=== PATIENT | female | born 1955 | race Caucasian/White ===

== ENCOUNTER → 2023-04-21 10:34 | Outpatient (REF) | payer MEDICARE, OTHER, SELFPAY ==
[2023-04-21 11:07] LABS: Blood Urea Nitrogen 47 mg/dl (7-17); Calcium 8.5 mg/dl (8.4-10.2); Carbon Dioxide 25 mmol/L (22-30); Chloride 106 mmol/L (98-107); Glucose 157 mg/dl (70-99); Potassium 3.8 mmol/L (3.5-5.1); Sodium 138 mmol/L (135-145); eGFR 28.58
== END ==
LOC: OLABN 10:34
PROVIDERS: ATTENDING PHYSICIAN Student in an Organized Health Care Education/Training Program
DX: E11.51 Type 2 diabetes mellitus with diabetic peripheral angiopathy without gangrene (principal)
CPT/HCPCS: 36415; 80048

== ENCOUNTER → 2023-04-25 08:53 | Outpatient (REF) | payer MEDICARE, OTHER, SELFPAY ==
[2023-04-25 10:39] LABS: Blood Urea Nitrogen 46 mg/dl (7-17); Calcium 8.6 mg/dl (8.4-10.2); Carbon Dioxide 22 mmol/L (22-30); Chloride 103 mmol/L (98-107); Glucose 113 mg/dl (70-99); Potassium 4.4 mmol/L (3.5-5.1); Sodium 137 mmol/L (135-145); eGFR 26.88
[2023-04-25 10:45] LABS: NT-proBNP 2360 pg/ml
== END ==
LOC: OLABN 08:53
PROVIDERS: ATTENDING PHYSICIAN Student in an Organized Health Care Education/Training Program
DX: E11.51 Type 2 diabetes mellitus with diabetic peripheral angiopathy without gangrene (principal)
CPT/HCPCS: 36415; 80048; 83880

== ENCOUNTER → 2023-04-28 10:38 | Outpatient (REF) | payer MEDICARE, OTHER, SELFPAY ==
[2023-04-28 11:13] LABS: Magnesium 2.1 mg/dl (1.6-2.3)
[2023-04-28 16:41] LABS: Urine Albumin Negative (Neg - Trace); Urine Bilirubin Negative (Negative); Urine Character Slightly Cloudy (Clear); Urine Color Yellow; Urine Glucose 3+ (Negative); Urine Ketone Negative (Negative); Urine Leukocyte 1+ (Negative); Urine Nitrite Negative (Negative); Urine Occult Blood Negative (Negative); Urine Urobilinogen Negative (Neg - 1+)
[2023-04-28 16:55] LABS: Urine Bacteria Many (Negative); Urine Red Blood Cell None Seen /HPF (0-2); Urine White Cell >100 /HPF (0-5)
== END ==
LOC: OLABN 10:38
PROVIDERS: ATTENDING PHYSICIAN Student in an Organized Health Care Education/Training Program
DX: E11.51 Type 2 diabetes mellitus with diabetic peripheral angiopathy without gangrene (principal); R35.0 Frequency of micturition
CPT/HCPCS: 36415; 81003; 81015; 83735; 87077; 87086; 87186

== ENCOUNTER 2023-05-01 01:01 | Emergency (ER) | payer MEDICARE, OTHER, SELFPAY ==
[2023-05-01 01:01] VITALS: BMI 34.7
[2023-05-01 01:06] VITALS: BP 107/60
[2023-05-01 01:23] LABS: % Basophils 0.5 % (0-2); % Eosinophils 2.7 % (0-6); % Immature Granulocytes 0.5 % (0-0.5); % Monocytes 8.1 % (1.7-9.3); % Neutrophils 65.2 % (42.2-75.2); Absolute Basophils 0.1 10^3/uL (0-0.2); Absolute Eosinophils 0.3 10^3/uL (0-0.7); Absolute Immature Granulocytes 0.1 10^3/uL (0-0.05); Absolute Lymphocytes 2.5 10^3/uL (1.2-3.4); Absolute Monocytes 0.9 10^3/uL (0.1-0.6); Absolute Neutrophils 7.1 10^3/uL (1.4-6.5); Hematocrit 29.6 % (37.0-47.0); Hemoglobin 9.8 g/dL (12.0-16.0); Mean Corp Hgb Conc. 33.1 g/dL (33.0-37.0); Mean Corpuscular Hgb 28.2 pg (27.0-31.0); Mean Corpuscular Volume 85.1 fL (81.0-99.0); Mean Platelet Volume 9.8 fL (7.4-10.4); Nucleated Red Blood Cells % 0 %; Platelet Count 261 10^3/uL (130-400); Red Blood Cell Count 3.48 10^6/uL (4.20-5.40); Red Cell Dist. Width 15.5 % (11.5-14.5); White Blood Cell Count 10.9 10^3/uL (4.8-10.8)
--- NOTE | 2023-05-01 01:30 | ED.GENMED ---
Addendum entered and electronically signed by Sascha Kennedy PA-C 05/04/23 07:26:
Ucx w/ low growth Klebsiella, pt prescribed levofloxacin, appropriate per C&S
Original Note:
History of Present Illness
<Larry Huntley Jr., PA-C - Last Filed: 05/01/23 18:01>
General
Chief Complaint: Musculo-Skeletal Complaint
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
Exam Limitations: none
Time Seen by Provider: 05/01/23 01:03
Nursing documentation reviewed up to this point in time: agreed with
Travel History
Have you had any contact with someone who has COVID-19?: No
Do you have any symptoms of coronavirus? Fever > 100 degrees, chills, cough, shortness of breath, sore throat, loss of taste or smell, muscle aches, or headache?: No
History of Present Illness
History of Present Illness:
The patient is a 68-year-old female with past medical history of neuropathy and vascular disease status post right-sided BKA, A-fib currently on Eliquis CHF hypertension hyperlipidemia, CKD, diabetes presenting to the emergency department today with
multiple concerns. Patient's main concern is 5 days of left lower abdominal pain bilateral flank pain and lower extremity achiness. She claims that she has been taking medications for neuropathy but claims that symptoms been worsening recently
chest pain shortness of breath fevers upper respiratory symptoms. She has a history of kidney stones as well as diverticulitis that felt somewhat similar.
Past History
<Larry Huntley Jr., PA-C - Last Filed: 05/01/23 18:01>
Past History
ED Past Medical History: Arrthythmia (Atrial fibrillation), CAD, CHF, HTN, Hypercholesterolemia, IDDM, Psychiatric (Anxiety, bipolar disorder, Depression), Other (Peripheral Vascular disease, Cellulitis, MRSA, PNA, Cellulitis, UTI, Chronic back ain,
Diabetic neuropathy, PNA, Glaucoma, Anemia iron def, Herniated disc) and Other (Herniated disc)
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
Social History
Tobacco: Non-smoker (Secondhand smoke exposure)
Alcohol: None
Drug: None
Personal:
Living: senior living ([facility])
Employment: Employed
Family History
Family History: Other (Father with MS, mother with diabetes, sister with diabetes)
Review of Systems
<Larry Huntley Jr., PA-C - Last Filed: 05/01/23 18:01>
Review of Systems
Allergies reviewed?: Yes
All Other Systems: ROS reviewed and negative except as documented in HPI and ROS
Phy Exam
<Larry Huntley Jr., PA-C - Last Filed: 05/01/23 18:01>
Physical Exam
Physical Exam:
GENERAL: Alert , in no apparent distress
EYE: pupils equal and reactive
NECK: Supple, no significant adenopathy.
ENT: o/p clr, mmm.
CARDIAC: Regular rate and rhythm .
LUNGS: Clear breath sounds bilaterally, no acute respiratory distress, no wheezes/rales/rhonchi
ABDOMEN: Left lower quadrant abdominal pain.
NEUROLOGICAL: Alert and oriented, no focal neuro deficits
SKIN: Warm and dry, skin intact.
MUSCULOSKELETAL: No edema, well perfused.
PSYCH: Normal and appropriate interaction.
Course
<Larry Huntley Jr., PA-C - Last Filed: 05/01/23 18:01>
Orders/Labs/Results
Orders:
Orders
05/01/23 01:16
CBC/With Diff [Complete Blood Count/With Diff] Urgent
CMP [Comprehensive Metabolic Panel] Urgent
Lipase Urgent
Comment: ADD ON
05/01/23 01:30
Add On- LAB Urgent
Tests Added?: lipase
05/01/23 01:45
CT Abd/pel (oral only)-[facility] Only Urgent
Comment:
Reason For Exam: llq pain and flank pain
Iohexol [Omnipaque] See Protocol PO NOW STA
05/01/23 01:56
Lactic Acid Urgent
Urinalysis Reflex To Culture Urgent
Date Specimen was Collected: 05/01/23
Time Specimen was Collected: 01:54
Urine Microscopic Reflex Cult Urgent
Urine Culture Urgent
KELSEY Source: U
Specimen Description:
Date Specimen was Collected: 05/01/23
Time Specimen was Collected: 01:54
05/01/23 02:02
Ondansetron Injectable [Zofran] 4 mg IV NOW STA
05/01/23 06:09
Sulfamethox./Trimethoprim Ds [Bactrim Ds 800 mg/160 mg] 1 tablet PO NOW STA
05/01/23 06:25
LevoFLOXacin [Levaquin] 750 mg .ROUTE .STK-MED ONE
05/01/23 06:37
LevoFLOXacin [Levaquin] 750 mg PO NOW STA
Abnormal Lab Results
05/01/23 05/01/23
01:16 01:56
WBC 10.9 H 10^3/uL
(4.8-10.8)
RBC 3.48 L 10^6/uL
(4.20-5.40)
Hgb 9.8 L g/dL
(12.0-16.0)
Hct 29.6 L %
(37.0-47.0)
RDW 15.5 H %
(11.5-14.5)
Abs Immat Gran (auto) 0.1 H 10^3/uL
(0-0.05)
Absolute Neuts (auto) 7.1 H 10^3/uL
(1.4-6.5)
Absolute Monos (auto) 0.9 H 10^3/uL
(0.1-0.6)
BUN 59 H mg/dl
(7-17)
Creatinine 2.0 H mg/dL
(0.6-1.0)
Glucose 246 H mg/dl
(70-99)
Total Protein 6.0 L g/dl
(6.3-8.2)
Albumin 3.3 L g/dl
(3.5-5.0)
Ur Occult Blood Reflex Trace A
(Negative)
Leukocyte Esterase Rfl 2+ A
(Negative)
Urine WBC (Reflex) >100 A /HPF
(0-5)
Urine Bacteria (Reflex) Few A
(Negative)
Urine Glucose 3+ A
(Negative)
05/01/23 01:16
05/01/23 01:16
Vital Signs
Initial and Last Documented VS:
Initial Vital Signs
Temp Pulse Resp BP Pulse Ox
97.9 F 65 16 107/60 99
05/01/23 01:06 05/01/23 01:06 05/01/23 01:06 05/01/23 01:06 05/01/23 01:06
Last Documented Vital Signs
Temp Pulse Resp BP Pulse Ox
97.9 F 70 38 107/51 99
05/01/23 01:06 05/01/23 04:15 05/01/23 04:15 05/01/23 04:00 05/01/23 02:15
<Elieser Cristina DO - Last Filed: 05/01/23 06:38>
Orders/Labs/Results
Orders:
Orders
05/01/23 01:16
CBC/With Diff [Complete Blood Count/With Diff] Urgent
CMP [Comprehensive Metabolic Panel] Urgent
Lipase Urgent
Comment: ADD ON
05/01/23 01:30
Add On- LAB Urgent
Tests Added?: lipase
05/01/23 01:45
CT Abd/pel (oral only)-[facility] Only Urgent
Comment:
Reason For Exam: llq pain and flank pain
Iohexol [Omnipaque] See Protocol PO NOW STA
05/01/23 01:56
Lactic Acid Urgent
Urinalysis Reflex To Culture Urgent
Date Specimen was Collected: 05/01/23
Time Specimen was Collected: 01:54
Urine Microscopic Reflex Cult Urgent
Urine Culture Urgent
KELSEY Source: U
Specimen Description:
Date Specimen was Collected: 05/01/23
Time Specimen was Collected: 01:54
05/01/23 02:02
Ondansetron Injectable [Zofran] 4 mg IV NOW STA
05/01/23 06:09
Sulfamethox./Trimethoprim Ds [Bactrim Ds 800 mg/160 mg] 1 tablet PO NOW STA
05/01/23 06:25
LevoFLOXacin [Levaquin] 750 mg .ROUTE .STK-MED ONE
05/01/23 06:37
LevoFLOXacin [Levaquin] 750 mg PO NOW STA
Abnormal Lab Results
05/01/23 05/01/23
01:16 01:56
WBC 10.9 H 10^3/uL
(4.8-10.8)
RBC 3.48 L 10^6/uL
(4.20-5.40)
Hgb 9.8 L g/dL
(12.0-16.0)
Hct 29.6 L %
(37.0-47.0)
RDW 15.5 H %
(11.5-14.5)
Abs Immat Gran (auto) 0.1 H 10^3/uL
(0-0.05)
Absolute Neuts (auto) 7.1 H 10^3/uL
(1.4-6.5)
Absolute Monos (auto) 0.9 H 10^3/uL
(0.1-0.6)
BUN 59 H mg/dl
(7-17)
Creatinine 2.0 H mg/dL
(0.6-1.0)
Glucose 246 H mg/dl
(70-99)
Total Protein 6.0 L g/dl
(6.3-8.2)
Albumin 3.3 L g/dl
(3.5-5.0)
Ur Occult Blood Reflex Trace A
(Negative)
Leukocyte Esterase Rfl 2+ A
(Negative)
Urine WBC (Reflex) >100 A /HPF
(0-5)
Urine Bacteria (Reflex) Few A
(Negative)
Urine Glucose 3+ A
(Negative)
05/01/23 01:16
05/01/23 01:16
Vital Signs
Initial and Last Documented VS:
Initial Vital Signs
Temp Pulse Resp BP Pulse Ox
97.9 F 65 16 107/60 99
05/01/23 01:06 05/01/23 01:06 05/01/23 01:06 05/01/23 01:06 05/01/23 01:06
Last Documented Vital Signs
Temp Pulse Resp BP Pulse Ox
97.9 F 70 38 107/51 99
05/01/23 01:06 05/01/23 04:15 05/01/23 04:15 05/01/23 04:00 05/01/23 02:15
<Larry Huntley Jr., PA-C - Last Filed: 05/01/23 18:01>
MDM/Problems Addressed
MDM/Problems Addressed:
68-year-old female presenting to the emergency department today with concerns mainly of left lower quad abdominal pain flank pain as well as leg discomfort worsening over the past 5 days. Does have chronic leg pain as a feels slightly worse than
usual. Also claims that she is had diverticulitis in the past has some left-sided abdominal pain as well as flank pain has a history of stones. Plan for CT scan for further assessment as well as urinalysis and labs. On my examination no specific
chest pain shortness of breath fevers, vital signs are normal upon arrival here. CT scan pending when care transition to attending physician. Patient stable throughout ER stay.
<Larry Huntley Jr., PA-C - Last Filed: 05/01/23 18:01>
*Critical Care Note
Total Time (30-74mins, 75-104mins- exclusive of procedures): Not Applicable
ED Attending Note
<Larry Huntley Jr., PA-C - Last Filed: 05/01/23 18:01>
-
Portions of this chart may have been created with voice recognition software.� Occasional wrong word or��sound alike� substitutions may have occurred due to the inherent limitations of voice recognition software.
<Elieser Cristina DO - Last Filed: 05/01/23 06:38>
ED Attending Note
Patient seen and examined by attending physician: Yes
I performed the substantive portion of visit, reviewed & personally made and approve the management plan that is documented in note by myself or JOSUE.: Yes
ED Attending Note:
68-year-old female presents with low back pain present for the last 4 to 5 days. Patient treated for UTI on Macrobid. CT scan shows mild left hydroureteronephrosis without a visualized obstructing calculi likely reflecting a recently passed stone
versus an ascending UTI. Urinalysis does show signs of UTI. She was on Macrobid. Will switch to Bactrim based on patient's allergy profile. Patient in agreement. Will be sent to the [facility]. Patient was seen in conjunction with the PA.
I have reviewed and agree with the history and treatment plan presented. On my independent physical exam, patient is awake, alert, and in no acute distress. Heart is regular rate and rhythm. Lungs are clear to auscultation bilaterally no wheezes
rales or rhonchi abdomen is soft and nontender plan. Plan is discharge home to [facility].
Discharge Plan
Departure
Patient Disposition: Long-Term/SNF
Date of Disposition: 05/01/23
Time of Disposition: 06:12
Discharge Problem:
Acute UTI, Acute flank pain
Instructions: Flank Pain (DC), Urinary Tract Infection, Adult ED
Prescriptions:
New
levofloxacin 750 mg tablet
750 mg PO DAILY 7 Days Qty: 7 0RF
No Action
Eliquis 5 MG tablet
5 mg PO BID
trazodone 50 MG tablet
75 mg PO HS
carvedilol 6.25 MG tablet
6.25 mg PO BID Qty: 60 0RF
insulin aspart U-100 [Novolog FlexPen U-100 Insulin] 300 UNITS/3 ML insulin pen
See Rx Instructions .ROUTE .COMPLEX
Rx Instructions:
71-150= 0
151-200= 2
201-250= 4
251-300= 6
301-350= 8
351-400= 10
>400= 12
fluoxetine 40 mg Capsule
40 mg PO DAILY
lamotrigine [Lamictal] 150 mg Tablet
150 mg PO DAILY
atorvastatin 80 mg tablet
80 mg PO HS
acetaminophen 325 mg Tablet
650 mg PO Q4H PRN (Reason: mild pain/fever >100.4)
lidocaine 4 % Adhesive Patch,Medicated
1 patch TOPICAL HS PRN (Reason: Pain)
magnesium hydroxide [Milk of Magnesia] 400 mg/5 mL Suspension
30 ml PO HS PRN (Reason: lack of bm)
diclofenac sodium 1 % Gel
1 g TOPICAL BID
Entresto 24-26 mg Tablet
1 tab PO BID
Levemir U-100 Insulin 1,000 UNITS/10 ML solution
20 units SC BID@829,2029
latanoprost [Xalatan] 0.005 % Drops
1 drp OPHTHALMIC (EYE) DAILY
Rx Instructions:
left eye
bumetanide 2 mg Tablet
2 mg PO BID
ondansetron HCl 4 mg Tablet
4 mg PO Q6HPRN PRN (Reason: nausea)
sennosides-docusate sodium [Senna with Docusate Sodium] 8.6-50 mg Tablet
1 tab-cap PO HS
loperamide [Imodium A-D] 2 mg Tablet
2 mg PO Q6H PRN (Reason: diarrhea)
bisacodyl 10 mg Suppository
10 mg MD DAILY PRN (Reason: constipation)
pantoprazole [Protonix] 40 mg Tablet,Delayed Release (Dr/Ec)
40 mg PO DAILY
ferrous sulfate [iron] 325 mg (65 mg iron) Tablet
325 mg PO DAILY
Fleet Enema 19-7 gram/118 mL Enema
118 ml MD ONCE
dorzolamide-timolol 22.3-6.8 mg/mL Drops
1 drp OPHTHALMIC (EYE) BID
Rx Instructions:
left eye
lorazepam [Ativan] 1 mg Tablet
1 mg PO BID
brimonidine [Alphagan P] 0.15 % Drops
1 drp OPHTHALMIC (EYE) BID
Rx Instructions:
left eye
Vicks Vaporub 4.7-1.2-2.6 % Ointment
1 applic TOPICAL [id number] PRN (Reason: congestion)
Refresh Optive Advanced 0.5-1-0.5 % Drops
1 drp OPHTHALMIC (EYE) DAILY
Farxiga 10 mg Tablet
10 mg PO DAILY
insulin aspart U-100 [Novolog U-100 Insulin aspart] 100 unit/mL Solution
12 unit SC TID
cyclobenzaprine 5 mg Tablet
5 mg PO HS
aspirin 81 mg Tablet,Chewable
81 mg PO DAILY Qty: 0 0RF
buspirone 5 mg Tablet
5 mg PO DAILY
diphenhydramine HCl 25 mg Tablet
25 mg PO DAILY PRN (Reason: pruritus)
clobetasol 0.05 % Ointment
1 applic TOPICAL DAILY
fluocinolone 0.01 % Solution
1 applic TOPICAL DAILY
cefdinir 300 mg capsule
300 mg PO BID Qty: 14 0RF
Referrals:
Paulo Loera DO [Family Provider] -
Interventions
Interventions:
*Risk Screen - Suicide Last Done: 05/01/23 01:06
*General Assessment Last Done: 05/01/23 01:06
*Neglect/Abuse Screening Last Done: 05/01/23 01:06
ED- Fall Risk Assessment Last Done: 05/01/23 01:50
*ED COVID-19 Vaccine History Last Done: 05/01/23 07:00
*Nursing Disposition Last Done: 05/01/23 07:00
ED-Musculoskeletal Assessment Last Done: 05/01/23 01:31
Discharge Date and Time
Discharge Date/Time: 05/01/23 07:00
[2023-05-01 01:38] LABS: ALT (SGPT) 10 U/L (0-35); AST (SGOT) 15 U/L (14-36); Albumin 3.3 g/dl (3.5-5.0); Alkaline Phosphatase 117 U/L (38-126); Blood Urea Nitrogen 59 mg/dl (7-17); Carbon Dioxide 25 mmol/L (22-30); Chloride 99 mmol/L (98-107); Estimated Creatinine Clearance 33 ml/min; Glucose 246 mg/dl (70-99); Potassium 4.2 mmol/L (3.5-5.1); Sodium 137 mmol/L (135-145); Total Bilirubin 0.5 mg/dl (0.2-1.3); eGFR 26.88
[2023-05-01 01:53] LABS: Lipase 107 U/L (23-300)
[2023-05-01 02:00] VITALS: BP 95/43
[2023-05-01 02:07] LABS: Urine Albumin Trace (Neg - Trace); Urine Bilirubin Negative (Negative); Urine Character Slightly Cloudy (Clear); Urine Color Straw; Urine Glucose 3+ (Negative); Urine Ketone Negative (Negative); Urine Leukocyte 2+ (Negative); Urine Nitrite Negative (Negative); Urine Occult Blood Trace (Negative); Urine Urobilinogen Negative (Neg - 1+)
[2023-05-01] MEDS: ZOFRAN 4 MG IV (02:11)
[2023-05-01] MEDS: OMNIPAQUE 50 ML PO (02:12)
[2023-05-01 02:13] LABS: Urine White Cell >100 /HPF (0-5)
[2023-05-01 02:14] LABS: Urine Bacteria Few (Negative); Urine Red Blood Cell 0-2 /HPF (0-2)
[2023-05-01 02:22] LABS: Lactic Acid 1.5 mmol/L (0.7-2.0)
[2023-05-01 03:00] VITALS: BP 102/49
[2023-05-01 04:00] VITALS: BP 107/51
[2023-05-01] MEDS: LEVAQUIN 750 MG PO (06:47)
== END 2023-05-01 07:00 ==
LOC: EMR 01:01
PROVIDERS: Physician Assistant; EMERGENCY PHYSICIAN Student in an Organized Health Care Education/Training Program; FAMILY PHYSICIAN Student in an Organized Health Care Education/Training Program
DX: N39.0 Urinary tract infection, site not specified (principal); R10.32 Left lower quadrant pain; R07.9 Chest pain, unspecified; R06.02 Shortness of breath; N13.30 Unspecified hydronephrosis; M54.50 Low back pain, unspecified; M79.606 Pain in leg, unspecified; E11.40 Type 2 diabetes mellitus with diabetic neuropathy, unspecified; I48.91 Unspecified atrial fibrillation; I13.0 Hypertensive heart and chronic kidney disease with heart failure and stage 1 through stage 4 chronic kidney disease, or unspecified chronic kidney disease; I50.9 Heart failure, unspecified; N18.9 Chronic kidney disease, unspecified; I25.10 Atherosclerotic heart disease of native coronary artery without angina pectoris; E78.00 Pure hypercholesterolemia, unspecified; F31.9 Bipolar disorder, unspecified; F41.9 Anxiety disorder, unspecified; E11.22 Type 2 diabetes mellitus with diabetic chronic kidney disease; E11.36 Type 2 diabetes mellitus with diabetic cataract; E11.51 Type 2 diabetes mellitus with diabetic peripheral angiopathy without gangrene; M51.25 Other intervertebral disc displacement, thoracolumbar region; K57.92 Diverticulitis of intestine, part unspecified, without perforation or abscess without bleeding; H40.9 Unspecified glaucoma; G89.29 Other chronic pain; Z95.5 Presence of coronary angioplasty implant and graft; Z87.440 Personal history of urinary (tract) infections; Z86.14 Personal history of Methicillin resistant Staphylococcus aureus infection; Z89.511 Acquired absence of right leg below knee; Z79.01 Long term (current) use of anticoagulants; Z79.4 Long term (current) use of insulin; Z79.82 Long term (current) use of aspirin; Z88.1 Allergy status to other antibiotic agents; Z88.0 Allergy status to penicillin
CPT/HCPCS: 99284; 96374; 74176; 80053; 81003; 81015; 83605; 83690; 85025; 87077; 87086; 87186

== ENCOUNTER → 2023-05-03 11:16 | Outpatient (REF) | payer MEDICARE, OTHER, SELFPAY ==
[2023-05-03 11:41] LABS: % Basophils 0.6 % (0-2); % Immature Granulocytes 0.5 % (0-0.5); % Lymphocytes 34.8 % (20.5-51.1); % Monocytes 8.9 % (1.7-9.3); % Neutrophils 53.2 % (42.2-75.2); Absolute Basophils 0.1 10^3/uL (0-0.2); Absolute Eosinophils 0.2 10^3/uL (0-0.7); Absolute Monocytes 0.8 10^3/uL (0.1-0.6); Absolute Neutrophils 4.6 10^3/uL (1.4-6.5); Hematocrit 29.3 % (37.0-47.0); Hemoglobin 9.4 g/dL (12.0-16.0); Mean Corp Hgb Conc. 32.1 g/dL (33.0-37.0); Mean Corpuscular Hgb 28.5 pg (27.0-31.0); Mean Corpuscular Volume 88.8 fL (81.0-99.0); Mean Platelet Volume 10.9 fL (7.4-10.4); Nucleated Red Blood Cells % 0 %; Platelet Count 218 10^3/uL (130-400); Red Cell Dist. Width 15.9 % (11.5-14.5); White Blood Cell Count 8.7 10^3/uL (4.8-10.8)
[2023-05-03 11:46] LABS: Blood Urea Nitrogen 64 mg/dl (7-17); Carbon Dioxide 25 mmol/L (22-30); Chloride 99 mmol/L (98-107); Glucose 101 mg/dl (70-99); Iron 56 ug/dl (37-170); Potassium 4.1 mmol/L (3.5-5.1); Sodium 136 mmol/L (135-145); eGFR 17.95
[2023-05-03 11:48] LABS: NT-proBNP 1570 pg/ml
[2023-05-03 12:13] LABS: Ferritin 58.1 ng/ml (11.1-264.0)
== END ==
LOC: OLABN 11:16
PROVIDERS: ATTENDING PHYSICIAN Student in an Organized Health Care Education/Training Program
DX: I50.40 Unspecified combined systolic (congestive) and diastolic (congestive) heart failure (principal); D50.9 Iron deficiency anemia, unspecified
CPT/HCPCS: 36415; 80048; 82728; 83540; 83880; 85025

== ENCOUNTER 2023-05-06 13:11 | Emergency (ER) | payer MEDICARE, OTHER, SELFPAY ==
[2023-05-06 13:14] VITALS: BP 120/54; BMI 34.8
[2023-05-06 13:40] LABS: % Basophils 0.5 % (0-2); % Eosinophils 1.9 % (0-6); % Immature Granulocytes 0.5 % (0-0.5); % Lymphocytes 26.8 % (20.5-51.1); % Monocytes 5.8 % (1.7-9.3); % Neutrophils 64.5 % (42.2-75.2); Absolute Basophils 0.1 10^3/uL (0-0.2); Absolute Eosinophils 0.2 10^3/uL (0-0.7); Absolute Immature Granulocytes 0.1 10^3/uL (0-0.05); Absolute Lymphocytes 2.6 10^3/uL (1.2-3.4); Absolute Monocytes 0.6 10^3/uL (0.1-0.6); Absolute Neutrophils 6.3 10^3/uL (1.4-6.5); Hematocrit 33.4 % (37.0-47.0); Hemoglobin 11.1 g/dL (12.0-16.0); Mean Corp Hgb Conc. 33.2 g/dL (33.0-37.0); Mean Corpuscular Hgb 28.1 pg (27.0-31.0); Mean Corpuscular Volume 84.6 fL (81.0-99.0); Mean Platelet Volume 10.3 fL (7.4-10.4); Nucleated Red Blood Cells % 0 %; Platelet Count 235 10^3/uL (130-400); Red Blood Cell Count 3.95 10^6/uL (4.20-5.40); Red Cell Dist. Width 15.9 % (11.5-14.5); White Blood Cell Count 9.8 10^3/uL (4.8-10.8)
--- NOTE | 2023-05-06 13:40 | ED.GENMED ---
History of Present Illness
<Miriam Coleman PA-C - Last Filed: 05/06/23 22:30>
General
Chief Complaint: Abdominal Pain
Source: patient
Exam Limitations: none
Time Seen by Provider: 05/06/23 13:25
Nursing documentation reviewed up to this point in time: agreed with
Travel History
Have you had any contact with someone who has COVID-19?: No
Do you have any symptoms of coronavirus? Fever > 100 degrees, chills, cough, shortness of breath, sore throat, loss of taste or smell, muscle aches, or headache?: No
History of Present Illness
History of Present Illness:
This is a 68-year-old female with a past medical history of CKD, insulin-dependent diabetes, CHF, hypertension presenting to emergency department today with diffuse abdominal pain and distention for the past 5 days. She states that when the pain
started, was very mild and she was seen here in the ED on Tuesday for urinary symptoms and was treated for UTI. She was treated with levofloxacin and is currently still taking it. She denies any fevers or chills at home. She states that she has
also had constipation for the past week. She states that she normally has constipation but is usually able to be cleared with Colace and other medications. She states that she has not had a bowel movement in 6 days. She also has associated nausea
and vomiting. She states that she is barely able to get anything down without vomiting. She denies any history of abdominal surgeries.
Past History
<Miriam Coleman PA-C - Last Filed: 05/06/23 22:30>
Past History
ED Past Medical History: Arrthythmia (Atrial fibrillation), CAD, CHF, HTN, Hypercholesterolemia, IDDM, Psychiatric (Anxiety, bipolar disorder, Depression), Other (Peripheral Vascular disease, Cellulitis, MRSA, PNA, Cellulitis, UTI, Chronic back ain,
Diabetic neuropathy, PNA, Glaucoma, Anemia iron def, Herniated disc) and Other (Herniated disc)
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
Social History
Tobacco: Non-smoker (Secondhand smoke exposure)
Alcohol: None
Drug: None
Personal:
Living: penitentiary ([facility])
Employment: Employed
Family History
Family History: Other (Father with [place], mother with diabetes, sister with diabetes)
Review of Systems
<Miriam Coleman PA-C - Last Filed: 05/06/23 22:30>
Review of Systems
All Other Systems: ROS reviewed and negative except as documented in HPI and ROS
Phy Exam
<Miriam Coleman PA-C - Last Filed: 05/06/23 22:30>
Physical Exam
Physical Exam:
Vitals: vitals are stable, patient is afebrile
General: Patient is ill-appearing
Skin: warm and dry, no rashes or lesions
Head: normocephalic, atraumatic
Cardiac: regular rate and rhythm, no murmurs
Pulm: normal respiratory effort, no wheezes, rales, or rhonchi
Abdomen: abdomen is distended and rigid, diffusely tender to palpation, non-tympanic to percussion.
Neuro: AAO x3.
Course
<Miriam Coleman PA-C - Last Filed: 05/06/23 22:30>
Orders/Labs/Results
Orders:
Orders
05/06/23 13:13
Electrocardiogram (*1) Urgent
Reason for Study: Abdominal Pain
EKG- Treatment ONCE
IV Insert/Care/Rem.- Treatment PRN
05/06/23 13:22
Complete Blood Count/With Diff Urgent
Comprehensive Metabolic Panel Urgent
Lipase Urgent
02/16/24 13:54
0.9% Sodium Chloride 1000 ml [Nss] 1,000 ml IV BOLUS
05/06/23 14:20
HYDROmorphone [Dilaudid] 0.5 mg IV NOW STA
Ondansetron Injectable [Zofran] 4 mg IV NOW STA
05/06/23 14:35
CT Abd/pel Without Iv Or Oral Urgent
Comment:
Reason For Exam: diffuse ab pain, abdominal distension
05/06/23 15:53
Polyethylene Glycol Powder [Miralax] 17 grams PO NOW STA
05/06/23 17:48
Oxycodone [Roxicodone] 5 mg PO NOW STA
Abnormal Lab Results
05/06/23
13:22
RBC 3.95 L 10^6/uL
(4.20-5.40)
Hgb 11.1 L g/dL
(12.0-16.0)
Hct 33.4 L %
(37.0-47.0)
RDW 15.9 H %
(11.5-14.5)
Abs Immat Gran (auto) 0.1 H 10^3/uL
(0-0.05)
BUN 62 H mg/dl
(7-17)
Creatinine 2.7 H mg/dL
(0.6-1.0)
Glucose 184 H mg/dl
(70-99)
Alkaline Phosphatase 137 H U/L
(38-126)
05/06/23 13:22
05/06/23 13:22
Vital Signs
Initial and Last Documented VS:
Initial Vital Signs
Temp Pulse Resp BP Pulse Ox
98.0 F 69 17 120/54 98
05/06/23 13:14 05/06/23 13:14 05/06/23 13:14 05/06/23 13:14 05/06/23 13:14
Last Documented Vital Signs
Temp Pulse Resp BP Pulse Ox
98.0 F 60 14 112/48 97
05/06/23 13:14 05/06/23 15:00 05/06/23 15:00 05/06/23 15:00 05/06/23 14:15
<Kehinde Navin Marquez, - Last Filed: 05/06/23 14:36>
Orders/Labs/Results
Orders:
Orders
05/06/23 13:13
Electrocardiogram (*1) Urgent
Reason for Study: Abdominal Pain
EKG- Treatment ONCE
IV Insert/Care/Rem.- Treatment PRN
05/06/23 13:22
Complete Blood Count/With Diff Urgent
Comprehensive Metabolic Panel Urgent
Lipase Urgent
05/06/23 13:54
0.9% Sodium Chloride 1000 ml [Nss] 1,000 ml IV BOLUS
05/06/23 14:20
HYDROmorphone [Dilaudid] 0.5 mg IV NOW STA
Ondansetron Injectable [Zofran] 4 mg IV NOW STA
05/06/23 14:35
CT Abd/pel Without Iv Or Oral Urgent
Comment:
Reason For Exam: diffuse ab pain, abdominal distension
05/06/23 15:53
Polyethylene Glycol Powder [Miralax] 17 grams PO NOW STA
05/06/23 17:48
Oxycodone [Roxicodone] 5 mg PO NOW STA
Abnormal Lab Results
05/06/23
13:22
RBC 3.95 L 10^6/uL
(4.20-5.40)
Hgb 11.1 L g/dL
(12.0-16.0)
Hct 33.4 L %
(37.0-47.0)
RDW 15.9 H %
(11.5-14.5)
Abs Immat Gran (auto) 0.1 H 10^3/uL
(0-0.05)
BUN 62 H mg/dl
(7-17)
Creatinine 2.7 H mg/dL
(0.6-1.0)
Glucose 184 H mg/dl
(70-99)
Alkaline Phosphatase 137 H U/L
(38-126)
05/06/23 13:22
05/06/23 13:22
Vital Signs
Initial and Last Documented VS:
Initial Vital Signs
Temp Pulse Resp BP Pulse Ox
98.0 F 69 17 120/54 98
05/06/23 13:14 05/06/23 13:14 05/06/23 13:14 05/06/23 13:14 05/06/23 13:14
Last Documented Vital Signs
Temp Pulse Resp BP Pulse Ox
98.0 F 60 14 112/48 97
05/06/23 13:14 05/06/23 15:00 05/06/23 15:00 05/06/23 15:00 05/06/23 14:15
<Miriam Coleman PA-C - Last Filed: 05/06/23 22:30>
MDM/Problems Addressed
Differential Diagnosis Includes:
ddx include small bowel obstruction, large bowel obstruction, constipation, gastritis, perforated diverticulitis
MDM/Problems Addressed:
abdominal pain
nausea
vomiting
Chronic conditions affecting care: DM, HTN and Kidney disease
<Miriam Coleman PA-C - Last Filed: 05/06/23 22:30>
*Pulse Oximetry
Patient hypoxic: no
*Critical Care Note
Total Time (30-74mins, 75-104mins- exclusive of procedures): Not Applicable
Data Reviewed
Review of Other/Old Records Reveals: Records (Reviewed ER physician and patient patient from 05/01/2023) and Discharge Summary (Reviewed discharge summary from 10/23/22)
<Miriam Coleman PA-C - Last Filed: 05/06/23 22:30>
Patient Management
Escalation/DeEscalation of care consider admission/obs:
This is a 68-year-old female with a past medical history of CKD, insulin-dependent diabetes, CHF, hypertension presenting to emergency department today with diffuse abdominal pain and distention for the past 5 days. On exam, she appears chronically
ill, has an elevated BMI, and has a rigid abdomen with moderate tenderness. Her CT scan of the abdomen revealed left increase in left ureteral dilation when compared to previous scan, no stone. No bowel obstruction. She is medically stable at this
point, will give miralax and pain xontrol will discharge back to [facility]
ED Attending Note
<Miriam Coleman PA-C - Last Filed: 05/06/23 22:30>
-
Portions of this chart may have been created with voice recognition software.� Occasional wrong word or��sound alike� substitutions may have occurred due to the inherent limitations of voice recognition software.
<Kehinde Marquez DO - Last Filed: 05/06/23 14:36>
ED Attending Note
Patient seen and examined by attending physician: Yes
I performed the substantive portion of visit, reviewed & personally made and approve the management plan that is documented in note by myself or JOSUE.: Yes
I performed a history and physical exam of patient and discussed management with resident, I reviewed resident's note and agree with documented findings and plan of care.: Yes
ED Attending Note:
I evaluated the patient at bedside. The patient appears chronically ill with elevated BMI. White count normal but she does have moderate tenderness on examination. She has been constipated and reports vomiting.
Discharge Plan
Departure
Patient Disposition: Home (Routine Discharge)
Date of Disposition: 05/06/23
Time of Disposition: 16:05
Patient with high blood pressure during this ER visit?: No
Condition: Good
Discharge Problem:
Abdominal pain
Instructions: Constipation, Adult (DC), Abdominal Pain
Prescriptions:
No Action
Eliquis 5 MG tablet
5 mg PO BID
trazodone 50 MG tablet
75 mg PO HS
insulin aspart U-100 [Novolog FlexPen U-100 Insulin] 300 UNITS/3 ML insulin pen
0 - 12 sliding scale dose SC TID@0800,1200,1700
Rx Instructions:
Sliding Scale: if 71-150= 0; 151-200= 2; 201-250= 4; 251-300= 6; 301-350= 8; 351-400= 10; >400= 12
fluoxetine 40 mg Capsule
40 mg PO DAILY@1430
Rx Instructions:
taken w/ 10mg = 50mg
lamotrigine [Lamictal] 150 mg Tablet
150 mg PO QPM
atorvastatin 80 mg tablet
80 mg PO QPM
acetaminophen 325 mg Tablet
650 mg PO Q4H PRN (Reason: mild pain/fever >100.4)
lidocaine 4 % Adhesive Patch,Medicated
1 patch TOPICAL HS PRN (Reason: Pain)
Rx Instructions:
apply to left lateral shoulder
magnesium hydroxide [Milk of Magnesia] 400 mg/5 mL Suspension
30 ml PO HS PRN (Reason: lack of bm)
diclofenac sodium 1 % Gel
2 g TOPICAL BID@999,1900
Rx Instructions:
apply to neck areas
Entresto 24-26 mg Tablet
1 tab PO BID
Levemir U-100 Insulin 1,000 UNITS/10 ML solution
20 units SC BID@829,2029
latanoprost [Xalatan] 0.005 % Drops
1 drp BOTH EYES HS
bumetanide 2 mg Tablet
2 mg PO BID@0830,143
loperamide [Imodium A-D] 2 mg Tablet
2 mg PO Q6H PRN (Reason: diarrhea)
bisacodyl 10 mg Suppository
10 mg [place] DAILY PRN (Reason: if mom ineffective)
pantoprazole [Protonix] 40 mg Tablet,Delayed Release (Dr/Ec)
40 mg PO DAILY@2029
ferrous sulfate [iron] 325 mg (65 mg iron) Tablet
325 mg PO MOWEFR
Fleet Enema 19-7 gram/118 mL Enema
118 ml [place] DAILY PRN (Reason: no results from suppository/refuse suppository)
dorzolamide-timolol 22.3-6.8 mg/mL Drops
1 drp LEFT EYE BID@
lorazepam [Ativan] 1 mg Tablet
1 mg PO BID
brimonidine [Alphagan P] 0.15 % Drops
1 drp LEFT EYE BID@
Vicks Vaporub 4.7-1.2-2.6 % Ointment
1 applic TOPICAL [id number] PRN (Reason: congestion)
Rx Instructions:
apply to chest congestion
Refresh Optive Advanced 0.5-1-0.5 % Drops
1 drp BOTH EYES DAILY PRN (Reason: glaucoma)
dapagliflozin propanediol [Farxiga] 10 mg Tablet
10 mg PO DAILY
insulin aspart U-100 [Novolog U-100 Insulin aspart] 100 unit/mL Solution
12 unit SC TID@0800,1200,1700
diphenhydramine HCl 25 mg Tablet
25 mg PO DAILY PRN (Reason: pruritus)
clobetasol 0.05 % Ointment
1 applic TOPICAL DAILY PRN (Reason: vaginal redness)
fluocinolone 0.01 % Solution
1 applic TOPICAL DAILY
Rx Instructions:
apply to excoriated areas on left parietal scalp and right posterior neck
levofloxacin 750 mg tablet
750 mg PO DAILY 7 Days Qty: 7 0RF
fluoxetine 10 mg Capsule
10 mg PO DAILY@1430
Rx Instructions:
taken w/ 40mg = 50mg
docusate sodium 100 mg Capsule
100 mg PO DAILY
ondansetron 4 mg tablet,disintegrating
4 mg PO Q6H PRN (Reason: nausea/vomiting)
Saccharomyces boulardii [Probiotic (S.boulardii)] 250 mg Capsule
250 mg PO BID@
oseltamivir 30 mg capsule
30 mg PO QPM
Ricola 2 mg Lozenge
2 mg PO Q4H PRN (Reason: cough)
carvedilol 6.25 MG tablet
6.25 mg PO BID@
aspirin 81 mg tablet,chewable
81 mg PO QPM
Referrals:
Paulo Loera DO [Family Provider] -
Activity Restrictions/Additional Instructions:
Please follow up with your primary care provider.
Please return to the emergency department should you experience any chest pain, shortness of breath, acute worsening of your pain, or other concerning signs or symptoms.
Interventions
Interventions:
*General Assessment Last Done: 05/06/23 13:14
*Neglect/Abuse Screening Last Done: 05/06/23 13:14
ED- Fall Risk Assessment Last Done: 05/06/23 13:35
*Nursing Disposition Last Done: 05/06/23 17:58
ER-Irkbkk-Rqxnkwqjkc Assessment Last Done: 05/06/23 13:35
Discharge Date and Time
Discharge Date/Time: 05/06/23 17:59
[2023-05-06 13:59] LABS: ALT (SGPT) 12 U/L (0-35); AST (SGOT) 19 U/L (14-36); Albumin 3.9 g/dl (3.5-5.0); Alkaline Phosphatase 137 U/L (38-126); Blood Urea Nitrogen 62 mg/dl (7-17); Calcium 9.4 mg/dl (8.4-10.2); Carbon Dioxide 26 mmol/L (22-30); Chloride 103 mmol/L (98-107); Estimated Creatinine Clearance 25 ml/min; Glucose 184 mg/dl (70-99); Lipase 75 U/L (23-300); Potassium 4.4 mmol/L (3.5-5.1); Sodium 138 mmol/L (135-145); Total Bilirubin 0.7 mg/dl (0.2-1.3); Total Protein 6.8 g/dl (6.3-8.2); eGFR 18.75
[2023-05-06 14:03] VITALS: BP 83/56
[2023-05-06] MEDS: NSS 1000 IV (14:17)
[2023-05-06 14:18] VITALS: BP 101/81
[2023-05-06] MEDS: DILAUDID 0.5 MG IV (14:26)
[2023-05-06] MEDS: ZOFRAN 4 MG IV (14:26)
[2023-05-06 15:00] VITALS: BP 112/48
[2023-05-06] MEDS: MIRALAX 17 GRAMS PO (16:01)
[2023-05-06] MEDS: ROXICODONE 5 MG PO (17:50)
== END 2023-05-06 17:59 | disposition home or self-care (01) ==
LOC: EMR 13:11
PROVIDERS: Emergency Medicine; EMERGENCY PHYSICIAN Emergency Medicine; FAMILY PHYSICIAN Student in an Organized Health Care Education/Training Program
DX: R10.9 Unspecified abdominal pain (principal); R14.0 Abdominal distension (gaseous); R11.2 Nausea with vomiting, unspecified; K59.00 Constipation, unspecified; E11.22 Type 2 diabetes mellitus with diabetic chronic kidney disease; E11.40 Type 2 diabetes mellitus with diabetic neuropathy, unspecified; E11.36 Type 2 diabetes mellitus with diabetic cataract; I13.0 Hypertensive heart and chronic kidney disease with heart failure and stage 1 through stage 4 chronic kidney disease, or unspecified chronic kidney disease; I50.9 Heart failure, unspecified; I48.91 Unspecified atrial fibrillation; F41.9 Anxiety disorder, unspecified; F31.9 Bipolar disorder, unspecified; M54.9 Dorsalgia, unspecified; E78.00 Pure hypercholesterolemia, unspecified; I25.10 Atherosclerotic heart disease of native coronary artery without angina pectoris; H40.9 Unspecified glaucoma; D64.9 Anemia, unspecified; G89.29 Other chronic pain; Z95.5 Presence of coronary angioplasty implant and graft; Z79.4 Long term (current) use of insulin; Z87.440 Personal history of urinary (tract) infections; Z86.14 Personal history of Methicillin resistant Staphylococcus aureus infection; Z87.01 Personal history of pneumonia (recurrent); Z89.511 Acquired absence of right leg below knee
CPT/HCPCS: 99285; 96374; 96375; 96361; 74176; 80053; 83690; 85025; 93005

== ENCOUNTER 2023-05-08 21:22 | Emergency (ER) | payer MEDICARE, OTHER, SELFPAY ==
[2023-05-08 21:26] VITALS: BP 114/103
[2023-05-08 21:32] VITALS: BP 114/103
[2023-05-08 21:38] VITALS: BMI 35.3
--- NOTE | 2023-05-08 21:47 | ED.GENMED ---
History of Present Illness
General
Chief Complaint: Abdominal Pain
Source: patient
Travel History
Have you had any contact with someone who has COVID-19?: No
Do you have any symptoms of coronavirus? Fever > 100 degrees, chills, cough, shortness of breath, sore throat, loss of taste or smell, muscle aches, or headache?: No
Symptoms:: constipation
History of Present Illness
History of Present Illness:
This patient is a 68-year-old female presents emergency department from [facility] with complaints of abdominal pain and constipation. She states that the last time she had a bowel movement was 8 days ago although she says that staff told her
there was a small amount of stool in her diaper and she does not remember passing this. She denies numbness or tingling in the perianal perineal area. There is no report of blood in her stool or black stool. She describes persistent abdominal
discomfort mostly at the left upper quadrant but sometimes on the right upper quadrant area without exacerbating relieving factors. She has been taking constipation relieving medications without relief of symptoms. She says sometimes she feels
nauseous but she is still tolerating food and drink. She had a few episodes of vomiting earlier in the week. She denies fever, chills, chest pain, shortness of breath, urinary retention, dysuria, urgency, frequency, or other complaints. Shortly
prior to presentation tonight, patient reportedly asked her to disimpact her. He used the handle of the spoon to gently try to do so but says that there was 'nothing there' and he remove the splint.
Past History
Past History
ED Past Medical History: Arrthythmia (Atrial fibrillation), CAD, CHF, HTN, Hypercholesterolemia, IDDM, Psychiatric (Anxiety, bipolar disorder, Depression), Other (Peripheral Vascular disease, Cellulitis, MRSA, PNA, Cellulitis, UTI, Chronic back ain,
Diabetic neuropathy, PNA, Glaucoma, Anemia iron def, Herniated disc) and Other (Herniated disc)
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
Social History
Tobacco: Non-smoker (Secondhand smoke exposure)
Alcohol: None
Drug: None
Personal:
Living: snf ([facility])
Employment: Employed
Family History
Family History: Other (Father with [place], mother with diabetes, sister with diabetes)
Phy Exam
Physical Exam
Physical Exam:
GENERAL: Alert , in no apparent distress, making jokes with staff
EYE: pupils equal and reactive
NECK: Supple, no significant adenopathy.
ENT: o/p clr, mmm.
CARDIAC: Regular rate and rhythm .
LUNGS: Clear breath sounds bilaterally, no acute respiratory distress, no wheezes/rales/rhonchi
ABDOMEN: Soft, nonspecific mid abdominal tenderness, no r/g, normal active bowel sounds
NEUROLOGICAL: Alert and oriented, no focal neuro deficits
SKIN: Warm and dry, skin intact.
MUSCULOSKELETAL: No edema, well perfused. Left BKA noted
PSYCH: Normal and appropriate interaction.
RECTAL: RN's present, ext hemorrhoids noted, nontender exam, heme neg smear, no stool noted
Course
Orders/Labs/Results
Orders:
Orders
05/08/23 21:45
UA Reflex to Culture [Urinalysis Reflex To Culture] Stat
Date Specimen was Collected: 05/08/23
Time Specimen was Collected: 23:59
Obstruct Series W/PA Chest [CR Obstruct Series W/pa Chest] Urgent
Comment:
Reason For Exam: abd pain, constipation
05/08/23 23:16
BMP [Basic Metabolic Panel] Urgent
CBC/No Diff [Complete Blood Count/No Diff] Stat
05/09/23 00:12
Urine Microscopic Reflex Cult Stat
Abnormal Lab Results
05/08/23 05/09/23
23:16 00:12
RBC 3.43 L 10^6/uL
(4.20-5.40)
Hgb 9.5 L g/dL
(12.0-16.0)
Hct 29.0 L %
(37.0-47.0)
MCHC 32.8 L g/dL
(33.0-37.0)
RDW 15.6 H %
(11.5-14.5)
BUN 56 H mg/dl
(7-17)
Creatinine 2.4 H mg/dL
(0.6-1.0)
Glucose 189 H mg/dl
(70-99)
Ur Occult Blood Reflex 3+ A
(Negative)
Urine RBC 7-10 A /HPF
(0-2)
Urine Bacteria (Reflex) Few A
(Negative)
Urine Glucose 3+ A
(Negative)
05/08/23 23:16
05/08/23 23:16
Vital Signs
Initial and Last Documented VS:
Initial Vital Signs
Temp Pulse Resp BP Pulse Ox
98.6 F 69 9 114/103 95
05/08/23 21:26 05/08/23 21:26 05/08/23 21:26 05/08/23 21:26 05/08/23 21:26
Last Documented Vital Signs
Temp Pulse Resp BP Pulse Ox
98.6 F 71 13 137/57 99
05/08/23 21:26 05/08/23 22:00 05/08/23 22:00 05/08/23 22:00 05/09/23 00:15
*Critical Care Note
Total Time (30-74mins, 75-104mins- exclusive of procedures): Not Applicable
Update Note
Update Note:
Patient presents to the Emergency Department with __abdominal pain and suspected constipation
Number and Complexity of Problems Addressed at the Encounter
� Chronic conditions affecting care:
� Acute Exacerbation and/or Progression of Chronic Illness:
� Differential Diagnosis includes: But not limited to bowel obstruction, constipation, IBS perforation, etc.
Amount and/or Complexity of Data to be Reviewed and Analyzed
� I performed an independent evaluation of and my interpretation is:
EKG:
CT:
Xrays:read by me, nad, no obstruction, no fa
Laboratory Studies:
Other:u/a...not c/w uti, microscopic blood noted.
� Review of other/old records reveals: Patient was in the emergency department May 01 and diagnosed with a UTI placed on antibiotics, culture grew out low counts of Klebsiella sensitive to the antibiotic she was put on. She
returned May 06, had a CT scan at that time that showed mild hydro on the left, was clinically stable and was transferred back.
� Clinical information was obtained by an independent historian:
� Prescriptions/Medications Considered but not given:
� Further testing considered but not performed:
Risk of Complications and/or Morbidity or Mortality of Patient Management
� Social determinants of health affecting care:
� Discussion with other providers (PCP, Hospitalists, Consultants, etc):
� Escalation of care including admission/observation vs risk of discharge considered:104 am several reassessments, pt remains comfortable. At one point, she requested pain medication, weighing risk and benefits espec as relates
to constipation related s/e with opioids, we decided to avoid at this time, pt agreeable to this and in no distress. Aware of findings, especially no constipation noted, and imort of f/u. At this point, given 3 ED visits related to same sxs, would
recommend GI f/u.
ED Attending Note
-
Portions of this chart may have been created with voice recognition software.� Occasional wrong word or��sound alike� substitutions may have occurred due to the inherent limitations of voice recognition software.
Discharge Plan
Departure
Patient Disposition: Home (Routine Discharge)
Date of Disposition: 05/09/23
Time of Disposition: 01:06
Patient with high blood pressure during this ER visit?: Yes
Condition: Good
Discharge Problem:
Abdominal pain
Instructions: Abdominal Pain
Prescriptions:
No Action
Eliquis 5 MG tablet
5 mg PO BID
trazodone 50 MG tablet
75 mg PO HS
insulin aspart U-100 [Novolog FlexPen U-100 Insulin] 300 UNITS/3 ML insulin pen
0 - 12 sliding scale dose SC TID@0800,1200,1700
Rx Instructions:
Sliding Scale: if 71-150= 0; 151-200= 2; 201-250= 4; 251-300= 6; 301-350= 8; 351-400= 10; >400= 12
fluoxetine 40 mg Capsule
40 mg PO DAILY@1430
Rx Instructions:
taken w/ 10mg = 50mg
lamotrigine [Lamictal] 150 mg Tablet
150 mg PO QPM
atorvastatin 80 mg tablet
80 mg PO QPM
acetaminophen 325 mg Tablet
650 mg PO Q4H PRN (Reason: mild pain/fever >100.4)
lidocaine 4 % Adhesive Patch,Medicated
1 patch TOPICAL HS PRN (Reason: Pain)
Rx Instructions:
apply to left lateral shoulder
magnesium hydroxide [Milk of Magnesia] 400 mg/5 mL Suspension
30 ml PO HS PRN (Reason: constipation)
diclofenac sodium 1 % Gel
2 g TOPICAL BID@1000,1900
Rx Instructions:
apply to neck areas
Entresto 24-26 mg Tablet
1 tab PO BID
Levemir U-100 Insulin 1,000 UNITS/10 ML solution
20 units SC BID@0830,2029
latanoprost [Xalatan] 0.005 % Drops
1 drp BOTH EYES HS
bumetanide 2 mg Tablet
2 mg PO BID@0830,1430
loperamide [Imodium A-D] 2 mg Tablet
2 mg PO Q6H PRN (Reason: diarrhea)
bisacodyl 10 mg Suppository
10 mg VT DAILY PRN (Reason: no BM 3 days, if MOM ineffective)
pantoprazole [Protonix] 40 mg Tablet,Delayed Release (Dr/Ec)
40 mg PO DAILY@2029
ferrous sulfate [iron] 325 mg (65 mg iron) Tablet
325 mg PO MOWEFR
Fleet Enema 19-7 gram/118 mL Enema
118 ml VT DAILY PRN (Reason: no results from suppository/refuse suppository)
dorzolamide-timolol 22.3-6.8 mg/mL Drops
1 drp LEFT EYE BID@0835,1835
lorazepam [Ativan] 1 mg Tablet
1 mg PO BID
brimonidine [Alphagan P] 0.15 % Drops
1 drp LEFT EYE BID@0830,1830
Refresh Optive Advanced 0.5-1-0.5 % Drops
1 drp BOTH EYES DAILY PRN (Reason: glaucoma)
dapagliflozin propanediol [Farxiga] 10 mg Tablet
10 mg PO DAILY
insulin aspart U-100 [Novolog U-100 Insulin aspart] 100 unit/mL Solution
12 unit SC TID@0800,1200,1700
diphenhydramine HCl 25 mg Tablet
25 mg PO DAILY PRN (Reason: pruritus)
clobetasol 0.05 % Ointment
1 applic TOPICAL DAILY PRN (Reason: vaginal redness)
fluocinolone 0.01 % Solution
1 applic TOPICAL DAILY
Rx Instructions:
apply to excoriated areas on left parietal scalp and right posterior neck
levofloxacin 750 mg tablet
750 mg PO DAILY 7 Days Qty: 7 0RF
Rx Instructions:
through 05/08/2023
fluoxetine 10 mg Capsule
10 mg PO DAILY@1430
Rx Instructions:
taken w/ 40mg = 50mg
docusate sodium 100 mg Capsule
100 mg PO DAILY
ondansetron 4 mg tablet,disintegrating
4 mg PO Q6H PRN (Reason: nausea/vomiting)
Saccharomyces boulardii [Probiotic (S.boulardii)] 250 mg Capsule
250 mg PO BID@829,1829
oseltamivir 30 mg capsule
30 mg PO QPM
Rx Instructions:
daily x 10 days first date given 05/03/2023 prophylactically
Ricola 2 mg Lozenge
2 mg PO Q4H PRN (Reason: cough)
carvedilol 6.25 MG tablet
6.25 mg PO BID@829,1829
aspirin 81 mg tablet,chewable
81 mg PO QPM
Referrals:
Quinn Panda MD [Active] - Next open appointment
UNKNOWN - PT DOES,NOT KNOW [Family Provider] -
Activity Restrictions/Additional Instructions:
YOU HAVE SOME ABNORMALITIES NOTED ON YOUR URINE SAMPLE, AND ALSO CAT SCAN FROM EARLIER THIS MONTH THAT REQUIRE CLOSE FOLLOW UP. SEE ATTACHED. PLEASE SEE YOUR PRIMARY CARE DOCTOR PROMPTLY, AND ALSO MAKE ARRANGEMENTS FOR GI FOLLOW UP. IF YOU
DEVELOP FEVER, VOMITING, BLEEDING, INCREASING/NEW ABDOMINAL PAIN, CHEST PAIN, TROUBLE BREATHING, OR OTHER WORRISOME SIGNS, GO TO THE ER IMMEDIATELY!
Interventions
Interventions:
*Risk Screen - Suicide Last Done: 05/08/23 21:30
*General Assessment Last Done: 05/08/23 21:30
*Neglect/Abuse Screening Last Done: 05/08/23 21:30
ED- Fall Risk Assessment Last Done: 05/08/23 21:30
*ED COVID-19 Vaccine History Last Done: 05/08/23 21:29
*Nursing Disposition Last Done: 05/09/23 04:11
HM-Qeddip-Hstexxwdhy Assessment Last Done: 05/09/23 04:08
Discharge Date and Time
Discharge Date/Time: 05/09/23 04:11
[2023-05-08 22:00] VITALS: BP 137/57
[2023-05-08 23:28] LABS: Hemoglobin 9.5 g/dL (12.0-16.0); Mean Corp Hgb Conc. 32.8 g/dL (33.0-37.0); Mean Corpuscular Hgb 27.7 pg (27.0-31.0); Mean Corpuscular Volume 84.5 fL (81.0-99.0); Mean Platelet Volume 9.8 fL (7.4-10.4); Platelet Count 171 10^3/uL (130-400); Red Blood Cell Count 3.43 10^6/uL (4.20-5.40); Red Cell Dist. Width 15.6 % (11.5-14.5); White Blood Cell Count 8.2 10^3/uL (4.8-10.8)
[2023-05-08 23:49] LABS: Blood Urea Nitrogen 56 mg/dl (7-17); Calcium 8.6 mg/dl (8.4-10.2); Carbon Dioxide 26 mmol/L (22-30); Chloride 101 mmol/L (98-107); Estimated Creatinine Clearance 28 ml/min; Glucose 189 mg/dl (70-99); Potassium 3.5 mmol/L (3.5-5.1); Sodium 138 mmol/L (135-145)
[2023-05-09 00:19] LABS: Urine Albumin Trace (Neg - Trace); Urine Bilirubin Negative (Negative); Urine Character Clear (Clear); Urine Color Yellow; Urine Glucose 3+ (Negative); Urine Ketone Negative (Negative); Urine Leukocyte Negative (Negative); Urine Nitrite Negative (Negative); Urine Occult Blood 3+ (Negative); Urine Urobilinogen Negative (Neg - 1+)
[2023-05-09 00:34] LABS: Urine Squamous Cell 0-2 /LPF (Few)
[2023-05-09 00:36] LABS: Urine Bacteria Few (Negative)
--- NOTE | 2023-05-09 04:08 | EDRN ---
Pt incontinent urine. Perineal care provided, clean diaper placed. Pt able to log roll herself. Pt's cell phone and cell phone cord placed in zip lock bag which she is holding. Report to transport crew.
== END 2023-05-09 04:11 | disposition home or self-care (01) ==
LOC: EMR 21:22
PROVIDERS: EMERGENCY PHYSICIAN Emergency Medicine
DX: R10.9 Unspecified abdominal pain (principal); K59.00 Constipation, unspecified; I48.91 Unspecified atrial fibrillation; I25.10 Atherosclerotic heart disease of native coronary artery without angina pectoris; I11.0 Hypertensive heart disease with heart failure; I50.9 Heart failure, unspecified; E78.00 Pure hypercholesterolemia, unspecified; F41.9 Anxiety disorder, unspecified; F31.9 Bipolar disorder, unspecified; E11.40 Type 2 diabetes mellitus with diabetic neuropathy, unspecified; E11.51 Type 2 diabetes mellitus with diabetic peripheral angiopathy without gangrene; E11.36 Type 2 diabetes mellitus with diabetic cataract; H40.9 Unspecified glaucoma; Z77.22 Contact with and (suspected) exposure to environmental tobacco smoke (acute) (chronic); Z82.49 Family history of ischemic heart disease and other diseases of the circulatory system; Z83.3 Family history of diabetes mellitus; Z87.440 Personal history of urinary (tract) infections; Z89.511 Acquired absence of right leg below knee; Z95.5 Presence of coronary angioplasty implant and graft
CPT/HCPCS: 99283; 74022; 80048; 81003; 81015; 85027

== ENCOUNTER 2023-06-30 23:17 | Emergency (ER) | payer MEDICARE, OTHER, SELFPAY ==
[2023-06-30 23:19] VITALS: BP 161/68; BMI 37.2
[2023-06-30 23:21] VITALS: BP 161/68
[2023-06-30 23:43] LABS: % Basophils 0.8 % (0-2); % Eosinophils 3.8 % (0-6); % Immature Granulocytes 0.5 % (0-0.5); % Lymphocytes 30.4 % (20.5-51.1); % Neutrophils 55.5 % (42.2-75.2); Absolute Basophils 0.1 10^3/uL (0-0.2); Absolute Eosinophils 0.3 10^3/uL (0-0.7); Absolute Lymphocytes 2.7 10^3/uL (1.2-3.4); Absolute Monocytes 0.8 10^3/uL (0.1-0.6); Absolute Neutrophils 4.9 10^3/uL (1.4-6.5); Hematocrit 30.7 % (37.0-47.0); Hemoglobin 10.3 g/dL (12.0-16.0); Mean Corp Hgb Conc. 33.6 g/dL (33.0-37.0); Mean Corpuscular Hgb 28.2 pg (27.0-31.0); Mean Corpuscular Volume 84.1 fL (81.0-99.0); Mean Platelet Volume 10.5 fL (7.4-10.4); Nucleated Red Blood Cells % 0 %; Platelet Count 207 10^3/uL (130-400); Red Blood Cell Count 3.65 10^6/uL (4.20-5.40); Red Cell Dist. Width 15.4 % (11.5-14.5); White Blood Cell Count 8.8 10^3/uL (4.8-10.8)
[2023-06-30 23:59] LABS: ALT (SGPT) 13 U/L (0-35); AST (SGOT) 17 U/L (14-36); Albumin 4.2 g/dl (3.5-5.0); Alkaline Phosphatase 121 U/L (38-126); Blood Urea Nitrogen 56 mg/dl (7-17); Calcium 9.2 mg/dl (8.4-10.2); Carbon Dioxide 22 mmol/L (22-30); Chloride 103 mmol/L (98-107); Estimated Creatinine Clearance 38 ml/min; Glucose 241 mg/dl (70-99); Lipase 97 U/L (23-300); Potassium 4.2 mmol/L (3.5-5.1); Sodium 135 mmol/L (135-145); Total Bilirubin 0.4 mg/dl (0.2-1.3); Total Protein 7.1 g/dl (6.3-8.2); Urine Albumin Trace (Neg - Trace); Urine Bilirubin Negative (Negative); Urine Character Clear (Clear); Urine Color Yellow; Urine Glucose 3+ (Negative); Urine Ketone Negative (Negative); Urine Leukocyte 1+ (Negative); Urine Nitrite Negative (Negative); Urine Occult Blood Negative (Negative); Urine Specific Gravity 1.005 (<1.030); Urine Urobilinogen Negative (Neg - 1+)
[2023-07-01] VITALS (11 sets, daily range): BP systolic 101–156; BP diastolic 42–70
[2023-07-01 00:40] LABS: Urine Amorphous Seen; Urine Squamous Cell >30 /LPF (Few)
[2023-07-01 00:41] LABS: Urine Bacteria Few (Negative); Urine White Cell >100 /HPF (0-5)
--- NOTE | 2023-07-01 03:20 | EDRN ---
this RN received the pt from previous lieutenant shift supervisor RN, the pt is resting in stretcher in the lowest position, side rails up x2, call spencer within reach, HOB elevated, no s/s of distress, VS WNL, NSR in the 60's, no c/o chest pain, no c/o SOB, RA Sp02
98%, the pt c/o abdominal pain that is tender to touch with distension,the pt states to this RN that she has not had a BM x2 days, no c/o N/V/D, the pt stated to this RN, 'I want to go home, no one is doing anything for me here, no one has been in
to see me, i am uncomfortable', this RN assured the pt that the provider would come in to see her and speak with her, this RN offered the pt a warm blanker, will continue to monitor the pt closely
--- NOTE | 2023-07-01 03:24 | EDRN ---
this RN noted that the pt has a right BKA
--- NOTE | 2023-07-01 03:51 | EDRN ---
the pt was taken to xray, on the way to xray the pt stated to this RN, 'I really just should go home, my pain in my stomach is getting so much worse, i just need to go home', this RN explained to the pt that the pt is beginning to have testing done
now to figure out why the pt is having pain, the pt is agreeable to xray, provider notified, will continue to monitor the pt closely
--- NOTE | 2023-07-01 04:54 | EDRN ---
awaiting for provider to see the pt
--- NOTE | 2023-07-01 05:04 | EDRN ---
Dr. Cristina currently at the pts bedside speaking with the pt
[2023-07-01] MEDS: ZOFRAN 4 MG IV (05:08)
[2023-07-01] MEDS: MORPHINE SULFATE 4 MG IV (05:08)
--- NOTE | 2023-07-01 05:16 | ED.GENMED ---
History of Present Illness
General
Chief Complaint: Abdominal Pain
Source: patient
Exam Limitations: none
Time Seen by Provider: 07/01/23 03:48
Nursing documentation reviewed up to this point in time: agreed with
Travel History
Have you had any contact with someone who has COVID-19?: No
Do you have any symptoms of coronavirus? Fever > 100 degrees, chills, cough, shortness of breath, sore throat, loss of taste or smell, muscle aches, or headache?: No
History of Present Illness
History of Present Illness:
Pleasant 68-year-old female who presents from [facility] with abdominal distention and pain especially on the left side. She states that this pain began this morning. She states that she feels constipated and has not had a bowel movement for
the last 2 days. She reports no nausea, vomiting, or diarrhea. Denies any sick contacts.
Past History
Past History
ED Past Medical History: Arrthythmia (Atrial fibrillation), CAD, CHF, HTN, Hypercholesterolemia, IDDM, Psychiatric (Anxiety, bipolar disorder, Depression), Other (Peripheral Vascular disease, Cellulitis, MRSA, PNA, Cellulitis, UTI, Chronic back ain,
Diabetic neuropathy, PNA, Glaucoma, Anemia iron def, Herniated disc) and Other (Herniated disc)
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
Social History
Tobacco: Non-smoker (Secondhand smoke exposure)
Alcohol: None
Drug: None
Personal:
Living: fci ([facility])
Employment: Employed
Family History
Family History: Other (Father with NM, mother with diabetes, sister with diabetes)
Review of Systems
Review of Systems
Allergies reviewed?: Yes
Other source history: transfer record
All Other Systems: ROS reviewed and negative except as documented in HPI and ROS
Constitutional: Reports no symptoms
EENT: Reports no symptoms
Respiratory: Reports no symptoms
Cardiac: Reports no symptoms
ABD/GI: Reports abdominal pain
: Denies difficulty voiding
Musculoskeletal: Reports no symptoms
Skin: Reports no symptoms
Neurological: Reports no symptoms
Endocrine: Reports no symptoms
Hematologic/Lymphatic: Reports no symptoms
Psychiatric: Reports anxiety
Phy Exam
General Physical Exam
General Presentation: well appearing and no apparent distress
General Skin: warm and dry
General Habitus: normal
General Mental: alert
General Hydration: appears well hydrated
ENT Exam
ENT Exam: EOMI, pharynx normal, neck supple and normocephalic
Eye Exam
Eye Exam: PERRL, cornea clear and conjunctiva normal
Cardiovascular Exam
Cardiovascular Exam: regular rate/rhythm, no edema, no murmur and normal peripheral pulses
Pulmonary Exam
Pulmonary Exam: lungs clear, no respiratory distress, no rales, no crackles, no rhonchi, no stridor, no wheezing and no cough
Gastrointestinal Exam
Gastrointestinal Exam: normal bowel sounds and distended
Palpation: left lower quadrant: Moderate tenderness and generalized: Mild tenderness
Neurological Exam
Neurological Exam: alert, oriented x3, no motor deficits and speech normal
Musculoskeletal Exam
Musculoskeletal Exam: full ROM and no edema
Skin Exam
Skin Exam: normal color, warm/dry, no rash and no petechia
Psychiatric Exam
Psychiatric Exam: normal mood/affect
Course
Orders/Labs/Results
Orders:
Orders
06/30/23 23:25
Complete Blood Count/With Diff Urgent
Comprehensive Metabolic Panel Urgent
Lipase Urgent
Urinalysis Reflex To Culture Urgent
Date Specimen was Collected: 06/30/23
Time Specimen was Collected: 23:24
Urine Microscopic Reflex Cult Urgent
Urine Culture Urgent
KELSEY Source: U
Specimen Description:
Date Specimen was Collected: 06/30/23
Time Specimen was Collected: 23:24
07/01/23 03:22
Abdomen Xray - 1 View [CR Abdomen - 1 View] Urgent
Comment:
Reason For Exam: no BM x2 days
07/01/23 04:55
CT Abd/pel Without Iv Or Oral Urgent
Comment: changed per DR Cristina due labs
Reason For Exam: diffuse abd pain
07/01/23 05:04
Morphine Sulfate 4 mg IV NOW STA
Ondansetron Injectable [Zofran] 4 mg IV NOW STA
07/01/23 06:58
Fosfomycin [Monurol] 3 gm PO ONCE ONE
Abnormal Lab Results
06/30/23 07/01/23
23:25 08:45
RBC 3.65 L 10^6/uL
(4.20-5.40)
Hgb 10.3 L g/dL
(12.0-16.0)
Hct 30.7 L %
(37.0-47.0)
RDW 15.4 H %
(11.5-14.5)
MPV 10.5 H fL
(7.4-10.4)
Absolute Monos (auto) 0.8 H 10^3/uL
(0.1-0.6)
BUN 56 H mg/dl
(7-17)
Creatinine 1.8 H mg/dL
(0.6-1.0)
Glucose 241 H mg/dl
(70-99)
Leukocyte Esterase Rfl 1+ A
(Negative)
Urine RBC 3-6 A /HPF
(0-2)
Urine WBC (Reflex) >100 A /HPF
(0-5)
Urine Bacteria (Reflex) Few A
(Negative)
Urine Glucose 3+ A
(Negative)
POC Glucose 162 H mg/dl
(70-99)
06/30/23 23:25
06/30/23 23:25
Vital Signs
Initial and Last Documented VS:
Initial Vital Signs
Pulse Resp BP Pulse Ox
71 11 161/68 98
06/30/23 23:19 06/30/23 23:19 06/30/23 23:19 06/30/23 23:19
Last Documented Vital Signs
Temp Pulse Resp BP Pulse Ox
98.1 F 82 16 135/61 96
07/01/23 09:27 07/01/23 09:27 07/01/23 09:27 07/01/23 09:27 07/01/23 09:27
*Critical Care Note
Total Time (30-74mins, 75-104mins- exclusive of procedures): Not Applicable
Update Note
Update Note:
CT abdomen/pelvis without contrast
Comparison 05/06/2023
IMPRESSION:
-Findings appear similar to 05/06/2023. There is redemonstrated moderate left hydroureter and mild left hydronephrosis without nephroureterolithiasis. Suggestion of mild trabeculation of the urinary bladder wall is also similar to prior, without
associated perivesical stranding.
-Overall stool burden is mild. No evidence of stercoral inflammation or significant impaction.
Additional findings:
-The visualized lung bases are clear. Moderate to severe coronary artery calcification.
-Cholelithiasis in the gallbladder neck. The gallbladder is mildly distended although without pericholecystic inflammation or tensile appearance of the fundus. Incidental note of a right para-hepatic cyst, stable.
-Normal pancreas, spleen and adrenal glands.
-No hydronephrosis in the right kidney. Exophytic cyst at the upper pole of the right kidney.
-No small bowel obstruction or significant wall thickening. Normal appendix. No colitis or diverticulitis. No intraperitoneal free air or free fluid.
-Normal appearance of the reproductive organs.
-No abdominal aortic aneurysm or retroperitoneal hemorrhage. Mild atherosclerotic calcification.
-No acute osseous abnormality.
ED Attending Note
-
Portions of this chart may have been created with voice recognition software.� Occasional wrong word or��sound alike� substitutions may have occurred due to the inherent limitations of voice recognition software.
Discharge Plan
Departure
Patient Disposition: Residential/SNF
Date of Disposition: 07/01/23
Time of Disposition: 06:57
Discharge Problem:
Abdominal pain
Instructions: Abdominal Pain
Prescriptions:
No Action
Eliquis 5 MG tablet
5 mg PO Q12H
trazodone 50 MG tablet
75 mg PO HS
insulin aspart U-100 [Novolog FlexPen U-100 Insulin] 300 UNITS/3 ML insulin pen
0 - 12 sliding scale dose SC TID@0800,1200,1700
Rx Instructions:
Sliding Scale: if 71-150= 0; 151-200= 2; 201-250= 4; 251-300= 6; 301-350= 8; 351-400= 10; >400= 12
fluoxetine 40 mg Capsule
40 mg PO DAILY@1430
Patient Comments:
06/30/2023: taken w/ 10mg = 50mg
lamotrigine [Lamictal] 150 mg Tablet
150 mg PO QPM
atorvastatin 80 mg tablet
80 mg PO QPM
acetaminophen 325 mg Tablet
650 mg PO Q4H PRN (Reason: mild pain/fever >100.4)
lidocaine 4 % Adhesive Patch,Medicated
1 patch TOPICAL HS PRN (Reason: Pain)
Rx Instructions:
apply to left lateral shoulder
diclofenac sodium 1 % Gel
2 g TOPICAL BID@1000,1900
Patient Comments:
06/30/2023: apply to neck areas
Entresto 24-26 mg Tablet
1 tab PO BID
latanoprost [Xalatan] 0.005 % Drops
1 drp BOTH EYES HS
bumetanide 2 mg Tablet
2 mg PO BID@0830,1430
loperamide [Imodium A-D] 2 mg Tablet
2 mg PO Q6H PRN (Reason: diarrhea)
bisacodyl 10 mg Suppository
10 mg IL DAILY PRN (Reason: no BM 3 days, if MOM ineffective)
pantoprazole [Protonix] 40 mg Tablet,Delayed Release (Dr/Ec)
40 mg PO DAILY@2029
ferrous sulfate [iron] 325 mg (65 mg iron) Tablet
325 mg PO MOWEFR
Fleet Enema 19-7 gram/118 mL Enema
118 ml IL DAILY PRN (Reason: no results from suppository/refuse suppository)
dorzolamide-timolol 22.3-6.8 mg/mL Drops
1 drp LEFT EYE BID@0835,1835
lorazepam [Ativan] 1 mg Tablet
1 mg PO BID
brimonidine [Alphagan P] 0.15 % Drops
1 drp LEFT EYE BID@0830,1830
insulin aspart U-100 [Novolog U-100 Insulin aspart] 100 unit/mL Solution
12 unit SC TID@0800,1200,1700
fluocinolone 0.01 % Solution
1 applic TOPICAL DAILY
Patient Comments:
06/30/2023: apply to excoriated areas on left parietal scalp and right posterior neck
fluoxetine 10 mg Capsule
10 mg PO DAILY@1430
Patient Comments:
06/30/2023: taken w/ 40mg = 50mg
ondansetron 4 mg tablet,disintegrating
4 mg PO Q6H PRN (Reason: nausea/vomiting)
carvedilol 6.25 MG tablet
6.25 mg PO BID@0830,1830
aspirin 81 mg tablet,chewable
81 mg PO QPM
polyethylene glycol 3350 [Miralax] 17 gram Powder In Packet
17 g PO Q48H
dextromethorphan-guaifenesin [Diabetic Tussin DM] 10-100 mg/5 mL Liquid
10 ml PO Q6H PRN (Reason: cough)
aripiprazole [Abilify] 5 mg Tablet
5 mg PO DAILY@2029
insulin glargine [Lantus Solostar U-100 Insulin] 100 unit/mL (3 mL) Insulin Pen
20 unit SC BID@0830,183
Jardiance 25 mg Tablet
25 mg PO DAILY
Referrals:
Paulo Loera DO [Family Provider] -
Interventions
Interventions:
*Risk Screen - Suicide Last Done: 06/30/23 23:23
*General Assessment Last Done: 06/30/23 23:23
*Neglect/Abuse Screening Last Done: 06/30/23 23:23
ED- Fall Risk Assessment Last Done: 07/01/23 03:24
*ED COVID-19 Vaccine History Last Done: 06/30/23 23:23
*Nursing Disposition Last Done: 07/01/23 09:27
MC-Drxret-Makzjvlaqr Assessment Last Done: 07/01/23 03:24
Discharge Date and Time
Discharge Date/Time: 07/01/23 09:30
Print Language: TAMAZIGHT
--- NOTE | 2023-07-01 05:55 | EDRN ---
this RN noticed that the pts Sp02 dipped to 86%, this RN placed the pt on 2L NC and Sp02 came up to 96%, no s/s of distress, no c/o chest pain, no c/o SOB, will continue to monitor the pt closely
[2023-07-01] MEDS: MONUROL 3 GM PO (07:14)
--- NOTE | 2023-07-01 07:38 | EDRN ---
this RN called [facility] at [phone] to give verbal report and to notify staff there that the pt was going to be sent back
--- NOTE | 2023-07-01 08:06 | EDRN ---
the pt is resting in stretcher in the lowest position, side rails up x2, call spencer within reach, HOB elevated, no s/s of distress, VS WNL, no c/o pain, no c/o SOB, this RN removed 2L NC and Sp02 maintained at 94%, will continue to monitor the pt
closely
--- NOTE | 2023-07-01 08:33 | EDRN ---
Rm GALAVIZ currently at the pts bedside speaking with the pt, this RN called crisis for an update and the pts neighbor 302'd the pt, awaiting for psychiatric assessment
--- NOTE | 2023-07-01 08:40 | EDRN ---
this RN entered the pts room to check on the pt and the pt is sleeping in stretcher in the lowest position, side rails up x2, call spencer within reach, HOB elevated, no s/s of distress, this RN asked the pt if she needed her brief changed and to be
cleaned up and the pt stated to this RN, 'No thank you, i don't think i have peed or anything, i feel pretty dry', this RN noticed that the pt is diabetic and a blood sugar will be checked, will continue to monitor the pt closely
[2023-07-01 08:46] LABS: Glucose - Point of Care 162 mg/dl (70-99)
--- NOTE | 2023-07-01 09:23 | EDRN ---
this RN entered the pts room to check on the pt and this RN asked the pt if she needed to be changed and the pt stated that she did, this RN and Lona PCT cleaned the pt up and changed the pts brief, gown, and linens, this RN gave verbal report to
Acute Care Transport who are at ER to take the pt back to [facility], the pts belongings have been gathered and placed in a bag and given to the pt
== END 2023-07-01 09:30 ==
LOC: EMR 23:17
PROVIDERS: EMERGENCY PHYSICIAN Student in an Organized Health Care Education/Training Program; FAMILY PHYSICIAN Student in an Organized Health Care Education/Training Program
DX: R10.9 Unspecified abdominal pain (principal); R14.0 Abdominal distension (gaseous); K80.20 Calculus of gallbladder without cholecystitis without obstruction; I25.10 Atherosclerotic heart disease of native coronary artery without angina pectoris; F41.9 Anxiety disorder, unspecified; K76.89 Other specified diseases of liver; Z77.22 Contact with and (suspected) exposure to environmental tobacco smoke (acute) (chronic)
CPT/HCPCS: 99285; 96374; 96375; 74018; 74176; 80053; 81003; 81015; 82962; 83690; 85025; 87077; 87086; 87186

== ENCOUNTER → 2023-07-14 12:27 | Outpatient (REF) | payer MEDICARE, OTHER, SELFPAY ==
[2023-07-14 13:03] LABS: % Basophils 0.5 % (0-2); % Eosinophils 4.1 % (0-6); % Immature Granulocytes 0.3 % (0-0.5); % Lymphocytes 32.3 % (20.5-51.1); % Monocytes 14.3 % (1.7-9.3); % Neutrophils 48.5 % (42.2-75.2); Absolute Eosinophils 0.3 10^3/uL (0-0.7); Absolute Lymphocytes 2.4 10^3/uL (1.2-3.4); Absolute Monocytes 1.1 10^3/uL (0.1-0.6); Absolute Neutrophils 3.6 10^3/uL (1.4-6.5); Hematocrit 32.4 % (37.0-47.0); Hemoglobin 10.3 g/dL (12.0-16.0); Mean Corp Hgb Conc. 31.8 g/dL (33.0-37.0); Mean Corpuscular Hgb 27.8 pg (27.0-31.0); Mean Corpuscular Volume 87.3 fL (81.0-99.0); Mean Platelet Volume 11.2 fL (7.4-10.4); Nucleated Red Blood Cells % 0 %; Platelet Count 194 10^3/uL (130-400); Red Blood Cell Count 3.71 10^6/uL (4.20-5.40); Red Cell Dist. Width 15.6 % (11.5-14.5); White Blood Cell Count 7.4 10^3/uL (4.8-10.8)
[2023-07-14 13:56] LABS: Glycohemoglobin (HgbA1c) 7.6 % (4.0-5.6)
[2023-07-14 14:11] LABS: ALT (SGPT) 11 U/L (0-35); AST (SGOT) 16 U/L (14-36); Albumin 4.2 g/dl (3.5-5.0); Alkaline Phosphatase 130 U/L (38-126); Blood Urea Nitrogen 60 mg/dl (7-17); Calcium 9.2 mg/dl (8.4-10.2); Carbon Dioxide 23 mmol/L (22-30); Chloride 103 mmol/L (98-107); Glucose 246 mg/dl (70-99); HDL Cholesterol 41 mg/dl; LDL Cholesterol, Calculated 72 mg/dl; Magnesium 2.4 mg/dl (1.6-2.3); Potassium 3.7 mmol/L (3.5-5.1); Sodium 137 mmol/L (135-145); Total Bilirubin 0.5 mg/dl (0.2-1.3); Total Cholesterol 147 mg/dl (50-199); Total Protein 6.8 g/dl (6.3-8.2); Triglyceride 171 mg/dl (10-149); Very Low Density Lipoprotein 34 mg/dl (0-30); eGFR 28.58
== END ==
LOC: OLABN 12:27
PROVIDERS: ATTENDING PHYSICIAN Student in an Organized Health Care Education/Training Program
DX: N18.32 Chronic kidney disease, stage 3b (principal)
CPT/HCPCS: 36415; 80053; 80061; 83036; 83735; 85025

== ENCOUNTER 2023-09-01 07:37 | Outpatient (RCR) | payer MEDICARE, OTHER, SELFPAY ==
[2023-09-01 08:00] VITALS: BP 141/67
[2023-09-01] MEDS: SODIUM BICARBONATE 1150 MEQ IV (08:50)
== END 2023-09-18 23:59 | disposition home or self-care (01) ==
LOC: OID 07:37
PROVIDERS: ATTENDING PHYSICIAN Surgery Vascular Surgery; FAMILY PHYSICIAN Student in an Organized Health Care Education/Training Program
DX: I73.9 Peripheral vascular disease, unspecified (principal); Z98.890 Other specified postprocedural states
CPT/HCPCS: 96360; 96361

== ENCOUNTER → 2023-09-01 08:56 | Outpatient (REF) | payer MEDICARE, OTHER, SELFPAY | LOC: RAD 08:56 | PROVIDERS: ATTENDING PHYSICIAN Surgery Vascular Surgery; FAMILY PHYSICIAN Student in an Organized Health Care Education/Training Program | DX: I73.9 Peripheral vascular disease, unspecified (principal) | CPT/HCPCS: 75635; Q9967 ==

== ENCOUNTER 2023-10-13 10:36 | Day surgery (SDC) | payer MEDICARE, OTHER, SELFPAY ==
[2023-10-13] VITALS (20 sets, daily range): BP systolic 87–145; BP diastolic 32–83; BMI 37.8
[2023-10-13 11:14] LABS: Hematocrit 35.6 % (37.0-47.0); Hemoglobin 11.5 g/dL (12.0-16.0); Mean Corp Hgb Conc. 32.3 g/dL (33.0-37.0); Mean Corpuscular Hgb 28.2 pg (27.0-31.0); Mean Corpuscular Volume 87.3 fL (81.0-99.0); Mean Platelet Volume 9.8 fL (7.4-10.4); Platelet Count 210 10^3/uL (130-400); Red Blood Cell Count 4.08 10^6/uL (4.20-5.40); Red Cell Dist. Width 15.9 % (11.5-14.5); White Blood Cell Count 11.4 10^3/uL (4.8-10.8)
[2023-10-13 11:21] LABS: Blood Urea Nitrogen 72 mg/dl (7-17); Carbon Dioxide 29 mmol/L (22-30); Chloride 105 mmol/L (98-107); Glucose 125 mg/dl (70-99); Potassium 5.2 mmol/L (3.5-5.1); Sodium 139 mmol/L (135-145); eGFR 23.97
[2023-10-13 11:34] LABS: APTT 29.5 Sec (23.4-35.0); INR 1.16; PT 14.9 Sec (11.4-14.6)
[2023-10-13 11:39] LABS: Glucose - Point of Care 111 mg/dl (70-99)
[2023-10-13] MEDS: NSS 319 ML IV (12:12)
[2023-10-13] MEDS: VANCOCIN 300 MG IV (12:38)
[2023-10-13] MEDS: VANCOCIN 300 ML IV (12:38)
--- NOTE | 2023-10-13 12:57 | PTCARENOTE ---
Patient's labs from today include K+ 5.2, BUN 72, & Creat 2.2. SKYLER Bran & Dr. Velázquez aware. Patient received NSS 3ml/kg IV over 30 minutes for a total of 319ml as ordered. No other treatment ordered at this time. Vancomycin dose adjusted
by Pharmacist to 1500mg IV. SKYLER Bran aware. Adjusted dose of IV Vancomycin given. See MAY.
--- NOTE | 2023-10-13 14:13 | W.SUR.PREOP ---
Pre-Operative Surgical Note
-
I have examined this patient prior to the performance of the scheduled procedure.
The patient's condition is unchanged from the time of the current History and
Physical and the patient is able to undergo the scheduled procedure.
--- NOTE | 2023-10-13 15:25 | W.SUR.POST ---
Surgical Immediate Post Op
Note
Pre Op Diagnosis: PAD
Post Op Diagnosis: PAD
Procedure Performed: LLE angiogram, left SFA balloon angioplasty to in-stent restenosis
Primary Surgeon: Eber
Anesthesia: local and sedation
Estimated Blood Loss: <2cc
Fluids: see anesthesia flow sheet
Drains/Shunts: none
Specimens/Cultures: none
Doppler/Duplex/Angio (Y/N): Y
Complications: none
Operative Findings: successful balloon angioplasty
--- NOTE | 2023-10-13 15:37 | OR.RPT ---
Operative Report
Operative Report
PROCEDURE DATE: 10/13/2023
Preoperative diagnosis:
1. Ischemic rest pain left lower extremity.
2. History of left lower extremity SFA stents.
Postoperative diagnosis: Same
Procedure:
1. Duplex assisted right common femoral artery cannulation.
2. Aortogram and pelvic angiogram.
3. Left lower extremity arteriogram with third order vessel catheterization of left popliteal artery via right common femoral artery puncture.
4. Balloon angioplasty of distal superficial femoral artery in-stent restenosis with 5 mm x 80 mm Bard Lutonix drug-coated balloon.
5. Balloon angioplasty of the proximal superficial femoral artery stent edge stenosis with 5 mm angioplasty balloon.
6. Right femoral angiogram.
7. Supervision and interpretation.
Surgeon: Eber
Structural Engineering Project Manager: None
Complications: None
Anesthesia: Local, sedation
Fluoroscopy:
9.1 min
151 mGy
35.27 Gy.cm2
Indications for procedure:
Patient with history of extensive peripheral arterial disease bilaterally. Prior left SFA extensive stents. Ultrasound and CT scan demonstrated in-stent restenosis. Patient reported symptoms of significant calf and foot pain and description of it
was suggestive of ischemic rest pain. Risk/benefits/alternatives of revascularization were also discussed. Patient understood all wish to proceed.
Description of procedure:
Patient was identified, brought to the operating room. Placed on the table in the supine position. After the adequate administration of anesthesia, the patient was prepped and draped in the standard surgical fashion. A standard preoperative
timeout was undertaken and everybody was in agreement with the plan.
The right common femoral artery was accessed with a micropuncture kit under direct duplex ultrasound guidance. A 5 [place] sheath was then advanced over a 0.035 inch wire, and a stuart's hook catheter was advanced into the abdominal aorta. Note
the process of access in the groin was actually challenging due to the scarred groin. I had to dilate the tract over the 0.014 inch wire with the dilator/introducer from the micropuncture sheath initially. Next I was able to place the
micropuncture sheath. Then I exchanged for a stiff Amplatz wire. Then I used the dilator from the 5 [place] sheath to dilate this tract. Then I exchanged for a 5 [place] sheath.
Aortogram and pelvic angiogram was obtained. Findings as follows:
Distal infrarenal aorta and bilateral common and external iliac arteries were patent with no significant stenosis.
Using a floppy angled hydrophilic wire, the left common femoral artery was cannulated and the catheter was advanced. Left lower extremity arteriogram was obtained. Findings as follows:
Common femoral artery: Patent with no significant stenosis.
Profunda femoris artery: Patent proximally and then branches filled, on delayed imaging mid profunda could be seen again as the main profunda had occluded (this was all seen on CT scan). However the distal profunda (main profunda) occluded again.
Superficial femoral artery: Moderate stenosis at the edge of the more proximal stent in the proximal superficial femoral artery. Stents through the mid segment of the SFA patent. Distal SFA stents with significant in-stent restenosis over the
course of approximately 6 to 8 cm.
Popliteal artery: Patent with luminal irregularities, diffusely slightly small and areas of mild to moderate stenosis below the knee but did not appear flow-limiting.
Anterior tibial artery: Patent, dominant runoff vessel to the foot. Mild to moderate stenosis in the proximal third but not severe and does not appear flow-limiting. Distally the anterior tibial artery ran to the ankle. At the ankle, however, it
essentially occluded. Collateralization was seen into the foot but that named dorsalis pedis artery was not seen. Only collaterals appeared to fill the foot.
Tibial peroneal trunk: Patent with severe string-like stenosis.
Peroneal artery: Patent for about 2 cm and then occluded.
Posterior tibial artery: Chronically occluded.
At this point I selectively cannulated the superficial femoral artery and then exchanged for an up and over 5 [place] sheath over a Storq wire. The patient was given 8000 units of intravenous heparin. The Storq wire was getting held up on the area
of severe stenosis in the distal SFA. I therefore then used a flap angled hydrophilic wire and a CXI catheter was able to traverse the area of stenosis. Advanced the catheter over the wire. I then exchanged for a [employer] wire. I then performed
balloon angioplasty with a drug-coated Bard Lutonix 5 mm x 80 mm balloon with prolonged 2-minute inflation. I then withdrew this balloon to the proximal superficial femoral artery to balloon the moderate edge stenosis in the proximal stent with the
same 5 mm balloon. Completion angiogram now demonstrated excellent result with no residual stenosis in the prior stenotic areas. Runoff flow was preserved. At this point I was satisfied. I felt that the distal CR occlusion and no named vessels
in the foot was a rate limiting problem but unfortunately no further endovascular solution to render. Therefore at this point the sheath was withdrawn to the left external iliac artery. Angiogram demonstrated good puncture in the left common
femoral artery. There is significant disease/occlusion of the SFA. At this point the wires and catheters were withdrawn. The sheath was withdrawn and manual pressure was applied after protamine was given to reverse the heparin. Hemostasis was
fully achieved. The patient tolerated procedure well. Upon completion she had a weakly palpable distal CR pulse and a good Doppler signal at the CR confirming.
The patient tolerated procedure well.
[2023-10-13 15:45] LABS: Glucose - Point of Care 100 mg/dl (70-99)
[2023-10-13] MEDS: NSS 1000 IV (15:59)
[2023-10-13] MEDS: DILAUDID 0.25 MG IV (16:11)
[2023-10-13 18:10] LABS: Glucose - Point of Care 150 mg/dl (70-99)
[2023-10-13] MEDS: NOVOLOG FLEXPEN-HIGH RESISTANCE 2 UNITS SC (18:12)
[2023-10-13] MEDS: HEPARIN 5000 UNITS SC ×2 (18:13→22:57)
[2023-10-13] MEDS: ASPIR LOW (ENTERIC COATED) 81 MG PO (18:15)
[2023-10-13] MEDS: LIPITOR 80 MG PO (18:15)
[2023-10-13] MEDS: COREG 6.25 MG PO (18:15)
[2023-10-13] MEDS: BUMEX 1 MG PO (18:44)
[2023-10-13] MEDS: LAMICTAL 150 MG PO (18:44)
[2023-10-13] MEDS: ZOFRAN ODT (ORALLY DISINTEGRATING) PO (18:45)
[2023-10-13] MEDS: LANTUS 0.2 UNITS SC (18:45)
--- NOTE | 2023-10-13 20:00 | PTCARENOTE ---
Received pt at handoff. AOX3. Tele- afib. Radha rudolph is c/d/i. Assessment completed as documented. Pt currently offers no c/o at this time. Pt is currently on bedrest and understands her activity restrictions. Pt is currently in bed; call johanna w/in
reach.
[2023-10-13] MEDS: ENTRESTO 24 MG/26 MG 1 TAB PO (20:07)
[2023-10-13] MEDS: ALPHAGAN P 0.15% EYE DROPS 1 DROP LEFT EYE (20:08)
[2023-10-13] MEDS: COSOPT EYE DROPS 1 DROP LEFT EYE (20:08)
[2023-10-13] MEDS: TYLENOL 650 MG PO (21:08)
[2023-10-13] MEDS: MIRAPEX 0.125 MG PO (22:10)
[2023-10-13] MEDS: NEURONTIN 300 MG PO (22:10)
[2023-10-13] MEDS: DESYREL 75 MG PO (22:11)
[2023-10-13] MEDS: ZYRTEC 10 MG PO (22:11)
[2023-10-13] MEDS: ABILIFY 5 MG PO (22:11)
[2023-10-13] MEDS: XALATAN OPHTHALMIC SOLUTION 1 DROP BOTH EYES (22:20)
[2023-10-14 00:48] LABS: Glucose - Point of Care 343 mg/dl (70-99)
[2023-10-14] MEDS: ROXICODONE 5 MG PO (01:05)
[2023-10-14 03:37] VITALS: BP 145/56
[2023-10-14] MEDS: TYLENOL 650 MG PO (03:55)
[2023-10-14 04:27] LABS: Blood Urea Nitrogen 62 mg/dl (7-17); Calcium 8.8 mg/dl (8.4-10.2); Carbon Dioxide 20 mmol/L (22-30); Chloride 108 mmol/L (98-107); Estimated Creatinine Clearance 40 ml/min; Glucose 282 mg/dl (70-99); Potassium 4.8 mmol/L (3.5-5.1); Sodium 138 mmol/L (135-145); eGFR 32.66
[2023-10-14 07:32] VITALS: BP 153/73
[2023-10-14] MEDS: ZOFRAN ODT (ORALLY DISINTEGRATING) 4 MG PO (07:47)
[2023-10-14 08:15] LABS: Glucose - Point of Care 200 mg/dl (70-99)
--- NOTE | 2023-10-14 08:39 | W.PN.VS ---
Addendum entered and electronically signed by Ravi Hudson III, MD 10/14/23 14:37:
This patient was seen and examined with SKYLER Bran. I agree with the history and physical exam as well as the assessment and plan. I have the following additions:
Signed:
Ravi Hudson III, MD
[facility] Vascular Surgery
[phone] ([phone])
Original Note:
Today's Communication / Plan
-
Discussed with Dr. Hudson
Assessment/Plan
-
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
Plan:
-Okay for DC from vascular standpoint once transport arranged
Subjective Data
-
Date of Service: October 14, 2023
Patient seen at bedside this a.m. patient complains of bilateral leg discomfort similar to her complaints presurgery. Extremities are warm to the touch and present Doppler signals
Objective Data
-
Vital Signs
Temp Pulse Resp BP Pulse Ox
97.7 F 67 18 145/56 98
10/14/23 07:31 10/14/23 04:00 10/14/23 07:31 10/14/23 03:37 10/14/23 07:31
Intake and Output
10/13/23 10/14/23 10/15/23
06:59 06:59 06:59
Intake Total 1500 / 1500
Output Total 1650 / 1650 200 / 200
Balance -150 / -150 -200 / -200
Intake:
Oral fluids 480 / 480
IV fluids (Total) 1020 / 1020
NSS 720 / 720
Output:
Urine, Voided 1650 / 1650 200 / 200
Lab Results
10/13/23 10:52
10/14/23 03:51
Calcium 8.8 mg/dl (8.4-10.2) 10/14/23 03:51
Physical Exam
-
AAOx3
No tachypnea
No tachycardia
Abdomen soft, obese
Right groin site clean dry and intact, soft, no hematoma or drainage
Left lower extremity warm
Present Doppler DP signal
[2023-10-14] MEDS: BUMEX 1 MG PO (08:57)
[2023-10-14] MEDS: PROTONIX 40 MG PO (08:58)
[2023-10-14] MEDS: ENTRESTO 24 MG/26 MG 1 TAB PO (08:58)
[2023-10-14] MEDS: LANTUS 0.2 UNITS SC (08:58)
[2023-10-14] MEDS: COREG 6.25 MG PO (08:58)
[2023-10-14] MEDS: NOVOLOG FLEXPEN-HIGH RESISTANCE 4 UNITS SC (08:59)
[2023-10-14] MEDS: HEPARIN 5000 UNITS SC (08:59)
[2023-10-14] MEDS: COSOPT EYE DROPS 1 DROP LEFT EYE (09:07)
--- NOTE | 2023-10-14 09:07 | W.DS.TRANS ---
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
-
Discharge Instructions:
Sleep Apnea Risk High
Discharge Diagnosis/Procedures LLE angiogram, PT balloon angioplasty
Diet As tolerated
Activity No strenuous activity
Driving Restrictions As prior to admission
Bathing Restrictions OK to Shower
Others Tests Ultrasound: 11/17 @ 3pm
Instructions:
Stand-Alone Forms: DC Instr - Vascular OR
Changes to Home Medications: No
Discharge Medications:
DC Medications w/original date entered in [employer]
trazodone 50 mg tablet 75 mg PO HS insomnia 02/01/20
insulin aspart U-100 100 unit/mL (3 mL) subcutaneous pen (Novolog FlexPen U-100 Insulin aspart) 0 - 12 sliding scale dose SC TID@0800,1200,1700 Diabetes Mellitus 10/24/20
acetaminophen 325 mg tablet 650 mg PO Q4H PRN mild pain/fever >100.4 11/02/21
atorvastatin 80 mg tablet 80 mg PO QPM Hyperlipidemia 11/02/21
diclofenac sodium 1 % topical gel 2 g topical BID@1000,1900 Pain 11/02/21
fluoxetine 40 mg capsule 40 mg PO DAILY@1430 Depression 11/02/21
lamotrigine 150 mg tablet (Lamictal) 150 mg PO QPM Anxiety 11/02/21
lidocaine 4 % topical patch 1 patch topical DAILYPRN PRN PAIN 11/02/21
bisacodyl 10 mg rectal suppository 10 mg [place] DAILY PRN no BM 3 days, if MOM and/or lactulose ineffective 08/13/22
ferrous sulfate 325 mg (65 mg iron) tablet (iron) 325 mg PO MOWEFR Iron Deficiency 08/13/22
latanoprost 0.005 % eye drops (Xalatan) 1 drp BOTH EYES HS Glaucoma 08/13/22
loperamide 2 mg tablet (Imodium A-D) 2 mg PO Q6H PRN diarrhea 08/13/22
lorazepam 1 mg tablet (Ativan) 1 mg PO BID Mental Health/Anxiety 08/13/22
pantoprazole 40 mg tablet,delayed release (Protonix) 40 mg PO DAILY Gastrointestinal Issue 08/13/22
sodium phosphates 19 gram-7 gram/118 mL enema (Fleet Enema) 118 ml VA DAILY PRN no results from suppository/refuse suppository 08/13/22
insulin aspart U-100 100 unit/mL subcutaneous solution (Novolog U-100 Insulin aspart) 12 unit SC TID@0800,1200,1700 Diabetes Mellitus 10/18/22
carvedilol 6.25 mg tablet 6.25 mg PO BID@0830,1830 Heart Failure 05/06/23
fluoxetine 10 mg capsule 10 mg PO DAILY@1430 Depression 05/06/23
ondansetron 4 mg disintegrating tablet 4 mg PO Q6H PRN nausea/vomiting 05/06/23
aripiprazole 5 mg tablet (Abilify) 5 mg PO HS Bipolar Mood Disorder 06/30/23
empagliflozin 25 mg tablet (Jardiance) 25 mg PO DAILY DM 06/30/23
insulin glargine 100 unit/mL (3 mL) subcutaneous pen (Lantus Solostar U-100 Insulin) 20 unit SC BID@0830,1830 DM 06/30/23
polyethylene glycol 3350 17 gram oral powder packet (Miralax) 17 g PO Q48H Constipation 06/30/23
cetirizine 10 mg capsule 10 mg PO HS ITCHING 09/01/23
gabapentin 300 mg capsule 300 mg PO HS neuropathy 09/01/23
oxycodone 5 mg capsule 5 mg PO Q8H PRN Acute pain 09/01/23
apixaban 5 mg tablet 5 mg PO BID Atrial Fibrillation 10/10/23
bumetanide 1 mg tablet 1 mg PO BID Heart Failure 10/10/23
pramipexole 0.125 mg tablet 0.125 mg PO HS RESTLESS LEG SYNDROME 10/10/23
aspirin 81 mg tablet,delayed release 81 mg PO QPM 10/13/23
brimonidine 0.15 % eye drops 1 drp LEFT EYE Q12H 10/13/23
dorzolamide-timolol 1 drp LEFT EYE BID 10/13/23
fluocinolone 1 applic topical DAILY 10/13/23
sacubitril 24 mg-valsartan 26 mg tablet (Entresto) 1 tab PO BID 10/13/23
Home Medication Changes
Pending Results: No
[2023-10-14] MEDS: ALPHAGAN P 0.15% EYE DROPS 1 DROP LEFT EYE (09:08)
--- NOTE | 2023-10-14 11:16 | PTCARENOTE ---
Pt's purewick removed, leaking. Pt sitting at edge of bed. R groin dsg remains D+I. Pt c/o nausea and pain in L leg this morning. Med with Zofran 4 mg PO with relief. Pt then declined need for pain med after sitting at side of bed, she felt better
and leg pain went away on it's own.
[2023-10-14 11:36] VITALS: BP 149/69
[2023-10-14 11:44] LABS: Glucose - Point of Care 322 mg/dl (70-99)
[2023-10-14] MEDS: NOVOLOG FLEXPEN-HIGH RESISTANCE 10 UNITS SC (12:45)
== END 2023-10-14 14:45 | disposition home or self-care (01) ==
LOC: CATH 10:36
PROVIDERS: Nurse Practitioner Acute Care; ATTENDING PHYSICIAN Surgery Vascular Surgery; FAMILY PHYSICIAN Student in an Organized Health Care Education/Training Program
DX: I70.222 Atherosclerosis of native arteries of extremities with rest pain, left leg (principal); Z77.22 Contact with and (suspected) exposure to environmental tobacco smoke (acute) (chronic); Z89.511 Acquired absence of right leg below knee; I25.10 Atherosclerotic heart disease of native coronary artery without angina pectoris; E11.319 Type 2 diabetes mellitus with unspecified diabetic retinopathy without macular edema; E11.42 Type 2 diabetes mellitus with diabetic polyneuropathy; Z79.4 Long term (current) use of insulin; Z79.84 Long term (current) use of oral hypoglycemic drugs; Z79.82 Long term (current) use of aspirin; Z79.899 Other long term (current) drug therapy; Z79.01 Long term (current) use of anticoagulants; Z79.891 Long term (current) use of opiate analgesic; Z86.14 Personal history of Methicillin resistant Staphylococcus aureus infection; F32.A Depression, unspecified; F41.9 Anxiety disorder, unspecified; Y99.8 Other external cause status; Z95.820 Peripheral vascular angioplasty status with implants and grafts
CPT/HCPCS: 37224; 75625; 75716; 76937; 80048; 82962; 85027; 85610; 85730; 86850; 86900; 86901; C1769; C1887; C1894; C2623

== ENCOUNTER → 2023-10-20 09:58 | Outpatient (REF) | payer MEDICARE, OTHER, SELFPAY ==
[2023-10-20 11:49] LABS: Iron 50 ug/dl (37-170)
[2023-10-20 11:56] LABS: IgA 147 mg/dl (70-400)
[2023-10-20 11:59] LABS: Percent Saturation 18 % (20-50); Total Iron Binding Capacity 265 ug/dl (265-497)
[2023-10-20 12:19] LABS: TSH Reflex To Free T4 5.11 uIU/ml (0.47-4.68)
[2023-10-20 12:24] LABS: Ferritin 17.7 ng/ml (11.1-264.0)
[2023-10-20 12:44] LABS: Free T4 1.27 ng/dl (0.78-2.19)
[2023-10-20 12:55] LABS: Folate 6.9 ng/ml (2.76-20); Vitamin B12 563 pg/ml (239-931)
== END ==
LOC: OLABN 09:58
PROVIDERS: ATTENDING PHYSICIAN Student in an Organized Health Care Education/Training Program
DX: Z13.811 Encounter for screening for lower gastrointestinal disorder (principal); Z13.29 Encounter for screening for other suspected endocrine disorder; D50.9 Iron deficiency anemia, unspecified
CPT/HCPCS: 82607; 82728; 82746; 82784; 83516; 83540; 83550; 84439; 84443

== ENCOUNTER 2023-10-24 18:07 | Inpatient (IN) | payer MEDICARE, OTHER, SELFPAY ==
[2023-10-24 15:00] VITALS: BP 123/49
--- NOTE | 2023-10-24 15:11 | ED.GENMED ---
History of Present Illness
General
Chief Complaint: Back Pain
Source: patient
Exam Limitations: none
Time Seen by Provider: 10/24/23 15:03
History of Present Illness
History of Present Illness:
See MDM
Past History
Past History
ED Past Medical History: Arrthythmia (Atrial fibrillation), CAD, CHF, HTN, Hypercholesterolemia, IDDM, Psychiatric (Anxiety, bipolar disorder, Depression), Other (Peripheral Vascular disease, Cellulitis, MRSA, PNA, Cellulitis, UTI, Chronic back ain,
Diabetic neuropathy, PNA, Glaucoma, Anemia iron def, Herniated disc) and Other (Herniated disc)
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
Social History
Tobacco: Non-smoker (Secondhand smoke exposure)
Alcohol: None
Drug: None
Personal:
Living: [facility])
Employment: Employed
Family History
Family History: Other (Father with [place], mother with diabetes, sister with diabetes)
Phy Exam
Physical Exam
Physical Exam:
See MDM
Course
Orders/Labs/Results
Orders:
Orders
10/24/23 15:09
HYDROmorphone [Dilaudid] 1 mg IV NOW STA
10/24/23 15:10
CT Abd/pel Without Iv Or Oral Urgent
Comment:
Reason For Exam: b/l back pain
10/24/23 15:14
Basic Metabolic Panel Urgent
Complete Blood Count/With Diff Urgent
10/24/23 15:32
Urinalysis Reflex To Culture Urgent
Date Specimen was Collected: 10/24/23
Time Specimen was Collected: 15:29
Urine Microscopic Reflex Cult Urgent
Urine Culture Urgent
KELSEY Source: U
Specimen Description:
Date Specimen was Collected: 10/24/23
Time Specimen was Collected: 15:29
10/24/23 15:56
0.9% Sodium Chloride 1000 ml [Nss] 1,000 ml IV BOLUS
10/24/23 17:12
Cefepime HCl [Maxipime] 1,000 mg IV NOW STA
Abnormal Lab Results
10/24/23 10/24/23
15:14 15:32
WBC 13.2 H 10^3/uL
(4.8-10.8)
RBC 3.73 L 10^6/uL
(4.20-5.40)
Hgb 10.4 L g/dL
(12.0-16.0)
Hct 32.0 L %
(37.0-47.0)
MCHC 32.5 L g/dL
(33.0-37.0)
RDW 16.5 H %
(11.5-14.5)
MPV 10.7 H fL
(7.4-10.4)
Abs Immat Gran (auto) 0.1 H 10^3/uL
(0-0.05)
Absolute Neuts (auto) 8.4 H 10^3/uL
(1.4-6.5)
Absolute Lymphs (auto) 4.1 H 10^3/uL
(1.2-3.4)
Carbon Dioxide 14 L* mmol/L
(22-30)
BUN 78 H mg/dl
(7-17)
Creatinine 3.2 H mg/dL
(0.6-1.0)
Glucose 156 H mg/dl
(70-99)
Calcium 8.3 L mg/dl
(8.4-10.2)
Ur Occult Blood Reflex 1+ A
(Negative)
Urine Nitrite (Reflex) Positive A
(Negative)
Leukocyte Esterase Rfl 2+ A
(Negative)
Urine Glucose 2+ A
(Negative)
10/24/23 15:14
10/24/23 15:14
Vital Signs
Initial and Last Documented VS:
Initial Vital Signs
Temp Pulse Resp Pulse Ox
97.7 F 74 14 90
10/24/23 14:52 10/24/23 14:52 10/24/23 14:52 10/24/23 14:52
Last Documented Vital Signs
Temp Pulse Resp BP Pulse Ox
97.7 F 74 14 123/49 90
10/24/23 14:52 10/24/23 14:52 10/24/23 14:52 10/24/23 15:00 10/24/23 14:52
MDM/Problems Addressed
Differential Diagnosis Includes:
HPI and MDM Narrative:
68-year-old female presenting with back pain. This appears to be a chronic issue. Patient states she is usually on OxyContin. She claims this is her 'kidney pain'. She denies any trauma. She incidentally is complaining of 'lump on her buttock'.
On exam, she appears comfortable but intermittently moans. On back exam, there is no rash or CVA tenderness. There is minor skin breakdown in her sacral area. The breakdown is the lump in which she is referring to. Clinically, there is no
abscess. Given her chronic issues, will obtain CT to rule out any acute abnormality. Will give dose of Dilaudid and obtain urinalysis
Physical exam
General: Well appearing and non-toxic. Intermittently moaning
HEENT: protecting airway
Neck: appears supple
CV: No evidence of cyanosis
Resp: No accessory muscle use
Abd: Non-distended. No tenderness elicited to palpation
Back: No CVA tenderness. Mild skin breakdown to the sacral area.
Extremities: Amputations noted to left foot. Amputation noted to right leg. Both stumps with cap refill less than 2 seconds
Neuro: alert
Psych: Normal affect
Skin: Intact
Problems Addressed including Acute and Chronic Conditions affecting care:
1. Chronic back pain
Acuity: Chronic
Prognosis: stable
Details: Will obtain CT and obtain basic blood work looking for evidence of worsening kidney injury
2. Pyelonephritis
Acuity: acute
Prognosis: stable
Details: Will start cefepime
Updates
CT confirms chronic hydronephrosis. No obvious stone. Urine consistent with UTI. Will start cefepime. CT also is suggestive of possible pneumonia but she has not been coughing. Given the acute on chronic pain in addition to current UTI with
possible pyelonephritis, will start cefepime and admit
Differential Diagnosis (but not limited to): Chronic back pain, kidney stone, UTI, pyelonephritis,
Testing considered: Renal ultrasound
Drug therapy (if applicable): OTC meds, please see d/c instruction regarding Rx drugs
Amount and/or Complexity of Data Reviewed
Clinical info obtained from: Patient
External data reviewed: Prior records acute chronic back pain and history of chronic hydronephrosis
Labs I independently reviewed (but not limited to): Leukocytosis, worsening creatinine and GFR
Radiology: The CT scan was personally and independently reviewed. In addition, official CT report reviewed.
Pulse Ox: not hypoxic
EKG independently reviewed: N/A
Radio Equipment Repairer: N/A
Critical Care: N/A
Risk of Complication:
Social Determinants of health: Good social support
Discussed with other providers: Hospitalist
Escalation of Care includes Admit/Obs: given the worsening pain with concern for possible pyelonephritis, will start cefepime and admit
Occasional wrong word or 'sound a like' substitutions may have occurred due to the inherent limitations of voice recognition software. Read the chart carefully and recognize, using context, where substitutions have occurred.
*Critical Care Note
Total Time (30-74mins, 75-104mins- exclusive of procedures): Not Applicable
ED Attending Note
-
Portions of this chart may have been created with voice recognition software.� Occasional wrong word or��sound alike� substitutions may have occurred due to the inherent limitations of voice recognition software.
Discharge Plan
Departure
Patient Disposition: Admit
Date of Disposition: 10/24/23
Time of Disposition: 17:15
Admit to: Med/Surg
Presentation/result/management discussed w/ accepting MD/DO: Hospitalist
Discharge Problem:
Acute on chronic back pain, SUKUMAR (acute kidney injury), Acute pyelonephritis
Prescriptions:
No Action
trazodone 50 MG tablet
75 mg PO HS
insulin aspart U-100 [Novolog FlexPen U-100 Insulin] 300 UNITS/3 ML insulin pen
0 - 12 sliding scale dose SC MEALS
Rx Instructions:
Sliding Scale: if 151-200= 2u; 201-250= 4u; 251-300= 6u; 301-350= 8u; 351-400= 10u; >400= 12u
fluoxetine 40 mg Capsule
40 mg PO DAILY@1430
Rx Instructions:
To be given with Fluoxetine 10mg to equal prescribed dose of 50mg daily.
lamotrigine [Lamictal] 150 mg Tablet
150 mg PO QPM
atorvastatin 80 mg tablet
80 mg PO HS
acetaminophen 325 mg Tablet
650 mg PO Q4H MDD 3000 mg PRN (Reason: mild pain/fever >100.4)
lidocaine 4 % Adhesive Patch,Medicated
1 patch TOPICAL DAILYPRN PRN (Reason: left lateral shoulder)
diclofenac sodium 1 % Gel
2 g TOPICAL BID
latanoprost [Xalatan] 0.005 % Drops
1 drp BOTH EYES HS
loperamide [Imodium A-D] 2 mg Tablet
2 mg PO Q6HPRN PRN (Reason: diarrhea)
bisacodyl 10 mg Suppository
10 mg NE DAILYPRN PRN (Reason: no BM 3 days, if MOM ineffective)
Patient Comments:
Greater than 8 days ago per [facility]
ferrous sulfate [iron] 325 mg (65 mg iron) Tablet
325 mg PO MOWEFR
Fleet Enema 19-7 gram/118 mL Enema
118 ml NE DAILY PRN (Reason: no results from/refuse suppository)
Patient Comments:
Greater than 8 days per [facility]
lorazepam [Ativan] 1 mg Tablet
1 mg PO BID
insulin aspart U-100 [Novolog U-100 Insulin aspart] 100 unit/mL Solution
12 unit SC MEALS
fluoxetine 10 mg Capsule
10 mg PO DAILY@1430
Rx Instructions:
To be given w/ Fluoxetine 40mg to equal prescribed dose of 50mg daily.
ondansetron 4 mg tablet,disintegrating
4 mg PO Q6HPRN PRN (Reason: nausea/vomiting)
carvedilol 6.25 MG tablet
6.25 mg PO BID
aripiprazole [Abilify] 5 mg Tablet
5 mg PO HS
insulin glargine [Lantus Solostar U-100 Insulin] 100 unit/mL (3 mL) Insulin Pen
20 unit SC BID
Jardiance 25 mg Tablet
25 mg PO DAILY
oxycodone 5 mg Capsule
5 mg PO Q8HPRN PRN (Reason: Acute pain)
gabapentin 300 mg Capsule
300 mg PO QPM
cetirizine 10 mg Capsule
10 mg PO QPM
bumetanide 1 mg Tablet
1 mg PO BID
apixaban 5 mg Tablet
5 mg PO BID
pramipexole 0.125 mg Tablet
0.125 mg PO QPM
aspirin 81 mg Tablet,Delayed Release (Dr/Ec)
81 mg PO QPM
Entresto 24-26 mg Tablet
1 tab PO BID
brimonidine 0.15 % Drops
1 drp LEFT EYE Q12H
omeprazole 40 mg Capsule,Delayed Release(Dr/Ec)
40 mg PO DAILY
dorzolamide-timolol 22.3-6.8 mg/mL Drops
1 drp LEFT EYE BID
fluocinolone 0.01 % Solution
1 applic TOPICAL DAILY
Patient Comments:
10/24/23: left parietal scalp and right posterior neck
Linzess 145 mcg Capsule
145 mcg PO DAILY
Patient Comments:
10/24/23: Note from 10/19/23, trial dosage, if diarrhea go to 72mcg, if constipation occurs go to 290mcg
Referrals:
Paulo Loera DO [Family Provider] -
Interventions
Interventions:
*Risk Screen - Suicide Last Done: 10/24/23 14:52
*General Assessment Last Done: 10/24/23 14:52
*Neglect/Abuse Screening Last Done: 10/24/23 14:52
Discharge Date and Time
Print Language: KAZAKH
[2023-10-24 15:23] LABS: Hemoglobin 10.4 g/dL (12.0-16.0); Mean Corp Hgb Conc. 32.5 g/dL (33.0-37.0); Mean Corpuscular Hgb 27.9 pg (27.0-31.0); Mean Corpuscular Volume 85.8 fL (81.0-99.0); Mean Platelet Volume 10.7 fL (7.4-10.4); Platelet Count 202 10^3/uL (130-400); Red Blood Cell Count 3.73 10^6/uL (4.20-5.40); Red Cell Dist. Width 16.5 % (11.5-14.5); White Blood Cell Count 13.2 10^3/uL (4.8-10.8)
[2023-10-24] MEDS: DILAUDID 1 MG IV (15:25)
[2023-10-24 15:47] LABS: % Basophils 0.2 % (0-2); % Eosinophils 0.1 % (0-6); % Immature Granulocytes 0.5 % (0-0.5); % Lymphocytes 31.2 % (20.5-51.1); % Monocytes 4.5 % (1.7-9.3); % Neutrophils 63.5 % (42.2-75.2); Absolute Immature Granulocytes 0.1 10^3/uL (0-0.05); Absolute Lymphocytes 4.1 10^3/uL (1.2-3.4); Absolute Monocytes 0.6 10^3/uL (0.1-0.6); Absolute Neutrophils 8.4 10^3/uL (1.4-6.5); Nucleated Red Blood Cells % 0 %
[2023-10-24 15:48] LABS: Blood Urea Nitrogen 78 mg/dl (7-17); Calcium 8.3 mg/dl (8.4-10.2); Carbon Dioxide 14 mmol/L (22-30); Chloride 107 mmol/L (98-107); Estimated Creatinine Clearance 23 ml/min; Glucose 156 mg/dl (70-99); Sodium 135 mmol/L (135-145); eGFR 15.29
[2023-10-24 16:00] VITALS: BP 118/58
[2023-10-24 16:02] LABS: Urine Albumin Trace (Neg - Trace); Urine Bilirubin Negative (Negative); Urine Character Slightly Cloudy (Clear); Urine Color Yellow; Urine Glucose 2+ (Negative); Urine Ketone Negative (Negative); Urine Leukocyte 2+ (Negative); Urine Nitrite Positive (Negative); Urine Occult Blood 1+ (Negative); Urine Specific Gravity 1.015 (<1.030); Urine Urobilinogen Negative (Neg - 1+)
[2023-10-24] MEDS: NSS 1000 IV (16:54)
--- NOTE | 2023-10-24 17:19 | HPS.HSE ---
Addendum entered and electronically signed by Rhea Andrade MD 10/24/23 18:00:
Addendum
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
Raises concern for contrast induced nephropathy
End
Original Note:
Family Physician
-
Family Physician: Paulo Loera DO
Chief Complaint
-
Left kidney pain, back pain
History of Present Illness
68 years old female was brought in from correction for back pain and left kidney pain. History is taken from the ER doctor. Patient was transferred for kidney pain. She is poor historian. She was found to have creatinine 3.2 from baseline 1.7
in September 2023. She had metabolic acidosis. Positive leukocytosis of 13.7. Hemoglobin 10.4. No fever. No hypotension.
Patient keeps pointing to the left flank pain. She is hard hearing.
Medical History
Past Medical History
Past Medical History: Reports Other (Depression, hyperlipidemia, diabetes, anxiety, chronic pain syndrome, chronic kidney disease, hypertension, bipolar, peripheral arterial disease, coronary artery disease, paroxysmal atrial fibrillation)
Past Surgical History: Reports Other (No recent major surgery)
Social History
Tobacco: Non-smoker
Alcohol: None
Drug: None
Personal:
Living: Care Home
Employment: Retired
Family History
Family History: CAD, Diabetes and Hypertension
Allergies / Home Medications
Allergies reflects when Allergies were last updated in [employer]
Home Medications with original date entered in [employer]
Allergy/Medication List:
Allergies
Allergy/AdvReac Type Severity Reaction Status Date / Time
doxycycline Allergy Nausea / Verified 10/24/23 14:51
Vomiting
erythromycin base Allergy BREATHING Verified 10/24/23 14:51
[Erythromycin Base]
Penicillins Allergy Rash and Verified 10/24/23 14:51
itch;
Tolerates
Meropenem
&
ceftriaxone
Home Medications
trazodone 50 mg tablet 75 mg PO HS insomnia 02/01/20
insulin aspart U-100 100 unit/mL (3 mL) subcutaneous pen (Novolog FlexPen U-100 Insulin aspart) 0 - 12 sliding scale dose SC MEALS Diabetes Mellitus 10/24/20
acetaminophen 325 mg tablet 650 mg PO Q4H PRN mild pain/fever >100.4 11/02/21
atorvastatin 80 mg tablet 80 mg PO HS Hyperlipidemia 11/02/21
diclofenac sodium 1 % topical gel 2 g topical BID neck areas 11/02/21
fluoxetine 40 mg capsule 40 mg PO DAILY@1430 Depression 11/02/21
lamotrigine 150 mg tablet (Lamictal) 150 mg PO QPM Anxiety 11/02/21
lidocaine 4 % topical patch 1 patch topical DAILYPRN PRN left lateral shoulder 11/02/21
bisacodyl 10 mg rectal suppository 10 mg [place] DAILYPRN PRN no BM 3 days, if MOM ineffective 08/13/22
ferrous sulfate 325 mg (65 mg iron) tablet (iron) 325 mg PO MOWEFR Iron Deficiency 08/13/22
latanoprost 0.005 % eye drops (Xalatan) 1 drp BOTH EYES HS Glaucoma 08/13/22
loperamide 2 mg tablet (Imodium A-D) 2 mg PO Q6HPRN PRN diarrhea 08/13/22
lorazepam 1 mg tablet (Ativan) 1 mg PO BID Mental Health/Anxiety 08/13/22
sodium phosphates 19 gram-7 gram/118 mL enema (Fleet Enema) 118 ml [place] DAILY PRN no results from/refuse suppository 08/13/22
insulin aspart U-100 100 unit/mL subcutaneous solution (Novolog U-100 Insulin aspart) 12 unit SC MEALS Diabetes Mellitus 10/18/22
carvedilol 6.25 mg tablet 6.25 mg PO BID Heart Failure 05/06/23
fluoxetine 10 mg capsule 10 mg PO DAILY@1430 Depression 05/06/23
ondansetron 4 mg disintegrating tablet 4 mg PO Q6HPRN PRN nausea/vomiting 05/06/23
aripiprazole 5 mg tablet (Abilify) 5 mg PO HS Bipolar Mood Disorder 06/30/23
empagliflozin 25 mg tablet (Jardiance) 25 mg PO DAILY DM 06/30/23
insulin glargine 100 unit/mL (3 mL) subcutaneous pen (Lantus Solostar U-100 Insulin) 20 unit SC BID DM 06/30/23
cetirizine 10 mg capsule 10 mg PO QPM ITCHING 09/01/23
gabapentin 300 mg capsule 300 mg PO QPM neuropathy 09/01/23
oxycodone 5 mg capsule 5 mg PO Q8HPRN PRN Acute pain 09/01/23
apixaban 5 mg tablet 5 mg PO BID Atrial Fibrillation 10/10/23
bumetanide 1 mg tablet 1 mg PO BID Heart Failure 10/10/23
pramipexole 0.125 mg tablet 0.125 mg PO QPM RESTLESS LEG SYNDROME 10/10/23
aspirin 81 mg tablet,delayed release 81 mg PO QPM 10/13/23
brimonidine 0.15 % eye drops 1 drp LEFT EYE Q12H 10/13/23
sacubitril 24 mg-valsartan 26 mg tablet (Entresto) 1 tab PO BID 10/13/23
dorzolamide 22.3 mg-timolol 6.8 mg/mL eye drops 1 drp LEFT EYE BID 10/24/23
fluocinolone 0.01 % topical solution 1 applic topical DAILY excoriated areas 10/24/23
linaclotide 145 mcg capsule (Linzess) 145 mcg PO DAILY 10/24/23
omeprazole 40 mg capsule,delayed release 40 mg PO DAILY 10/24/23
Review of Systems
-
History Source: Patient
A 12 point ROS was completed and negative except as noted: Yes
Constitutional: Denies Fever or Chills
EENT: Denies Sore Throat
Respiratory: Denies Cough
Cardiac: Denies Chest Pain
Abdomen/GI: Denies Nausea or Vomiting
: Reports Flank Pain (left )
Musculoskeletal: Reports Other (low back pain )
Skin: Denies Itching
Neurological: Denies Headache
Endocrine: Denies Temp Intolerance
Psych: Denies Panic Disorder
Physical Exam
Vital Signs
Vital Signs
Temp Pulse Resp BP Pulse Ox
97.7 F 74 14 123/49 90
10/24/23 14:52 10/24/23 14:52 10/24/23 14:52 10/24/23 15:00 10/24/23 14:52
Physical Exam
General: Comfortable and Appears Chronically Ill
HEENT: Atraumatic and Other (poor dentition )
Respiratory: Decreased Breath Sounds
Cardiac: S1/S2
GI: Soft and Non Tender
Rectal: No Maroon Stools
Genito-urinary: Clear Urine
Musculoskeletal: No Cyanosis and Other (R BKA, Left forefoot amputation )
Skin: Warm; No Jaundice
Neuro: Awake and Other (followed commands. )
Psych: Calm; No Agitated
Laboratory Results
-
10/24/23 15:14
10/24/23 15:14
Laboratory Results
Total Bilirubin Cancelled 10/24/23 15:14
AST Cancelled 10/24/23 15:14
ALT Cancelled 10/24/23 15:14
Alkaline Phosphatase Cancelled 10/24/23 15:14
Impression/Plan
-
68 female with left flank pain was found to have SUKUMAR
#Acute kidney injury on chronic kidney disease stage IIIb with metabolic acidosis --
Admit the patient to the hospital
Differential diagnosis include prerenal versus medication induced
Will hold Entresto, Bumex, Farxiga
Will give IV fluid with sodium bicarbonate
Hudson catheter for input output and possibility of retention/obstructive nephropathy, CAT scan reviewed
Avoid nephrotoxic.
No history of hematuria.
Pain control for left flank pain.
Appreciate urology and nephrology input
# Acute on chronic pain syndrome
Patient complains of left flank pain and lower back pain
Will continue with the Neurontin but adjust dose according to renal function
Continue with as needed oxycodone, Tylenol
# Leukocytosis.
Could be reactive to possible urinary tract infection.
Will do blood culture, urine culture
Empiric IV antibiotic
Monitor temperature curve and WBC
No hypotension. No fever
CAT scan showed left lower atelectasis. No history of cough or hypoxia. Doubt pneumonia. But will follow closely
# History of paroxysmal atrial fibrillation--rate controlled and appears in sinus rhythm--continue Eliquis, carvedilol
#History of peripheral arterial disease/atherosclerotic cardiovascular disease--continue aspirin--patient with right BKA, left forefoot amputation
Vascular surgery Dr. Velázquez
#Type 2 diabetes mellitus with retinopathy and polyneuropathy--continue insulin with diabetic diet--Accu-Cheks with sliding scale insulin coverage
#Morbid obesity--affects all aspects of care
#Iron deficiency anemia--hemoglobin at baseline, 10--follow with hydration--continue iron supplements
#History of bipolar/anxiety with previous history of suicide attempt December 2021--hospitalized at [facility]--continue trazodone, fluoxetine Abilify, Ativan.
Mood is cooperative
#History of connective tissue disease--noted--unclear what the connective tissue disorder is.
#History of radiculopathy with C6-C7, Cervicalgia
# Stage II sacral pressure ulcer, present on admission
# Hard hearing with history of glaucoma--continue eyedrops
# CODE STATUS--DNR
DVT prophylaxis, on Eliquis
Total time spent to see the patient, examine the patient on the floor, review data and lab results, discuss treatment plan with patient, ER doctor, nursing staff around 75 minutes.
[2023-10-24 17:28] LABS: Urine Red Blood Cell 0-2 /HPF (0-2)
[2023-10-24 17:30] LABS: Urine Bacteria Many (Negative)
[2023-10-24] MEDS: MAXIPIME 1000 MG IV (18:19)
[2023-10-24 19:38] VITALS: BP 131/67; BMI 39.9
--- NOTE | 2023-10-24 20:00 | PTCARENOTE ---
Pt transferred from ED. Pt AAOX2, able to make needs known, VSS. Pt oriented to unit, call spencer within reach, bed in lowest position. Will continue with current plan.
[2023-10-24 20:40] LABS: Glucose - Point of Care 143 mg/dl (70-99)
[2023-10-24] MEDS: ASPIR LOW (ENTERIC COATED) 81 MG PO (21:08)
[2023-10-24] MEDS: NEURONTIN 100 MG PO (21:09)
[2023-10-24] MEDS: COREG 6.25 MG PO (21:09)
[2023-10-24] MEDS: ELIQUIS 5 MG PO (21:09)
[2023-10-24] MEDS: LAMICTAL 50 MG PO (21:10)
[2023-10-24] MEDS: MIRAPEX 0.125 MG PO (21:10)
[2023-10-24] MEDS: XALATAN OPHTHALMIC SOLUTION 1 DROP BOTH EYES (21:11)
[2023-10-24] MEDS: COSOPT EYE DROPS 1 DROP LEFT EYE (21:11)
[2023-10-24] MEDS: ALPHAGAN P 0.15% EYE DROPS 1 DROP LEFT EYE (21:12)
[2023-10-24] MEDS: LANTUS 0.15 UNITS SC (21:12)
[2023-10-24] MEDS: LAMICTAL 100 MG PO (21:13)
[2023-10-24] MEDS: SODIUM BICARBONATE 1050 MEQ IV (21:14)
[2023-10-24] MEDS: ABILIFY 5 MG PO (21:15)
[2023-10-24] MEDS: ATIVAN 1 MG PO (21:15)
[2023-10-24] MEDS: DESYREL 75 MG PO (21:15)
[2023-10-24 23:36] VITALS: BP 109/61
[2023-10-25] VITALS (7 sets, daily range): BP systolic 92–134; BP diastolic 51–66; PULSE 82; O2SAT 84; BMI 40.0
[2023-10-25 00:10] LABS: Urine Protein 76 mg/dl (0-12); Urine Sodium 23 mmol/L (30-90)
[2023-10-25] MEDS: ROXICODONE 5 MG PO (00:23)
[2023-10-25] MEDS: MAXIPIME 1000 MG IV ×2 (05:19→16:44)
[2023-10-25] MEDS: STERILE WATER FOR INJECTION 10 ML IV ×2 (05:20→16:45)
[2023-10-25 08:04] LABS: Glucose - Point of Care 99 mg/dl (70-99)
[2023-10-25] MEDS: NOVOLOG FLEXPEN-HIGH RESISTANCE SC ×2 (08:08→16:08)
[2023-10-25] MEDS: COREG 6.25 MG PO ×2 (08:15→21:10)
[2023-10-25] MEDS: LANTUS 0.15 UNITS SC ×2 (08:16→21:10)
[2023-10-25] MEDS: ELIQUIS 5 MG PO ×2 (08:16→21:10)
[2023-10-25] MEDS: ATIVAN 1 MG PO ×2 (08:16→21:11)
[2023-10-25] MEDS: ALPHAGAN P 0.15% EYE DROPS 1 DROP LEFT EYE ×2 (08:18→21:11)
[2023-10-25] MEDS: COSOPT EYE DROPS 1 DROP LEFT EYE ×2 (08:18→21:11)
[2023-10-25] MEDS: LINZESS 145 MCG PO (08:44)
--- NOTE | 2023-10-25 09:28 | W.PN.HOSP.TC ---
Today's Communication/Plan
-
Await blood work result
No need for more IVF unless nephrology decides to order it.
Assessment / Plan
Assessment / Plan
Physical Exam
General: Comfortable and Appears Chronically Ill
HEENT: Atraumatic and Other (poor dentition )
Respiratory: Decreased Breath Sounds
Cardiac: S1/S2
GI: Soft and Non Tender
Rectal: No Maroon Stools
Genito-urinary: Clear Urine
Musculoskeletal: No Cyanosis and Other (R BKA, Left forefoot amputation )
Skin: Warm; No Jaundice
Neuro: Awake and Other (followed commands. )
Psych: Calm, anxious at times, ; No Agitated
68 female with left flank pain was found to have SUKUMAR
#Acute kidney injury on chronic kidney disease stage IIIb with metabolic acidosis --
Await BMP today
no need for more IVF
Differential diagnosis include prerenal versus medication, contrast induced
Holding Entresto, Bumex, Farxiga
s/p IV fluid with sodium bicarbonate
Hudson catheter for input output and possibility of retention/obstructive nephropathy, CAT scan reviewed
Avoid nephrotoxic.
No history of hematuria.
Pain control for left flank pain.
Appreciate urology and nephrology input
# Acute on chronic pain syndrome
Patient complains of left flank pain and lower back pain
Will continue with the Neurontin but adjust dose according to renal function
Continue with as needed oxycodone, Tylenol
# Leukocytosis. UTI, urine positive for now, await further result
Blood culture is pending.
Empiric IV antibiotic
Monitor temperature curve and WBC
No hypotension. No fever
CAT scan showed left lower atelectasis. No history of cough or hypoxia. Doubt pneumonia. But will follow closely
# History of paroxysmal atrial fibrillation--rate controlled and appears in sinus rhythm--continue Eliquis, carvedilol
#History of peripheral arterial disease/atherosclerotic cardiovascular disease--continue aspirin--patient with right BKA, left forefoot amputation
Vascular surgery Dr. Velázquez
#Type 2 diabetes mellitus with retinopathy and polyneuropathy--continue insulin with diabetic diet--Accu-Cheks with sliding scale insulin coverage
#Morbid obesity--affects all aspects of care
#Iron deficiency anemia--hemoglobin at baseline, 10--follow with hydration--continue iron supplements
#History of bipolar/anxiety with previous history of suicide attempt December 2021--hospitalized [facility]--continue trazodone, fluoxetine Abilify, [facility].
Mood is cooperative
#History of connective tissue disease--noted--unclear what the connective tissue disorder is.
#History of radiculopathy with C6-C7, Cervicalgia
# Stage II sacral pressure ulcer, present on admission
# Hard hearing with history of glaucoma--continue eyedrops
# CODE STATUS--DNR, confirmed with .
DVT prophylaxis, on Eliquis
Total time spent to see the patient, examine the patient on the floor, review data and lab results, discuss treatment plan with patient, nursing staff around 55 minutes.
Anticipated Discharge: > 48 hours
Subjective/Interval History
-
Date of Service: October 25, 2023
No chest pain
No sob
Tearful at times this morning
Objective Data
-
Labs:
Laboratory Results
10/25/23
06:00
WBC Pending
Hgb Pending
Hct Pending
Plt Count Pending
Sodium Pending
Potassium Pending
Chloride Pending
Carbon Dioxide Pending
BUN Pending
Creatinine Pending
Glucose Pending
Calcium Pending
Vital Signs:
Vital Signs
Temp Pulse Resp BP Pulse Ox
98.1 F 54 18 109/81 91
10/25/23 07:52 10/25/23 07:52 10/25/23 07:52 10/25/23 08:15 10/25/23 07:52
I&O
10/24/23 10/25/23 10/26/23
06:59 06:59 06:59
Intake Total 720 / 720
Output Total 300 / 300
Balance 420 / 420
--- NOTE | 2023-10-25 09:32 | W.PN.URO.CBU ---
Today's Communication / Plan
-
Keep Hudson
Follow BMP
Await blood and urine cultures
Assessment / Plan
-
SUKUMAR on CKD: likely multifactorial with possible high-pressure bladder/vesicoureteral reflux
Diagnosis
-
Date of Service: October 25, 2023
-
Patient Diagnosis:
Bilateral hydroureteronephrosis c/w vesicoureteral reflux
SUKUMAR on baseline CKD
Possible complicated UTI
Subjective
-
Lethargic
c/o back pain
Objective
-
Vital Signs
Temp Pulse Resp BP Pulse Ox
98.1 F 54 18 109/81 91
10/25/23 07:52 10/25/23 07:52 10/25/23 07:52 10/25/23 08:15 10/25/23 07:52
Intake and Output
10/24/23 10/25/23 10/26/23
06:59 06:59 06:59
Intake Total 720 / 720
Output Total 300 / 300
Balance 420 / 420
Intake:
IV fluids (Total) 720 / 720
Output:
Urine, Hudson 300 / 300
CT scan: bilateral hydroureteronephrosis: left > right, no upper or lower tract stones or masses
Review of Systems
-
Constitutional: Fatigue
Respiratory: No Symptoms
Abdomen/GI: Abdominal Pain
: No Symptoms
Physical Exam
-
General - no acute distress
Abdomen - soft, non-tender, no CVAT
Genitalia - Hudson draining clear urine
Counseling
-
Keep Hudson
Will follow
[2023-10-25] MEDS: SODIUM BICARBONATE 1050 MEQ IV (10:21)
[2023-10-25 11:17] LABS: Hematocrit 30.8 % (37.0-47.0); Hemoglobin 9.8 g/dL (12.0-16.0); Mean Corp Hgb Conc. 31.8 g/dL (33.0-37.0); Mean Corpuscular Hgb 28.2 pg (27.0-31.0); Mean Corpuscular Volume 88.8 fL (81.0-99.0); Mean Platelet Volume 10.7 fL (7.4-10.4); Platelet Count 179 10^3/uL (130-400); Red Blood Cell Count 3.47 10^6/uL (4.20-5.40); Red Cell Dist. Width 16.6 % (11.5-14.5); White Blood Cell Count 10.1 10^3/uL (4.8-10.8)
--- NOTE | 2023-10-25 11:44 | WOUNDNOTE ---
R ISCHIUM WITH FLASH
--- NOTE | 2023-10-25 11:49 | WOUNDNOTE ---
CHARLETTE RN note: Patient admitted with Acute kidney injury.
See H&P for complete history. Lives at [facility].
PMH: CHF, a fib, obesity, CAD, NIDDM, RLE bypass, L TMA, R BKA, HTN, 03/2018 LLE angioplasty and stent.
Wound Location and type/assessment: Patient known to service, admitted with Sacral/R buttock incontinent associated skin damage. Patient reports area is painful to touch. Patient confirmed that she is incontinent of loose stools daily. Hudson in
use. Old Ischium and R BKA abrasion have since healed. L heel is blanchable red, pillow under leg.
Appetite: Good.
Pressure redistribution devices in place: Advanta bed. Patient refused having bed switched to air mattress, states she is unable to turn and reposition on it. Accepted an air chair cushion to place under sacrum. Pillow under L leg.
Plan: Silicone border foam in use on Sacrum, added barrier cream to small open area. Patient turned onto R semi side lying position with help from PCT. Nursing care plan to be updated and will follow as needed.
Note to case management requested for discharge: None
[2023-10-25 11:52] LABS: Glucose - Point of Care 175 mg/dl (70-99)
[2023-10-25 12:00] LABS: Glycohemoglobin (HgbA1c) 8.2 % (4.0-5.6)
[2023-10-25] MEDS: NOVOLOG FLEXPEN-HIGH RESISTANCE 1 UNITS SC (12:30)
[2023-10-25] MEDS: PROZAC 40 MG PO (14:14)
[2023-10-25] MEDS: PROZAC 10 MG PO (14:14)
[2023-10-25 14:29] LABS: Blood Urea Nitrogen 82 mg/dl (7-17); Calcium 8.2 mg/dl (8.4-10.2); Carbon Dioxide 19 mmol/L (22-30); Chloride 106 mmol/L (98-107); Estimated Creatinine Clearance 20 ml/min; Glucose 80 mg/dl (70-99); Potassium 4.4 mmol/L (3.5-5.1); Sodium 138 mmol/L (135-145); eGFR 13.73
--- NOTE | 2023-10-25 15:27 | W.CON.NEPH ---
Consultation
-
Date/Time Consultation Requested: 10/24/2023 18:57
Date/Time Consultation Performed: 10/25/2023 3:28PM
Requesting Provider: Rhea Andrade
Performing Provider: Tammi Beck
Reason for Consultation: SUKUMAR
Medical History
-
Chief Complaint: SUKUMAR
History of Present Illness:
Ms. Kelley is a 68YOF with PMH of depression, DLD, diabetes (most recent A1C >8%), CKD, HTN, bipolar disese, CAD, pAfib who presents to the hospital for back pain and L kidney pain. The patient is a very poor historian but states that the main
thing that is bothering her is a sacral wound. She states that it causes significant back pain. Denies fevers, nausea, vomiting, diarrhea, chest pain. Has not noticed any changes in urination. Denies discomfort with urination.
Of note, I did review her kidney function trends. It appears that she normally has a Cr around 1.7-2.2, most recently elevated to 3.5.
Past Medical History
depression
DLD
diabetes (most recent A1C >8%)
CKD (bl Cr 1.7-2.2)
HTN
bipolar disaese
CAD
pAfib
Past Surgical History: None
Social History
Tobacco: Non-Smoker
Alcohol: None
Drug: None
Personal:
Living: Long Term
Family History
Family History: Not Pertinent
Allergies / Home Medications
Allergy/AdvReac Type Severity Reaction Status Date / Time
doxycycline Allergy Nausea / Verified 10/24/23 14:51
Vomiting
erythromycin base Allergy BREATHING Verified 10/24/23 14:51
[Erythromycin Base]
Penicillins Allergy Rash and Verified 10/24/23 14:51
itch;
Tolerates
Meropenem
&
ceftriaxone
�Medication �Instructions �Recorded �Confirmed �Type
trazodone 50 mg tablet 75 mg PO HS insomnia 02/01/20 10/24/23 History
insulin aspart U-100 100 unit/mL 0 - 12 sliding scale dose SC MEALS 10/24/20 10/24/23 History
(3 mL) subcutaneous pen (Novolog Diabetes Mellitus
FlexPen U-100 Insulin aspart)
acetaminophen 325 mg tablet 650 mg PO Q4H PRN mild pain/fever 11/02/21 10/24/23 History
>100.4
atorvastatin 80 mg tablet 80 mg PO HS Hyperlipidemia 11/02/21 10/24/23 History
diclofenac sodium 1 % topical gel 2 g topical BID neck areas 11/02/21 10/24/23 History
fluoxetine 40 mg capsule 40 mg PO DAILY@1430 Depression 11/02/21 10/24/23 History
lamotrigine 150 mg tablet 150 mg PO QPM Anxiety 11/02/21 10/24/23 History
(Lamictal)
lidocaine 4 % topical patch 1 patch topical DAILYPRN PRN left 11/02/21 10/24/23 History
lateral shoulder
bisacodyl 10 mg rectal suppository 10 mg MN DAILYPRN PRN no BM 3 08/13/22 10/24/23 History
days, if MOM ineffective
ferrous sulfate 325 mg (65 mg 325 mg PO MOWEFR Iron Deficiency 08/13/22 10/24/23 History
iron) tablet (iron)
latanoprost 0.005 % eye drops 1 drp BOTH EYES HS Glaucoma 08/13/22 10/24/23 History
(Xalatan)
loperamide 2 mg tablet (Imodium 2 mg PO Q6HPRN PRN diarrhea 08/13/22 10/24/23 History
A-D)
lorazepam 1 mg tablet (Ativan) 1 mg PO BID Mental Health/Anxiety 08/13/22 10/24/23 History
sodium phosphates 19 gram-7 118 ml MN DAILY PRN no results 08/13/22 10/24/23 History
gram/118 mL enema (Fleet Enema) from/refuse suppository
insulin aspart U-100 100 unit/mL 12 unit SC MEALS Diabetes Mellitus 10/18/22 10/24/23 History
subcutaneous solution (Novolog
U-100 Insulin aspart)
carvedilol 6.25 mg tablet 6.25 mg PO BID Heart Failure 05/06/23 10/24/23 History
fluoxetine 10 mg capsule 10 mg PO DAILY@1430 Depression 05/06/23 10/24/23 History
ondansetron 4 mg disintegrating 4 mg PO Q6HPRN PRN nausea/vomiting 05/06/23 10/24/23 History
tablet
aripiprazole 5 mg tablet (Abilify) 5 mg PO HS Bipolar Mood Disorder 06/30/23 10/24/23 History
empagliflozin 25 mg tablet 25 mg PO DAILY DM 06/30/23 10/24/23 History
(Jardiance)
insulin glargine 100 unit/mL (3 20 unit SC BID DM 06/30/23 10/24/23 History
mL) subcutaneous pen (Lantus
Solostar U-100 Insulin)
cetirizine 10 mg capsule 10 mg PO QPM ITCHING 09/01/23 10/24/23 History
gabapentin 300 mg capsule 300 mg PO QPM neuropathy 09/01/23 10/24/23 History
oxycodone 5 mg capsule 5 mg PO Q8HPRN PRN Acute pain 09/01/23 10/24/23 History
apixaban 5 mg tablet 5 mg PO BID Atrial Fibrillation 10/10/23 10/24/23 History
bumetanide 1 mg tablet 1 mg PO BID Heart Failure 10/10/23 10/24/23 History
pramipexole 0.125 mg tablet 0.125 mg PO QPM RESTLESS LEG 10/10/23 10/24/23 History
SYNDROME
aspirin 81 mg tablet,delayed 81 mg PO QPM 10/13/23 10/24/23 History
release
brimonidine 0.15 % eye drops 1 drp LEFT EYE Q12H 10/13/23 10/24/23 History
sacubitril 24 mg-valsartan 26 mg 1 tab PO BID 10/13/23 10/24/23 History
tablet (Entresto)
dorzolamide 22.3 mg-timolol 6.8 1 drp LEFT EYE BID 10/24/23 10/24/23 History
mg/mL eye drops
fluocinolone 0.01 % topical 1 applic topical DAILY excoriated 10/24/23 10/24/23 History
solution areas
linaclotide 145 mcg capsule 145 mcg PO DAILY 10/24/23 10/24/23 History
(Linzess)
omeprazole 40 mg capsule,delayed 40 mg PO DAILY 10/24/23 10/24/23 History
release
Review of Systems
-
Unable to obtain full review of systems at this time due to: Dementia
History Source: Patient
: Flank Pain
Musculoskeletal: Other (back pain)
Physical Exam
Vital Signs
Vital Signs
Temp Pulse Resp BP Pulse Ox
98.9 F 60 20 92/59 94
10/25/23 11:31 10/25/23 11:31 10/25/23 11:31 10/25/23 11:31 10/25/23 11:31
Lab Results
WBC 10.1 10^3/uL (4.8-10.8) 10/25/23 10:32
RBC 3.47 10^6/uL (4.20-5.40) L 10/25/23 10:32
Hgb 9.8 g/dL (12.0-16.0) L 10/25/23 10:32
Hct 30.8 % (37.0-47.0) L 10/25/23 10:32
Plt Count 179 10^3/uL (130-400) 10/25/23 10:32
Sodium 138 mmol/L (135-145) 10/25/23 10:32
Potassium 4.4 mmol/L (3.5-5.1) 10/25/23 10:32
Chloride 106 mmol/L (98-107) 10/25/23 10:32
Carbon Dioxide 19 mmol/L (22-30) L 10/25/23 10:32
BUN 82 mg/dl (7-17) H 10/25/23 10:32
Creatinine 3.5 mg/dL (0.6-1.0) H 10/25/23 10:32
eGFR 13.73 10/25/23 10:32
Glucose 80 mg/dl (70-99) 10/25/23 10:32
Calcium 8.2 mg/dl (8.4-10.2) L 10/25/23 10:32
Albumin Cancelled 10/24/23 15:14
Physical Exam
General: Awake, Alert, AOx3, No Distress and Nontoxic
HEENT: EOMI, Oropharynx Clear/Moist, Facial Symmetry, Neck Supple, Trachea Midline and Other (poor dentition)
Respiratory: Clear, Normal Excursion and Nonlabored Respirations
Cardiac: S1/S2, Regular Rate/Rhythm and No Edema
Breast: Deferred by me
Abdomen: Soft, Nontender, Nondistended, Normal Bowel Sounds and No Hepatosplenomegaly
Rectal: Deferred by Provider
Genito-urinary: Clear Urine
Musculoskeletal: No Clubbing, No Cyanosis and No Edema
Skin: No Rash, Warm, Dry, No Clubbing, No Cyanosis, Normal Turgor and No Bruising
Neuro: Nonfocal/Grossly Intact
Hematologic/Lymphatic: No Cervical Lymphadenopathy
Psych: Mood/afflect pleasant and Appropriate
Data Reviewed
-
CT Scan: Report Reviewed by me (Mild to moderate left renal collecting system or left ureteral dilatation again seen similar to prior study without findings to suggest left-sided urinary tract calculus, possibly on the basis of bladder outlet
obstruction or vesicoureteral reflux.)
Labs: Labs Reviewed by me
Old Records: Reviewed
Assessment/Plan
-
Assessment:
SUKUMAR on CKD
acute on chronic pain
Type 2 DM
c/f UTI
morbid obesity
bipolar disorder/hx of suicide attempt
pressure ulcer
glaucoma
Plan:
- Cr elevated from baseline 1.7-2.2 to 3.5 most recently
- moderate hydro noted on CT but this should not cause the level of kidney dysfunction we are seeing but with underlying infection maybe?
- UA with blood and bacteria, urine culture with GN bacilli. covering with cefepime. this needs to be redosed to 1g ever 24 hours based on her kidney function. monitor for development of neurotoxicity. please renally dose all medications
- obtain complement levels to r/o infectious GN
- low urine sodium noted, some concern for pre-renal. will give gentle fluids now.
- please continue to trend kidney function
- renally dose all meds
- avoid further nephrotoxins
- monitor urine output and weights
[2023-10-25 15:52] LABS: Glucose - Point of Care 135 mg/dl (70-99)
--- NOTE | 2023-10-25 16:24 | CM ---
transition manager reviewed patient's chart and met with patient and patient resides at [facility], patient has been living at shelter for about 2 years, patient with Right BKA, per Jolie nurse supervisor sample at [facility], patient
is assist of one person to pivot to w/c, able to self propel, independent with feeding, plan is to return to [facility] when stable.
Plan; Patient to return to [facility] when stable.
[2023-10-25] MEDS: LR 1000 IV (16:42)
[2023-10-25] MEDS: LAMICTAL 100 MG PO (16:43)
[2023-10-25] MEDS: LAMICTAL 50 MG PO (16:44)
[2023-10-25] MEDS: MIRAPEX 0.125 MG PO (16:44)
[2023-10-25] MEDS: ASPIR LOW (ENTERIC COATED) 81 MG PO (16:44)
[2023-10-25 21:07] LABS: Glucose - Point of Care 188 mg/dl (70-99)
[2023-10-25] MEDS: DESYREL 75 MG PO (21:09)
[2023-10-25] MEDS: ABILIFY 5 MG PO (21:10)
[2023-10-25] MEDS: XALATAN OPHTHALMIC SOLUTION 1 DROP BOTH EYES (21:11)
[2023-10-25] MEDS: NEURONTIN 100 MG PO (21:13)
[2023-10-26] VITALS (7 sets, daily range): BP systolic 120–148; BP diastolic 39–68; PULSE 62; O2SAT 93; BMI 39.7
[2023-10-26] MEDS: LR 1000 IV ×3 (03:10→23:57)
[2023-10-26] MEDS: STERILE WATER FOR INJECTION 10 ML IV ×2 (05:40→17:30)
[2023-10-26] MEDS: MAXIPIME 1000 MG IV ×2 (05:41→17:31)
[2023-10-26 08:34] LABS: Glucose - Point of Care 102 mg/dl (70-99)
[2023-10-26] MEDS: NOVOLOG FLEXPEN-HIGH RESISTANCE SC (08:39)
[2023-10-26] MEDS: ELIQUIS 5 MG PO ×2 (08:55→21:05)
[2023-10-26] MEDS: ATIVAN 1 MG PO ×2 (08:55→21:05)
[2023-10-26] MEDS: LINZESS 145 MCG PO (08:55)
[2023-10-26] MEDS: COREG 6.25 MG PO ×2 (08:55→21:04)
[2023-10-26] MEDS: ALPHAGAN P 0.15% EYE DROPS 1 DROP LEFT EYE ×2 (08:56→21:11)
[2023-10-26] MEDS: LANTUS 0.15 UNITS SC ×2 (08:56→21:06)
[2023-10-26] MEDS: COSOPT EYE DROPS 1 DROP LEFT EYE ×2 (08:57→21:11)
--- NOTE | 2023-10-26 09:16 | W.PN.URO.CBU ---
Today's Communication / Plan
-
Follow BMP
Await urine culture results
Assessment / Plan
-
SUKUMAR on CKD: likely multifactorial with possible high-pressure bladder/vesicoureteral reflux
GNR UTI
Blood cultures negative to date
Diagnosis
-
Date of Service: October 26, 2023
-
Patient Diagnosis:
Bilateral hydroureteronephrosis c/w vesicoureteral reflux
SUKUMAR on baseline CKD
Possible complicated UTI: urine growing GNR
Subjective
-
Feels better today
Little catheter bother
Objective
-
Vital Signs
Temp Pulse Resp BP Pulse Ox
97.4 F 82 18 136/62 98
10/26/23 03:15 10/26/23 08:55 10/26/23 03:15 10/26/23 08:55 10/26/23 03:15
Intake and Output
10/25/23 10/26/23 10/27/23
06:59 06:59 06:59
Intake Total 720 / 720 1560 / 1560
Output Total 300 / 300 1950 / 1950
Balance 420 / 420 -390 / -390
Intake:
Oral fluids 1560 / 1560
IV fluids (Total) 720 / 720
Output:
Urine, Hudson 300 / 300 1800 / 1800
Urine, Voided 150 / 150
Review of Systems
-
Constitutional: Fatigue
Respiratory: No Symptoms
Cardiac: No Symptoms
Abdomen/GI: No Symptoms
Physical Exam
-
General - well nourished, no acute distress
Abdomen - soft, non-tender, no CVAT
Genitalia - Hudson draining clear urine
[2023-10-26 10:19] LABS: Hematocrit 29.5 % (37.0-47.0); Hemoglobin 9.6 g/dL (12.0-16.0); Mean Corp Hgb Conc. 32.5 g/dL (33.0-37.0); Mean Corpuscular Hgb 27.8 pg (27.0-31.0); Mean Corpuscular Volume 85.5 fL (81.0-99.0); Mean Platelet Volume 10.3 fL (7.4-10.4); Platelet Count 205 10^3/uL (130-400); Red Blood Cell Count 3.45 10^6/uL (4.20-5.40); Red Cell Dist. Width 16.5 % (11.5-14.5); White Blood Cell Count 10.2 10^3/uL (4.8-10.8)
--- NOTE | 2023-10-26 11:14 | CM ---
manager copy spoke with admissions at [facility] and she confirmed that patient was able to get out of bed with assist of 1, and is requesting that field nurse case manager submit Auth to insurance for skilled placement.
[facility]

Tax ID [id number]
Dr. Loera

[facility]
Report [phone]
[2023-10-26 11:16] LABS: Blood Urea Nitrogen 71 mg/dl (7-17); Calcium 8.7 mg/dl (8.4-10.2); Carbon Dioxide 19 mmol/L (22-30); Chloride 109 mmol/L (98-107); Estimated Creatinine Clearance 24 ml/min; Glucose 136 mg/dl (70-99); Potassium 4.2 mmol/L (3.5-5.1); Sodium 140 mmol/L (135-145); eGFR 16.52
[2023-10-26 12:00] LABS: Glucose - Point of Care 158 mg/dl (70-99)
[2023-10-26] MEDS: NOVOLOG FLEXPEN-HIGH RESISTANCE 1 UNITS SC (12:07)
--- NOTE | 2023-10-26 14:49 | W.PN.NEPH.PH ---
Today's Communication / Plan
-
Continuing lactated Ringer's for another bag
Maintain Valles catheter
Assessment/Plan
-
Assessment:
SUKUMAR on CKD
acute on chronic pain
Type 2 DM
c/f UTI
morbid obesity
bipolar disorder/hx of suicide attempt
pressure ulcer
glaucoma
Plan:
- Cr elevated from baseline 1.7-2.2 to 3.5 most recently
-Creatinine down to 3 nonoliguric via Valles, hemodynamically stable
- moderate hydro noted on CT , nonoliguric via valles
- UA with blood and bacteria, urine culture with GN bacilli. covering with cefepime. this needs to be redosed to 1g ever 24 hours based on her kidney function. monitor for development of neurotoxicity. please renally dose all medications
- obtained complement levels to r/o infectious GN
- low urine sodium noted, some concern for pre-renal. will continue lactated Ringer's
- please continue to trend kidney function
- renally dose all meds
- avoid further nephrotoxins
- monitor urine output and weights
-
-
Date of Service: October 26, 2023
CC / HPI / ROS
-
Chief Complaint:
Acute kidney injury
History of Present Illness:
Creatinine improved to 3
Hemodynamically stay
Metabolic acidosis persist
Review of Systems:
Nonoliguric
Right AKA
No fevers or chills
Shortness of breath
Valles
Labs
-
Labs:
WBC 10.2 10^3/uL (4.8-10.8) 10/26/23 09:44
RBC 3.45 10^6/uL (4.20-5.40) L 10/26/23 09:44
Hgb 9.6 g/dL (12.0-16.0) L 10/26/23 09:44
Hct 29.5 % (37.0-47.0) L 10/26/23 09:44
Plt Count 205 10^3/uL (130-400) 10/26/23 09:44
Sodium 140 mmol/L (135-145) 10/26/23 09:44
Potassium 4.2 mmol/L (3.5-5.1) 10/26/23 09:44
Chloride 109 mmol/L (98-107) H 10/26/23 09:44
Carbon Dioxide 19 mmol/L (22-30) L 10/26/23 09:44
BUN 71 mg/dl (7-17) H 10/26/23 09:44
Creatinine 3.0 mg/dL (0.6-1.0) H 10/26/23 09:44
eGFR 16.52 10/26/23 09:44
Glucose 136 mg/dl (70-99) H 10/26/23 09:44
Calcium 8.7 mg/dl (8.4-10.2) 10/26/23 09:44
Albumin Cancelled 10/24/23 15:14
Physical Exam
-
Vital Signs:
Vital Signs
Temp Pulse Resp BP Pulse Ox
97.9 F 82 22 136/62 98
10/26/23 07:22 10/26/23 08:55 10/26/23 07:22 10/26/23 08:55 10/26/23 07:22
Cardiovascular:: Regular rate and rhythm
Respiratory:: Bilateral: Coarse
Lung Excursion:: Normal
Abdomen:: Nontender and Soft
Bowel Sounds:: Normal
Extremity Edema:: None: Bilateral: and None: Right: (AKA)
Valles Catheter: Yes
[2023-10-26] MEDS: PROZAC 40 MG PO (16:01)
[2023-10-26] MEDS: PROZAC 10 MG PO (16:02)
[2023-10-26 16:38] LABS: Glucose - Point of Care 230 mg/dl (70-99)
[2023-10-26] MEDS: NOVOLOG FLEXPEN-HIGH RESISTANCE 4 UNITS SC (17:29)
[2023-10-26] MEDS: LAMICTAL 100 MG PO (17:30)
[2023-10-26] MEDS: ASPIR LOW (ENTERIC COATED) 81 MG PO (17:30)
[2023-10-26] MEDS: MIRAPEX 0.125 MG PO (17:30)
[2023-10-26] MEDS: LAMICTAL 50 MG PO (17:30)
--- NOTE | 2023-10-26 18:07 | W.PN.HOSP.TC ---
Today's Communication/Plan
-
.
Assessment / Plan
Assessment / Plan
Physical Exam
General: Comfortable and Appears Chronically Ill
HEENT: Atraumatic and Other (poor dentition )
Respiratory: Decreased Breath Sounds
Cardiac: S1/S2
GI: Soft and Non Tender
Rectal: No Maroon Stools
Genito-urinary: Clear Urine
Musculoskeletal: No Cyanosis and Other (R BKA, Left forefoot amputation )
Skin: Warm; No Jaundice
Neuro: Awake and Other (followed commands. )
Psych: Calm, not anxious at times, ; No Agitated
68 female with left flank pain was found to have SUKUMAR
#Acute kidney injury on chronic kidney disease stage IIIb with metabolic acidosis --
Creatinine down to 3.0
Differential diagnosis include prerenal versus medication, contrast induced
Holding Entresto, Bumex, Farxiga
s/p IV fluid with sodium bicarbonate gtt, now on ringer lactate gtt
Hudson catheter for input output and possibility of retention/obstructive nephropathy, CAT scan reviewed
Avoid nephrotoxic.
No history of hematuria.
Pain control for left flank pain.
Appreciate urology and nephrology input
# Acute on chronic pain syndrome
Patient complains of left flank pain and lower back pain
Will continue with the Neurontin but adjust dose according to renal function
Continue with as needed oxycodone, Tylenol
# Leukocytosis. UTI, urine positive for now, await further result
Blood culture is pending.
Empiric IV antibiotic
Monitor temperature curve and WBC
No hypotension. No fever
CAT scan showed left lower atelectasis. No history of cough or hypoxia. Doubt pneumonia. But will follow closely
# History of paroxysmal atrial fibrillation--rate controlled and appears in sinus rhythm--continue Eliquis, carvedilol
#History of peripheral arterial disease/atherosclerotic cardiovascular disease--continue aspirin--patient with right BKA, left forefoot amputation
Vascular surgery Dr. Velázquez
#Type 2 diabetes mellitus with retinopathy and polyneuropathy--continue insulin with diabetic diet--Accu-Cheks with sliding scale insulin coverage
#Morbid obesity--affects all aspects of care
#Iron deficiency anemia--hemoglobin at baseline, 10--follow with hydration--continue iron supplements
#History of bipolar/anxiety with previous history of suicide attempt December 2021--hospitalized at [place]--continue trazodone, fluoxetine Abilify, Ativan.
Mood is cooperative
#History of connective tissue disease--noted--unclear what the connective tissue disorder is.
#History of radiculopathy with C6-C7, Cervicalgia
# Stage II sacral pressure ulcer, present on admission
# Hard hearing with history of glaucoma--continue eyedrops
# CODE STATUS--DNR, confirmed with .
DVT prophylaxis, on Eliquis
Total time spent to see the patient, examine the patient on the floor, review data and lab results, discuss treatment plan with patient, nursing staff around 57 minutes.
Anticipated Discharge: 24 - 48 hours
Subjective/Interval History
-
Date of Service: October 26, 2023
No complaints
Feels better today
Objective Data
-
Labs:
Laboratory Results
10/26/23
09:44
WBC 10.2
Hgb 9.6 L
Hct 29.5 L
Plt Count 205
Sodium 140
Potassium 4.2
Chloride 109 H
Carbon Dioxide 19 L
BUN 71 H
Creatinine 3.0 H
Glucose 136 H
Calcium 8.7
Vital Signs:
Vital Signs
Temp Pulse Resp BP Pulse Ox
97.8 F 65 20 124/50 92
10/26/23 15:15 10/26/23 15:15 10/26/23 15:15 10/26/23 15:15 10/26/23 15:15
I&O
10/25/23 10/26/23 10/27/23
06:59 06:59 06:59
Intake Total 720 / 720 1560 / 1560 240 / 240
Output Total 300 / 300 1950 / 1950
Balance 420 / 420 -390 / -390 240 / 240
[2023-10-26] MEDS: ABILIFY 5 MG PO (21:04)
[2023-10-26] MEDS: DESYREL 75 MG PO (21:04)
[2023-10-26] MEDS: NEURONTIN 100 MG PO (21:05)
[2023-10-26 21:11] LABS: Glucose - Point of Care 279 mg/dl (70-99)
[2023-10-26] MEDS: XALATAN OPHTHALMIC SOLUTION 1 DROP BOTH EYES (21:12)
[2023-10-26] MEDS: ROXICODONE 5 MG PO (21:19)
[2023-10-27 03:12] VITALS: BP 144/86
[2023-10-27] MEDS: MAXIPIME 1000 MG IV ×2 (05:55→17:41)
[2023-10-27] MEDS: STERILE WATER FOR INJECTION 10 ML IV ×2 (05:56→17:41)
[2023-10-27 06:00] VITALS: BMI 40.0
[2023-10-27 07:30] LABS: Glucose - Point of Care 122 mg/dl (70-99)
[2023-10-27 08:41] VITALS: BP 152/65
--- NOTE | 2023-10-27 08:54 | W.PN.HOSP.TC ---
Today's Communication/Plan
-
Will call micro to check urine culture, pending > 48 hours
Voiding trial today
will f/w BMP result
DC planning, seems pain and mentation are back to baseline.
Assessment / Plan
Assessment / Plan
Physical Exam
General: Comfortable and Appears Chronically Ill
HEENT: Atraumatic and Other (poor dentition )
Respiratory: Decreased Breath Sounds
Cardiac: S1/S2
GI: Soft and Non Tender
Rectal: No Maroon Stools
Genito-urinary: Clear Urine
Musculoskeletal: No Cyanosis and Other (R BKA, Left forefoot amputation )
Skin: Warm; No Jaundice
Neuro: Awake and Other (followed commands. )
Psych: Calm, not anxious at times, ; No Agitated
68 female with left flank pain was found to have SUKUMAR
#Acute kidney injury on chronic kidney disease stage IIIb with metabolic acidosis --
Creatinine down to 3.0, await today's lab
Differential diagnosis include prerenal versus medication, contrast induced
Holding Entresto, Bumex, Farxiga
s/p IV fluid with sodium bicarbonate gtt, off ringer lactate gtt
Hudson catheter for input output and possibility of retention/obstructive nephropathy, CAT scan reviewed , voiding trial today
Avoid nephrotoxic.
No history of hematuria.
Appreciate urology and nephrology input
# Acute on chronic pain syndrome
Pain is controlled now.
Patient complained of left flank pain and lower back pain
Continue with the Neurontin but adjusted dose according to renal function
Continue with as needed oxycodone, Tylenol
# Leukocytosis. UTI, urine positive for now, still pending?- await further result , will call micro today
Blood culture is NGTD
Empiric IV antibiotic
Monitored temperature curve and WBC
No hypotension. No fever
CAT scan showed left lower atelectasis. No history of cough or hypoxia. Doubt pneumonia.
# History of paroxysmal atrial fibrillation--rate controlled and appears in sinus rhythm--continue Eliquis, carvedilol
#History of peripheral arterial disease/atherosclerotic cardiovascular disease--continue aspirin--patient with right BKA, left forefoot amputation
Vascular surgery Dr. Velázquez
#Type 2 diabetes mellitus with retinopathy and polyneuropathy--continue insulin with diabetic diet--Accu-Cheks with sliding scale insulin coverage
#Morbid obesity--affects all aspects of care
#Iron deficiency anemia--hemoglobin at baseline, 10--follow with hydration--continue iron supplements
#History of bipolar/anxiety with previous history of suicide attempt December 2021--hospitalized at [place]--continue trazodone, fluoxetine Abilify, Ativan.
Mood is cooperative
#History of connective tissue disease--noted--unclear what the connective tissue disorder is.
#History of radiculopathy with C6-C7, Cervicalgia
# Stage II sacral pressure ulcer, present on admission
# Hard hearing with history of glaucoma--continue eyedrops
# CODE STATUS--DNR, confirmed with .
DVT prophylaxis, on Eliquis
Total time spent to see the patient, examine the patient on the floor, review data and lab results, discuss treatment plan with patient, nursing staff around 57 minutes.
Anticipated Discharge: 24 - 48 hours
Subjective/Interval History
-
Date of Service: October 27, 2023
No chest pain
No fevers
Objective Data
-
Labs:
Laboratory Results
10/27/23
06:00
Sodium Pending
Potassium Pending
Chloride Pending
Carbon Dioxide Pending
BUN Pending
Creatinine Pending
Glucose Pending
Calcium Pending
Vital Signs:
Vital Signs
Temp Pulse Resp BP Pulse Ox
97.6 F 69 18 144/86 96
10/27/23 03:12 10/27/23 03:12 10/27/23 03:12 10/27/23 03:12 10/27/23 03:12
I&O
10/26/23 10/27/23 10/28/23
06:59 06:59 06:59
Intake Total 1560 / 1560 1080 / 1080
Output Total 1950 / 1950 4850 / 4850
Balance -390 / -390 -3770 / -3770
[2023-10-27 09:00] VITALS: BMI 40.0
[2023-10-27] MEDS: COSOPT EYE DROPS 1 DROP LEFT EYE (09:00)
[2023-10-27] MEDS: ELIQUIS 5 MG PO ×2 (09:00→21:08)
[2023-10-27] MEDS: COREG 6.25 MG PO ×2 (09:00→21:08)
[2023-10-27] MEDS: NOVOLOG FLEXPEN-HIGH RESISTANCE SC ×2 (09:00→12:41)
[2023-10-27] MEDS: LANTUS 0.15 UNITS SC ×2 (09:00→21:09)
[2023-10-27] MEDS: LINZESS 145 MCG PO (09:00)
[2023-10-27] MEDS: ALPHAGAN P 0.15% EYE DROPS 1 DROP LEFT EYE (09:00)
[2023-10-27] MEDS: ATIVAN 1 MG PO ×2 (09:13→21:06)
[2023-10-27] MEDS: LR 1000 IV (09:14)
--- NOTE | 2023-10-27 10:31 | W.PN.URO.CBU ---
Today's Communication / Plan
-
Hudson removed today: consider replacement should improvement in renal function stall: patient might a high-pressure bladder with vesicoureteral reflux contributing to her SUKUMAR
Assessment / Plan
-
SUKUMAR on CKD: likely multifactorial with possible high-pressure bladder/vesicoureteral reflux
GNR UTI
Blood cultures negative to date
Diagnosis
-
Date of Service: October 27, 2023
-
Patient Diagnosis:
Bilateral hydroureteronephrosis c/w vesicoureteral reflux
SUKUMAR on baseline CKD
Possible complicated UTI: urine growing GNR
Subjective
-
Feels better
Hudson was removed this AM: has not yet voided
Objective
-
Vital Signs
Temp Pulse Resp BP Pulse Ox
98.2 F 73 18 152/65 94
10/27/23 08:41 10/27/23 08:41 10/27/23 08:41 10/27/23 08:41 10/27/23 08:41
Intake and Output
10/26/23 10/27/23 10/28/23
06:59 06:59 06:59
Intake Total 1560 / 1560 1080 / 1080
Output Total 1950 / 1950 4850 / 4850
Balance -390 / -390 -3770 / -3770
Intake:
Oral fluids 1560 / 1560 1080 / 1080
Output:
Urine, Hudson 1800 / 1800 4850 / 4850
Urine, Voided 150 / 150
Laboratory Results
10/26/23 09:44
Review of Systems
-
Constitutional: Fatigue
Respiratory: No Symptoms
Cardiac: No Symptoms
Abdomen/GI: No Symptoms
Physical Exam
-
General - well nourished, no acute distress
Abdomen - soft, non-tender
Counseling
-
Consider Hudson replacement shouild renal function not continue to improve
[2023-10-27 10:54] LABS: Blood Urea Nitrogen 52 mg/dl (7-17); Calcium 8.9 mg/dl (8.4-10.2); Carbon Dioxide 22 mmol/L (22-30); Chloride 108 mmol/L (98-107); Estimated Creatinine Clearance 36 ml/min; Glucose 107 mg/dl (70-99); Potassium 3.9 mmol/L (3.5-5.1); Sodium 140 mmol/L (135-145); eGFR 26.88
[2023-10-27 12:37] LABS: Glucose - Point of Care 122 mg/dl (70-99)
[2023-10-27 12:39] VITALS: BP 166/77
[2023-10-27] MEDS: PROZAC 40 MG PO (12:47)
[2023-10-27] MEDS: PROZAC 10 MG PO (12:47)
--- NOTE | 2023-10-27 13:43 | W.PN.NEPH.PH ---
Today's Communication / Plan
-
- hold fluids
Assessment/Plan
-
Assessment:
SUKUMAR on CKD
acute on chronic pain
Type 2 DM
c/f UTI
morbid obesity
bipolar disorder/hx of suicide attempt
pressure ulcer
glaucoma
Plan:
- Cr elevated from baseline 1.7-2.2 to 2.0 most recently, peak 3.5
- moderate hydro noted on CT , nonoliguric via valles. removed valles on 10/26.
- UA with blood and bacteria, urine culture with GN bacilli. covering with cefepime. monitor for development of neurotoxicity. please renally dose all medications
- obtained complement levels to r/o infectious GN, pending?
- patient significantly improved with LR, indicating likely pre-renal disease. will hold fluids now
- please continue to trend kidney function
- renally dose all meds
- avoid further nephrotoxins
- monitor urine output and weights
-
-
Date of Service: October 27, 2023
CC / HPI / ROS
-
Chief Complaint:
Acute kidney injury
History of Present Illness:
Creatinine improved to 2
Hemodynamically stay
Metabolic acidosis persist
Review of Systems:
Nonoliguric
Right AKA
No fevers or chills
Shortness of breath
Valles removed 10/26
Labs
-
Labs:
WBC 10.2 10^3/uL (4.8-10.8) 10/26/23 09:44
RBC 3.45 10^6/uL (4.20-5.40) L 10/26/23 09:44
Hgb 9.6 g/dL (12.0-16.0) L 10/26/23 09:44
Hct 29.5 % (37.0-47.0) L 10/26/23 09:44
Plt Count 205 10^3/uL (130-400) 10/26/23 09:44
Sodium 140 mmol/L (135-145) 10/27/23 09:03
Potassium 3.9 mmol/L (3.5-5.1) 10/27/23 09:03
Chloride 108 mmol/L (98-107) H 10/27/23 09:03
Carbon Dioxide 22 mmol/L (22-30) 10/27/23 09:03
BUN 52 mg/dl (7-17) H 10/27/23 09:03
Creatinine 2.0 mg/dL (0.6-1.0) H 10/27/23 09:03
eGFR 26.88 10/27/23 09:03
Glucose 107 mg/dl (70-99) H 10/27/23 09:03
Calcium 8.9 mg/dl (8.4-10.2) 10/27/23 09:03
Albumin Cancelled 10/24/23 15:14
Physical Exam
-
Vital Signs:
Vital Signs
Temp Pulse Resp BP Pulse Ox
99.6 F 79 20 166/77 94
10/27/23 12:39 10/27/23 12:39 10/27/23 12:39 10/27/23 12:39 10/27/23 12:39
Cardiovascular:: Regular rate and rhythm
Respiratory:: Bilateral: Coarse
Lung Excursion:: Normal
Abdomen:: Nontender and Soft
Bowel Sounds:: Normal
Extremity Edema:: None: Bilateral: (R AKA)
Valles Catheter: No
[2023-10-27 15:55] VITALS: BP 169/74
--- NOTE | 2023-10-27 16:09 | CM ---
Patient to return to [facility] when stable, will need Auth to return to facility.
Nohemy Segura

Tax ID [id number]
Dr. Loera

Nohemy
Report [phone]
[2023-10-27] MEDS: NOVOLOG FLEXPEN-HIGH RESISTANCE 2 UNITS SC (17:38)
[2023-10-27 17:39] LABS: Glucose - Point of Care 182 mg/dl (70-99)
[2023-10-27] MEDS: LAMICTAL 50 MG PO (17:39)
[2023-10-27] MEDS: ASPIR LOW (ENTERIC COATED) 81 MG PO (17:40)
[2023-10-27] MEDS: LAMICTAL 100 MG PO (17:40)
[2023-10-27] MEDS: MIRAPEX 0.125 MG PO (17:51)
[2023-10-27 19:00] VITALS: BP 149/72
[2023-10-27] MEDS: NEURONTIN 100 MG PO (21:04)
[2023-10-27] MEDS: ABILIFY 5 MG PO (21:06)
[2023-10-27] MEDS: DESYREL 75 MG PO (21:06)
[2023-10-27 21:07] LABS: Glucose - Point of Care 198 mg/dl (70-99)
[2023-10-27] MEDS: XALATAN OPHTHALMIC SOLUTION BOTH EYES (21:23)
[2023-10-27] MEDS: ALPHAGAN P 0.15% EYE DROPS LEFT EYE (21:23)
[2023-10-27] MEDS: COSOPT EYE DROPS LEFT EYE (21:23)
[2023-10-27 23:00] VITALS: BP 160/57
[2023-10-28 03:00] VITALS: BP 144/76
[2023-10-28] MEDS: MAXIPIME 1000 MG IV (05:09)
[2023-10-28] MEDS: STERILE WATER FOR INJECTION 10 ML IV (05:19)
[2023-10-28 06:00] VITALS: BMI 39.8
[2023-10-28 07:12] LABS: Glucose - Point of Care 92 mg/dl (70-99)
[2023-10-28 07:30] VITALS: BP 122/74
[2023-10-28] MEDS: NOVOLOG FLEXPEN-HIGH RESISTANCE SC ×3 (08:14→16:41)
--- NOTE | 2023-10-28 09:33 | W.PN.HOSP.TC ---
Today's Communication/Plan
-
dc
Assessment / Plan
Assessment / Plan
Physical Exam
General: Comfortable and Appears Chronically Ill
HEENT: Atraumatic and Other (poor dentition )
Respiratory: Decreased Breath Sounds
Cardiac: S1/S2
GI: Soft and Non Tender
Rectal: No Maroon Stools
Genito-urinary: Clear Urine
Musculoskeletal: No Cyanosis and Other (R BKA, Left forefoot amputation )
Skin: Warm; No Jaundice
Neuro: Awake and Other (followed commands. )
Psych: Calm, not anxious at times, ; No Agitated
68 female with left flank pain was found to have SUKUMAR
#Acute kidney injury on chronic kidney disease stage IIIb with metabolic acidosis --
Creatinine down to 2.0, await today's lab
Differential diagnosis include prerenal versus medication, contrast induced
Holding Entresto, Bumex, Farxiga, will ask nephrology about whether to resume or not.
s/p IV fluid with sodium bicarbonate gtt, off ringer lactate gtt
Hudson catheter for input output and possibility of retention/obstructive nephropathy, CAT scan reviewed , voiding trial today
Avoid nephrotoxic.
No history of hematuria.
Appreciate urology and nephrology input
# Acute on chronic pain syndrome
Pain is controlled now.
Patient complained of left flank pain and lower back pain
Continue with the Neurontin but adjusted dose according to renal function
Continue with as needed oxycodone, Tylenol
# Leukocytosis. proteius mirabilis UTI, jones sensitive.
Blood culture is NGTD
Given empiric IV antibiotic, will dc on Ceftin, last dose 10/30 t finish 7 days course.
Monitored temperature curve and WBC
No hypotension. No fever
CAT scan showed left lower atelectasis. No history of cough or hypoxia. Doubt pneumonia.
# History of paroxysmal atrial fibrillation--rate controlled and appears in sinus rhythm--continue Eliquis, carvedilol
#History of peripheral arterial disease/atherosclerotic cardiovascular disease--continue aspirin--patient with right BKA, left forefoot amputation
Vascular surgery Dr. Velázquez
#Type 2 diabetes mellitus with retinopathy and polyneuropathy--continue insulin with diabetic diet--Accu-Cheks with sliding scale insulin coverage
#Morbid obesity--affects all aspects of care
#Iron deficiency anemia--hemoglobin at baseline, 10--follow with hydration--continue iron supplements
#History of bipolar/anxiety with previous history of suicide attempt December 2021--hospitalized at [place]--continue trazodone, fluoxetine Abilify, Ativan.
Mood is cooperative
#History of connective tissue disease--noted--unclear what the connective tissue disorder is.
#History of radiculopathy with C6-C7, Cervicalgia
# Stage II sacral pressure ulcer, present on admission
# Hard hearing with history of glaucoma--continue eyedrops
# CODE STATUS--DNR, confirmed with .
DVT prophylaxis, on Eliquis
Total discharge time spent to see the patient, examine the patient on the floor, review data and lab results, discuss discharge plan with patient, nursing staff around 67 minutes.
Anticipated Discharge: Today
Subjective/Interval History
-
Date of Service: October 28, 2023
No chest pain
No sob
She wants to leave hospital today
Objective Data
-
Labs:
Laboratory Results
10/28/23
08:48
WBC Pending
Hgb Pending
Hct Pending
Plt Count Pending
Sodium Pending
Potassium Pending
Chloride Pending
Carbon Dioxide Pending
BUN Pending
Creatinine Pending
Glucose Pending
Calcium Pending
Vital Signs:
Vital Signs
Temp Pulse Resp BP Pulse Ox
99.0 F 79 18 122/74 96
10/28/23 07:30 10/28/23 07:30 10/28/23 07:30 10/28/23 07:30 10/28/23 07:30
I&O
10/27/23 10/28/23 10/29/23
06:59 06:59 06:59
Intake Total 1080 / 1080 1440 / 1440
Output Total 4850 / 4850
Balance -3770 / -3770 1440 / 1440
[2023-10-28] MEDS: COREG 6.25 MG PO (09:40)
[2023-10-28] MEDS: ELIQUIS 5 MG PO (09:40)
[2023-10-28] MEDS: ATIVAN 1 MG PO (09:40)
[2023-10-28] MEDS: LINZESS 145 MCG PO (09:41)
[2023-10-28] MEDS: COSOPT EYE DROPS 1 DROP LEFT EYE (09:41)
[2023-10-28] MEDS: ALPHAGAN P 0.15% EYE DROPS 1 DROP LEFT EYE (09:41)
[2023-10-28] MEDS: LANTUS 0.15 UNITS SC (09:44)
[2023-10-28 10:10] LABS: Hematocrit 30.3 % (37.0-47.0); Hemoglobin 9.9 g/dL (12.0-16.0); Mean Corp Hgb Conc. 32.7 g/dL (33.0-37.0); Mean Corpuscular Hgb 27.9 pg (27.0-31.0); Mean Corpuscular Volume 85.4 fL (81.0-99.0); Platelet Count 205 10^3/uL (130-400); Red Blood Cell Count 3.55 10^6/uL (4.20-5.40); Red Cell Dist. Width 16.5 % (11.5-14.5); White Blood Cell Count 12.6 10^3/uL (4.8-10.8)
[2023-10-28 11:08] LABS: Glucose - Point of Care 145 mg/dl (70-99)
--- NOTE | 2023-10-28 11:11 | W.PN.URO.CBU ---
Today's Communication / Plan
-
if syable and ct=reatinine stable then home f ok by hospita;ist
Assessment / Plan
-
SUKUMAR on CKD: likely multifactorial with possible high-pressure bladder/vesicoureteral reflux
GNR UTIawait creatinine butif stable home whn ok by hop[sital;ist but if creatinine up significantl may need valles to lower pressure voiding
Diagnosis
-
Date of Service: October 28, 2023
-
Patient Diagnosis:
Post Op Day:
Patient Diagnosis:
Bilateral hydroureteronephrosis c/w vesicoureteral reflux
SUKUMAR on baseline CKD
Possible complicated UTI: urine growing GNR
Subjective
-
feels great
Objective
-
Vital Signs
Temp Pulse Resp BP Pulse Ox
99.0 F 79 18 122/74 96
10/28/23 07:30 10/28/23 07:30 10/28/23 07:30 10/28/23 07:30 10/28/23 07:30
Intake and Output
10/27/23 10/28/23 10/29/23
06:59 06:59 06:59
Intake Total 1080 / 1080 1440 / 1440
Output Total 4850 / 4850
Balance -3770 / -3770 1440 / 1440
Intake:
Oral fluids 1080 / 1080 1440 / 1440
Output:
Urine, Valles 4850 / 4850
Other:
How many times incontinent 3
SATURATED amount urine
Laboratory Results
10/28/23 08:48
Review of Systems
-
: No Symptoms
Physical Exam
-
General - well developed, well nourished, no acute distress
Chest - clear bilaterally
Abdomen - soft, non-tender, positive bowel sounds, no CVAT, no incisional pain or distention
Genitalia - normal
Rectal - normal
Skin - warm & dry with no rash
Neuro - AOx3, no motor deficits
Extremities - no clubbing, no cyanosis, no edema
Incision - clean, dry
Dressing - clean, dry, intact
[2023-10-28 11:35] LABS: Blood Urea Nitrogen 39 mg/dl (7-17); Calcium 8.9 mg/dl (8.4-10.2); Carbon Dioxide 20 mmol/L (22-30); Chloride 108 mmol/L (98-107); Estimated Creatinine Clearance 45 ml/min; Glucose 109 mg/dl (70-99); Potassium 3.8 mmol/L (3.5-5.1); Sodium 139 mmol/L (135-145); eGFR 35.13
--- NOTE | 2023-10-28 11:45 | CM ---
Chart reviewed and patient to return to [facility] when stable, pain will need Auth from insurance.
Plan; Patient to return to [facility] when stable, will need Auth.
[facility]

Tax ID [id number]
Dr. Loera

Nohemy
Report [phone]
[2023-10-28 12:29] VITALS: BP 122/65
[2023-10-28 12:40] VITALS: BP 122/65
--- NOTE | 2023-10-28 13:05 | PN.CDI ---
Addendum entered and electronically signed by Rhea Andrade MD 10/28/23 14:03:
Acute Metabolic Encephalopathy,resolved
Original Note:
CDI
- -
CDI:
Physician Documentation Request
Admit Date: 10/24/23 18:07
Dear Doctor Lupe,
Clinical Indicators:
Patient admitted with SUKUMAR.
10/24 Urology consult, 'She is lethargic and ill-appearing. She is engaging just minimally in our conversation.'
10/26 PN , '...seems pain and mentation are back to baseline.'
Proteus UTI POA, treated with Cefepime IV.
Creatinine trend:
10/24/23 10/25/23 10/28/23
15:14 10:32 08:48
Creatinine 3.2 H 3.5 H 1.6 H
Based on the above, could you clarify which, if any of the following, is the most likely etiology of the confusion/altered mental status:
Acute Metabolic Encephalopathy,resolved
Lethargy only,resolved
Other
Use of terms such as suspected, likely, concern for, or probable (associated with a specific diagnosis that is being evaluated, monitored, or treated as if it exists) are acceptable and can be coded in the inpatient setting, when documented at the
time of discharge.
Thank you,
Natalie Monteiro RN BSN
CDI Specialist
available via tiger text
Please use your independent medical judgment in providing your response.
--- NOTE | 2023-10-28 13:23 | W.PN.NEPH.PH ---
Today's Communication / Plan
-
follow BMP
Assessment/Plan
-
Assessment:
SUKUMAR on CKD
acute on chronic pain
Type 2 DM
c/f UTI
morbid obesity
bipolar disorder/hx of suicide attempt
pressure ulcer
glaucoma
Plan:
follow BMP
dc planning
-
-
Date of Service: October 28, 2023
CC / HPI / ROS
-
Chief Complaint:
Acute kidney injury
History of Present Illness:
SUKUMAR/Cr down to 1.6
Hemodynamically stay
Metabolic acidosis persist 20
Review of Systems:
Nonoliguric
Right AKA
No fevers or chills
Hudson removed 10/26
Labs
-
Labs:
WBC 12.6 10^3/uL (4.8-10.8) H 10/28/23 08:48
RBC 3.55 10^6/uL (4.20-5.40) L 10/28/23 08:48
Hgb 9.9 g/dL (12.0-16.0) L 10/28/23 08:48
Hct 30.3 % (37.0-47.0) L 10/28/23 08:48
Plt Count 205 10^3/uL (130-400) 10/28/23 08:48
Sodium 139 mmol/L (135-145) 10/28/23 08:48
Potassium 3.8 mmol/L (3.5-5.1) 10/28/23 08:48
Chloride 108 mmol/L (98-107) H 10/28/23 08:48
Carbon Dioxide 20 mmol/L (22-30) L 10/28/23 08:48
BUN 39 mg/dl (7-17) H 10/28/23 08:48
Creatinine 1.6 mg/dL (0.6-1.0) H 10/28/23 08:48
eGFR 35.13 10/28/23 08:48
Glucose 109 mg/dl (70-99) H 10/28/23 08:48
Calcium 8.9 mg/dl (8.4-10.2) 10/28/23 08:48
Albumin Cancelled 10/24/23 15:14
Physical Exam
-
Vital Signs:
Vital Signs
Temp Pulse Resp BP Pulse Ox
98.5 F 66 18 122/65 94
10/28/23 12:29 10/28/23 12:29 10/28/23 12:29 10/28/23 12:29 10/28/23 12:29
Cardiovascular:: Regular rate and rhythm
Respiratory:: Bilateral: Coarse
Lung Excursion:: Normal
Abdomen:: Nontender and Soft
Bowel Sounds:: Normal
Extremity Edema:: +1: Bilateral:
[2023-10-28] MEDS: PROZAC 40 MG PO (14:17)
[2023-10-28] MEDS: PROZAC 10 MG PO (14:17)
[2023-10-28 16:00] VITALS: BP 148/81
--- NOTE | 2023-10-28 16:51 | W.DCSUMMARY ---
Discharge Summary
Discharge Data
Date of Admission: 10/24/23
Date of Discharge: 10/28/23
-
Pending Results: No
Hospital Course
68 years old female was brought in from senior living due to weakness, poor oral intake. Patient was found to have acute kidney injury, metabolic acidosis and toxic metabolic encephalopathy. Urine was cloudy. Urine culture came positive for
Proteus mirabilis, pansensitive infection. Patient had history of chronic kidney disease stage IIIb. She received intravenous fluid, intravenous antibiotic. Hudson catheter was placed. Etiology of acute kidney injury thought to be combination of
prerenal, medications induced with possible high pressure bladder/vesicoureteral reflux. Patient was followed by nephrology and urology doctors. Creatinine on admission was 3.2. Few of her medications were held including diuretics. Creatinine
came down to 1.6. Hudson catheter was removed and she was able to void well. She was started back on her medications. She tolerated her medications with no hypotension. She was advised to repeat blood work in 5 days. Blood culture did not show
any growth. Gabapentin dose was renally adjusted and reduced to avoid further lethargy. She was given oral antibiotic to finish course of treatment for urinary tract infection. She remained hemodynamically stable and was discharged back to
senior living in a stable condition. Patient was advised to follow-up with nephrology and urology doctors in the office.
Discharge Plan
-
Patient Disposition: Skilled Nursing/SNF
Discharge Diagnosis/Procedures: cute kidney injury on chronic kidney disease stage IIIb with metabolic acidosis. Adjusted doses of her medications as Gabapentin and pre-sandra insulin. Creatinine upon discharge at 1.6. Repeat BMP in 5 days. Follow
with nephrology.
Leukocytosis. Proteus mirabilis UTI, jones sensitive.
Toxic metabolic encephalopathy, resolved.
Radiographic evidence of bilateral hydroureteronephrosis consistent with possible vesicoureteral reflux from high pressure
bladder. Monitor for retention, follow with urology in the office.
Diet: As tolerated and Diabetic, Carb Controlled
Activity Restrictions/Additional Instructions:
Wound Care Instructions
Sacrum: clean with soap and water, barrier cream to small open area daily and prn soilage.
Air cushion under sacrum, can take upon discharge.
Follow up at wound care center if does not heal, call for an appointment.
Referrals:
Diogenes Moses DO [Active] - in two to four weeks
Paulo Loera DO [Family Provider] -
Marvin Sethi MD [Active] - in two to four weeks
Prescriptions:
New
cefuroxime axetil 250 mg Tablet
250 mg PO BID Qty: 6 0RF
gabapentin 100 mg Capsule
100 mg PO HS Qty: 30 0RF
Continued
trazodone 50 MG tablet
75 mg PO HS
insulin aspart U-100 [Novolog FlexPen U-100 Insulin] 300 UNITS/3 ML insulin pen
0 - 12 sliding scale dose SC MEALS
Rx Instructions:
Sliding Scale: if 151-200= 2u; 201-250= 4u; 251-300= 6u; 301-350= 8u; 351-400= 10u; >400= 12u
fluoxetine 40 mg Capsule
40 mg PO DAILY@1430
Rx Instructions:
To be given with Fluoxetine 10mg to equal prescribed dose of 50mg daily.
lamotrigine [Lamictal] 150 mg Tablet
150 mg PO QPM
atorvastatin 80 mg tablet
80 mg PO HS
acetaminophen 325 mg Tablet
650 mg PO Q4H MDD 3000 mg PRN (Reason: mild pain/fever >100.4)
lidocaine 4 % Adhesive Patch,Medicated
1 patch TOPICAL DAILYPRN PRN (Reason: left lateral shoulder)
diclofenac sodium 1 % Gel
2 g TOPICAL BID
latanoprost [Xalatan] 0.005 % Drops
1 drp BOTH EYES HS
loperamide [Imodium A-D] 2 mg Tablet
2 mg PO Q6HPRN PRN (Reason: diarrhea)
bisacodyl 10 mg Suppository
[address] DAILYPRN PRN (Reason: no BM 3 days, if MOM ineffective)
Patient Comments:
Greater than 8 days ago per Skilled Nursing
ferrous sulfate [iron] 325 mg (65 mg iron) Tablet
325 mg PO MOWEFR
Fleet Enema 19-7 gram/118 mL Enema
[address] DAILY PRN (Reason: no results from/refuse suppository)
Patient Comments:
Greater than 8 days per Skilled Nursing
lorazepam [Ativan] 1 mg Tablet
1 mg PO BID
fluoxetine 10 mg Capsule
10 mg PO DAILY@1430
Rx Instructions:
To be given w/ Fluoxetine 40mg to equal prescribed dose of 50mg daily.
ondansetron 4 mg tablet,disintegrating
4 mg PO Q6HPRN PRN (Reason: nausea/vomiting)
carvedilol 6.25 MG tablet
6.25 mg PO BID
aripiprazole [Abilify] 5 mg Tablet
5 mg PO HS
insulin glargine [Lantus Solostar U-100 Insulin] 100 unit/mL (3 mL) Insulin Pen
20 unit SC BID
Jardiance 25 mg Tablet
25 mg PO DAILY
oxycodone 5 mg Capsule
5 mg PO Q8HPRN PRN (Reason: Acute pain)
cetirizine 10 mg Capsule
10 mg PO QPM
bumetanide 1 mg Tablet
1 mg PO BID
apixaban 5 mg Tablet
5 mg PO BID
pramipexole 0.125 mg Tablet
0.125 mg PO QPM
aspirin 81 mg Tablet,Delayed Release (Dr/Ec)
81 mg PO QPM
Entresto 24-26 mg Tablet
1 tab PO BID
brimonidine 0.15 % Drops
1 drp LEFT EYE Q12H
omeprazole 40 mg Capsule,Delayed Release(Dr/Ec)
40 mg PO DAILY
dorzolamide-timolol 22.3-6.8 mg/mL Drops
1 drp LEFT EYE BID
fluocinolone 0.01 % Solution
1 applic TOPICAL DAILY
Patient Comments:
10/24/23: left parietal scalp and right posterior neck
Linzess 145 mcg Capsule
145 mcg PO DAILY
Patient Comments:
10/24/23: Note from 10/19/23, trial dosage, if diarrhea go to 72mcg, if constipation occurs go to 290mcg
Changed
insulin aspart U-100 [Novolog U-100 Insulin aspart] 100 unit/mL Solution
7 unit SC MEALS Qty: 0 0RF
Discontinued
gabapentin 300 mg Capsule
300 mg PO QPM
Discharge Orders:
Discharge Patient (As Directed); Ordered 10/28/23
Ordered By: Rhea Andrade
Discharge Date and Time
Discharge Date/Time: 10/28/23 19:34
Print Language: ECUADOREAN
[2023-10-28] MEDS: ASPIR LOW (ENTERIC COATED) 81 MG PO (17:38)
[2023-10-28] MEDS: LAMICTAL 100 MG PO (17:38)
[2023-10-28] MEDS: MIRAPEX 0.125 MG PO (17:38)
[2023-10-28] MEDS: LAMICTAL 50 MG PO (17:38)
[2023-10-28 19:26] VITALS: BP 157/75
== END 2023-10-28 19:34 | DRG 682 ==
LOC: 4 WEST ACU 18:07
PROVIDERS: ADMITTING PHYSICIAN Internal Medicine; CONSULT PHYSICIAN Specialist; CONSULT PHYSICIAN Student in an Organized Health Care Education/Training Program; EMERGENCY PHYSICIAN Student in an Organized Health Care Education/Training Program; FAMILY PHYSICIAN Student in an Organized Health Care Education/Training Program
DX: N17.9 Acute kidney failure, unspecified (principal); G92.8 Other toxic encephalopathy; E87.20 Acidosis, unspecified; I13.0 Hypertensive heart and chronic kidney disease with heart failure and stage 1 through stage 4 chronic kidney disease, or unspecified chronic kidney disease; J98.11 Atelectasis; N18.32 Chronic kidney disease, stage 3b; E11.22 Type 2 diabetes mellitus with diabetic chronic kidney disease; N13.6 Pyonephrosis; B96.4 Proteus (mirabilis) (morganii) as the cause of diseases classified elsewhere; F31.9 Bipolar disorder, unspecified; L89.152 Pressure ulcer of sacral region, stage 2; E66.01 Morbid (severe) obesity due to excess calories; Z68.39 Body mass index [BMI] 39.0-39.9, adult; Z79.4 Long term (current) use of insulin; Z91.51 Personal history of suicidal behavior; Z89.511 Acquired absence of right leg below knee
CPT/HCPCS: 74176; 80048; 81003; 81015; 82962; 83036; 84156; 84300; 85025; 85027; 87040; 87077; 87086; 87186; 96361; 96374; 97163; 97166; 97530; 99285; J7030

== ENCOUNTER → 2023-11-18 14:46 | Outpatient (REF) | payer MEDICARE, OTHER, SELFPAY | LOC: RAD 14:46 | PROVIDERS: ATTENDING PHYSICIAN Surgery Vascular Surgery; FAMILY PHYSICIAN Student in an Organized Health Care Education/Training Program | DX: I73.9 Peripheral vascular disease, unspecified (principal) | CPT/HCPCS: 93922; 93925 ==

== ENCOUNTER → 2023-11-29 12:07 | Outpatient (REF) | payer MEDICARE, OTHER, SELFPAY ==
[2023-11-29 12:38] LABS: % Basophils 0.5 % (0-2); % Eosinophils 0.6 % (0-6); % Immature Granulocytes 0.3 % (0-0.5); % Lymphocytes 23.3 % (20.5-51.1); % Monocytes 4.4 % (1.7-9.3); % Neutrophils 70.9 % (42.2-75.2); Absolute Basophils 0.1 10^3/uL (0-0.2); Absolute Eosinophils 0.1 10^3/uL (0-0.7); Absolute Lymphocytes 2.2 10^3/uL (1.2-3.4); Absolute Monocytes 0.4 10^3/uL (0.1-0.6); Absolute Neutrophils 6.6 10^3/uL (1.4-6.5); Hematocrit 35.5 % (37.0-47.0); Hemoglobin 11.3 g/dL (12.0-16.0); Mean Corp Hgb Conc. 31.8 g/dL (33.0-37.0); Mean Corpuscular Hgb 27.2 pg (27.0-31.0); Mean Corpuscular Volume 85.3 fL (81.0-99.0); Mean Platelet Volume 11.3 fL (7.4-10.4); Nucleated Red Blood Cells % 0 %; Platelet Count 179 10^3/uL (130-400); Red Blood Cell Count 4.16 10^6/uL (4.20-5.40); Red Cell Dist. Width 15.2 % (11.5-14.5); White Blood Cell Count 9.3 10^3/uL (4.8-10.8)
[2023-11-29 12:45] LABS: Albumin 3.8 g/dl (3.5-5.0); Blood Urea Nitrogen 49 mg/dl (7-17); Calcium 9.1 mg/dl (8.4-10.2); Carbon Dioxide 24 mmol/L (22-30); Chloride 104 mmol/L (98-107); Glucose 223 mg/dl (70-99); Phosphorus 4.5 mg/dl (2.5-4.5); Potassium 4.6 mmol/L (3.5-5.1); Sodium 140 mmol/L (135-145)
[2023-11-29 12:54] LABS: Total Iron Binding Capacity 274 ug/dl (265-497)
[2023-11-29 13:01] LABS: NT-proBNP 1420 pg/ml
[2023-11-29 13:12] LABS: Protein/creatinine Ratio 1.2; Urine Protein 39 mg/dl
[2023-11-29 13:15] LABS: Microalbumin, Random Urine 13.6 mg/dl (0.6-1.7)
[2023-12-02 10:09] LABS: Albumin 3.56 g/dL (3.75-5.01); Alpha 1 Globulin 0.31 g/dL (0.19-0.46); Alpha 2 Globulin 0.82 g/dL (0.48-1.05); Free Kappa Light Chains,Quant 48.88 mg/L (3.30-19.40); Free Lambda Light Chains,Quant 37.52 mg/L (5.71-26.30); IgA 143 mg/dL (68-408); IgG 855 mg/dL (768-1632); IgM 50 mg/dL (35-263); Immunofixation Electrophoresis IFE Done; Total Protein-Electrophoresis 6.1 g/dL (6.3-8.2)
== END ==
LOC: OLABN 12:07
PROVIDERS: ATTENDING PHYSICIAN Student in an Organized Health Care Education/Training Program
DX: N04.9 Nephrotic syndrome with unspecified morphologic changes (principal); N13.2 Hydronephrosis with renal and ureteral calculous obstruction; N18.30 Chronic kidney disease, stage 3 unspecified
CPT/HCPCS: 36415; 80069; 82043; 82570; 82784; 83521; 83550; 83880; 83970; 84155; 84156; 84165; 85025; 86334; 86335

== ENCOUNTER → 2024-01-09 10:19 | Outpatient (REF) | payer OTHER, SELFPAY ==
[2024-01-09 10:53] LABS: Hemoglobin 11.3 g/dL (12.0-16.0)
[2024-01-09 13:29] LABS: Hematocrit 33.7 % (37.0-47.0)
== END ==
LOC: OLABN 10:19
PROVIDERS: ATTENDING PHYSICIAN Student in an Organized Health Care Education/Training Program
DX: D63.1 Anemia in chronic kidney disease (principal)
CPT/HCPCS: 36415; 85014; 85018

== ENCOUNTER 2024-01-27 06:11 | Day surgery (SDC) | payer OTHER, SELFPAY ==
[2024-01-27 08:08] VITALS: BMI 41.6
[2024-01-27 08:09] VITALS: BMI 41.6
[2024-01-27 08:09] LABS: Glucose - Point of Care 217 mg/dl (70-99)
[2024-01-27 08:18] VITALS: BP 149/69
--- NOTE | 2024-01-27 08:37 | PTCARENOTE ---
Patient states that she ate breakfast, lunch and dinner yesterday solid foods. Jolie DUONG RN made aware. Confirmed with senior living that patient ate yesterday solid food. Patients blood sugar was 217. Anesthesia aware and no orders for insulin. Will
monitor patient.
[2024-01-27 09:45] VITALS: BP 106/53
[2024-01-27 10:00] VITALS: BP 100/36
[2024-01-27 10:15] VITALS: BP 108/50
== END 2024-01-27 10:39 ==
LOC: SDS 06:11
PROVIDERS: ATTENDING PHYSICIAN Internal Medicine Gastroenterology
DX: Z12.11 Encounter for screening for malignant neoplasm of colon (principal); D12.3 Benign neoplasm of transverse colon; K64.0 First degree hemorrhoids; K62.89 Other specified diseases of anus and rectum; K56.2 Volvulus; K22.2 Esophageal obstruction; K22.89 Other specified disease of esophagus; K31.89 Other diseases of stomach and duodenum; R12 Heartburn; R11.2 Nausea with vomiting, unspecified; R19.7 Diarrhea, unspecified; Z86.0100 Personal history of colon polyps, unspecified; Z79.01 Long term (current) use of anticoagulants
CPT/HCPCS: 45380; 43239; 88305; 82962; 88342

== ENCOUNTER → 2024-04-04 22:50 | Outpatient (REF) | payer MEDICARE, OTHER, SELFPAY ==
[2024-04-05 13:24] LABS: Urine Albumin Trace (Neg - Trace); Urine Bilirubin Negative (Negative); Urine Character Slightly Cloudy (Clear); Urine Color Yellow; Urine Glucose 3+ (Negative); Urine Ketone Negative (Negative); Urine Leukocyte Trace (Negative); Urine Nitrite Negative (Negative); Urine Occult Blood Negative (Negative); Urine Urobilinogen Negative (Neg - 1+)
[2024-04-05 14:15] LABS: Urine Squamous Cell >30 /LPF (Few)
[2024-04-05 14:18] LABS: Urine Amorphous Seen; Urine Bacteria Many (Negative)
[2024-04-05 14:19] LABS: Urine Red Blood Cell 0-2 /HPF (0-2)
== END ==
LOC: OLABN 22:50
PROVIDERS: ATTENDING PHYSICIAN Student in an Organized Health Care Education/Training Program
DX: R30.9 Painful micturition, unspecified (principal)
CPT/HCPCS: 81003; 81015; 87086

== ENCOUNTER → 2024-04-07 10:43 | Outpatient (REF) | payer MEDICARE, OTHER, SELFPAY ==
[2024-04-07 12:43] LABS: Urine Albumin Trace (Neg - Trace); Urine Bilirubin Negative (Negative); Urine Character Slightly Cloudy (Clear); Urine Color Straw; Urine Glucose 3+ (Negative); Urine Ketone Negative (Negative); Urine Leukocyte 1+ (Negative); Urine Nitrite Negative (Negative); Urine Occult Blood Negative (Negative); Urine Specific Gravity 1.005 (<1.030); Urine Urobilinogen Negative (Neg - 1+); Urine pH 6.5 (5.0-9.0)
[2024-04-07 13:01] LABS: Urine Amorphous Seen; Urine Squamous Cell >30 /LPF (Few)
[2024-04-07 13:02] LABS: Urine Bacteria Moderate (Negative); Urine Red Blood Cell None Seen /HPF (0-2)
== END ==
LOC: OLABN 10:43
PROVIDERS: ATTENDING PHYSICIAN Student in an Organized Health Care Education/Training Program
DX: R30.9 Painful micturition, unspecified (principal)
CPT/HCPCS: 81003; 81015; 87086

== ENCOUNTER → 2024-04-16 12:00 | Outpatient (REF) | payer MEDICARE, OTHER, SELFPAY ==
[2024-04-16 17:43] LABS: Urine Albumin Trace (Neg - Trace); Urine Bilirubin Negative (Negative); Urine Character Clear (Clear); Urine Color Yellow; Urine Glucose 3+ (Negative); Urine Ketone Negative (Negative); Urine Leukocyte Negative (Negative); Urine Nitrite Negative (Negative); Urine Occult Blood Negative (Negative); Urine Specific Gravity 1.015 (<1.030); Urine Urobilinogen Negative (Neg - 1+)
== END ==
LOC: OLABN 12:00
PROVIDERS: ATTENDING PHYSICIAN Student in an Organized Health Care Education/Training Program
DX: R30.9 Painful micturition, unspecified (principal)
CPT/HCPCS: 81003; 87077; 87086

== ENCOUNTER → 2024-06-29 12:52 | Outpatient (REF) | payer MEDICARE, OTHER, SELFPAY ==
[2024-06-29 13:49] LABS: Hematocrit 40.1 % (37.0-47.0); Hemoglobin 12.6 g/dL (12.0-16.0)
[2024-06-29 14:00] LABS: Albumin 3.7 g/dl (3.5-5.0); Blood Urea Nitrogen 57 mg/dl (7-17); Calcium 9.2 mg/dl (8.4-10.2); Carbon Dioxide 25 mmol/L (22-30); Chloride 106 mmol/L (98-107); Glucose 239 mg/dl (70-99); Phosphorus 4.7 mg/dl (2.5-4.5); Potassium 4.3 mmol/L (3.5-5.1); Sodium 141 mmol/L (135-145); eGFR 37.72
[2024-06-30 10:29] LABS: Intact PTH 94.6 pg/ml (13.6-85.8)
== END ==
LOC: OLABN 12:52
PROVIDERS: ATTENDING PHYSICIAN Student in an Organized Health Care Education/Training Program
DX: N18.32 Chronic kidney disease, stage 3b (principal); R80.1 Persistent proteinuria, unspecified
CPT/HCPCS: 36415; 80069; 83970; 85014; 85018

== ENCOUNTER → 2024-07-02 10:32 | Outpatient (REF) | payer MEDICARE, OTHER, SELFPAY ==
[2024-07-02 11:22] LABS: Hematocrit 35.8 % (37.0-47.0); Hemoglobin 11.3 g/dL (12.0-16.0); Mean Corp Hgb Conc. 31.6 g/dL (33.0-37.0); Mean Platelet Volume 11.2 fL (7.4-10.4); Platelet Count 119 10^3/uL (130-400); Red Blood Cell Count 3.89 10^6/uL (4.20-5.40); Red Cell Dist. Width 14.6 % (11.5-14.5); White Blood Cell Count 10.9 10^3/uL (4.8-10.8)
[2024-07-02 11:58] LABS: ALT (SGPT) 24 U/L (0-35); AST (SGOT) 18 U/L (14-36); Albumin 3.7 g/dl (3.5-5.0); Alkaline Phosphatase 119 U/L (38-126); Blood Urea Nitrogen 72 mg/dl (7-17); Calcium 8.3 mg/dl (8.4-10.2); Carbon Dioxide 21 mmol/L (22-30); Chloride 101 mmol/L (98-107); Glucose 147 mg/dl (70-99); Potassium 4.5 mmol/L (3.5-5.1); Sodium 134 mmol/L (135-145); Total Bilirubin 0.5 mg/dl (0.2-1.3); Total Protein 5.8 g/dl (6.3-8.2); eGFR 17.84
[2024-07-02 11:59] LABS: Absolute Neutrophils -Man Diff 5.4 10^3/uL (1.4-6.5); Atypical Lymphocytes 5 %; Band Neutrophils 4 % (0-3); Eosinophils 3 % (0-6); Lymphocytes 38 % (20-51); Monocytes 4 % (2-9); Platelets Checked Yes; Segmented Neutrophils 46 % (42-75)
[2024-07-02 12:00] LABS: Normal RBC Morphology Yes; Total Cells Counted 100
[2024-07-02 12:03] LABS: Glycohemoglobin (HgbA1c) 8.7 % (4.0-5.6)
[2024-07-02 14:27] LABS: TSH 2.08 uIU/ml (0.47-4.68)
[2024-07-02 15:09] LABS: Folate 5.7 ng/ml (2.76-20)
[2024-07-02 16:55] LABS: Vitamin B12 478 pg/ml (239-931)
== END ==
LOC: OLABN 10:32
PROVIDERS: ATTENDING PHYSICIAN Student in an Organized Health Care Education/Training Program
DX: R11.10 Vomiting, unspecified (principal); I10 Essential (primary) hypertension; E11.51 Type 2 diabetes mellitus with diabetic peripheral angiopathy without gangrene; Z13.29 Encounter for screening for other suspected endocrine disorder; D50.9 Iron deficiency anemia, unspecified; E53.8 Deficiency of other specified B group vitamins
CPT/HCPCS: 36415; 80053; 82607; 82746; 83036; 84443; 85025

== ENCOUNTER → 2024-07-07 07:19 | Outpatient (REF) | payer MEDICARE, OTHER, SELFPAY ==
[2024-07-07 10:54] LABS: Blood Urea Nitrogen 56 mg/dl (7-17); Calcium 8.6 mg/dl (8.4-10.2); Carbon Dioxide 24 mmol/L (22-30); Chloride 104 mmol/L (98-107); Glucose 123 mg/dl (70-99); Hematocrit 34.3 % (37.0-47.0); Mean Corp Hgb Conc. 32.1 g/dL (33.0-37.0); Mean Corpuscular Hgb 29.7 pg (27.0-31.0); Mean Corpuscular Volume 92.7 fL (81.0-99.0); Mean Platelet Volume 10.5 fL (7.4-10.4); Platelet Count 143 10^3/uL (130-400); Potassium 4.5 mmol/L (3.5-5.1); Red Cell Dist. Width 14.7 % (11.5-14.5); Sodium 139 mmol/L (135-145); White Blood Cell Count 11.3 10^3/uL (4.8-10.8); eGFR 28.41
[2024-07-07 11:03] LABS: NT-proBNP 3420 pg/ml
[2024-07-07 12:25] LABS: % Basophils 0.4 % (0-2); % Eosinophils 2.9 % (0-6); % Immature Granulocytes 0.6 % (0-0.5); % Lymphocytes 28.5 % (20.5-51.1); % Monocytes 8.6 % (1.7-9.3); Absolute Basophils 0.1 10^3/uL (0-0.2); Absolute Eosinophils 0.3 10^3/uL (0-0.7); Absolute Immature Granulocytes 0.1 10^3/uL (0-0.05); Absolute Lymphocytes 3.2 10^3/uL (1.2-3.4); Absolute Neutrophils 6.6 10^3/uL (1.4-6.5); Nucleated Red Blood Cells % 0 %
== END ==
LOC: OLABN 07:19
PROVIDERS: ATTENDING PHYSICIAN Student in an Organized Health Care Education/Training Program
DX: N18.32 Chronic kidney disease, stage 3b (principal); R09.02 Hypoxemia
CPT/HCPCS: 36415; 80048; 83880; 85025

== ENCOUNTER → 2024-07-19 10:47 | Outpatient (REF) | payer MEDICARE, OTHER, SELFPAY | LOC: RAD 10:47 | PROVIDERS: ATTENDING PHYSICIAN Registered Nurse; FAMILY PHYSICIAN Student in an Organized Health Care Education/Training Program | DX: I73.9 Peripheral vascular disease, unspecified (principal) | CPT/HCPCS: 93922; 93925 ==

== ENCOUNTER → 2024-07-25 11:23 | Outpatient (REF) | payer MEDICARE, OTHER, SELFPAY ==
[2024-07-25 12:19] LABS: HDL Cholesterol 34 mg/dl; LDL Cholesterol, Calculated 47 mg/dl; Total Cholesterol 106 mg/dl (50-199); Triglyceride 129 mg/dl (10-149); Very Low Density Lipoprotein 25 mg/dl (0-30)
== END ==
LOC: OLABN 11:23
PROVIDERS: ATTENDING PHYSICIAN Student in an Organized Health Care Education/Training Program
DX: E78.5 Hyperlipidemia, unspecified (principal)
CPT/HCPCS: 36415; 80061

== ENCOUNTER → 2024-08-27 13:50 | Outpatient (REF) | payer MEDICARE, OTHER, SELFPAY ==
[2024-08-27 15:23] LABS: HDL Cholesterol 31 mg/dl; LDL Cholesterol, Calculated 56 mg/dl; Total Cholesterol 112 mg/dl (50-199); Triglyceride 126 mg/dl (10-149); Very Low Density Lipoprotein 25 mg/dl (0-30)
== END ==
LOC: OLABN 13:50
PROVIDERS: ATTENDING PHYSICIAN Student in an Organized Health Care Education/Training Program
DX: E78.5 Hyperlipidemia, unspecified (principal)
CPT/HCPCS: 36415; 80061

== ENCOUNTER → 2024-10-08 19:30 | Outpatient (REF) | payer MEDICARE, OTHER, SELFPAY ==
[2024-10-09 12:34] LABS: Urine Character Cloudy (Clear)
[2024-10-09 15:04] LABS: Urine White Cell >100 /HPF (0-5)
== END ==
LOC: OLABN 19:30
PROVIDERS: ATTENDING PHYSICIAN Student in an Organized Health Care Education/Training Program
DX: R30.9 Painful micturition, unspecified (principal)
CPT/HCPCS: 81003; 81015; 87077; 87086

== ENCOUNTER → 2024-11-22 10:29 | Outpatient (REF) | payer MEDICARE, OTHER, SELFPAY ==
[2024-11-22 12:56] LABS: Urine Character Cloudy (Clear)
[2024-11-22 13:37] LABS: Urine Squamous Cell >30 /LPF (Few)
[2024-11-22 13:38] LABS: Urine White Cell >100 /HPF (0-5)
== END ==
LOC: OLABN 10:29
PROVIDERS: ATTENDING PHYSICIAN Student in an Organized Health Care Education/Training Program
DX: R30.9 Painful micturition, unspecified (principal)
CPT/HCPCS: 81003; 81015; 87086

== ENCOUNTER 2024-12-03 20:33 | Emergency (ER) | payer MEDICARE, OTHER, SELFPAY ==
[2024-12-03 20:37] VITALS: BP 166/66
[2024-12-03 21:02] LABS: Hematocrit 32.0 % (37.0-47.0); Hemoglobin 10.4 g/dL (12.0-16.0); Mean Corp Hgb Conc. 32.5 g/dL (33.0-37.0); Mean Corpuscular Volume 86.3 fL (81.0-99.0); Nucleated Red Blood Cells % 0 %; Platelet Count 153 10^3/uL (130-400); Red Cell Dist. Width 16.3 % (11.5-14.5)
[2024-12-03 21:24] LABS: ALT (SGPT) < 10 U/L (0-35); AST (SGOT) 12 U/L (14-36); Albumin 4.0 g/dl (3.5-5.0); Alkaline Phosphatase 108 U/L (38-126); Blood Urea Nitrogen 46 mg/dl (7-17); Calcium 8.7 mg/dl (8.4-10.2); Carbon Dioxide 23 mmol/L (22-30); Chloride 108 mmol/L (98-107); Glucose 185 mg/dl (70-99); Potassium 4.0 mmol/L (3.5-5.1); Sodium 140 mmol/L (135-145); Total Protein 6.7 g/dl (6.3-8.2); eGFR 37.72
--- NOTE | 2024-12-04 02:29 | ED.GENMED ---
History of Present Illness
<Aundrea Montenegro MD, Resident - Last Filed: 12/04/24 04:28>
General
Chief Complaint: Extremity Pain (non-traumatic)
Source: patient
Time Seen by Provider: 12/04/24 02:06
History of Present Illness
History of Present Illness:
Anastasiia is a 69-year-old female with CKD 3B, chronic pain, type 2 diabetes, A-fib on Eliquis, PAD with right BKA and left forefoot amputation, renal stones, radiculopathy, MARY ANNE, and recurrent UTIs who presents from [facility] with 4-5 weeks of
dysuria, nausea, and now with LLQ and left flank pain. She also complained of left forearm and left axillary lymph node pain. She states that she can tell when she has a UTI because she gets bilateral leg cramping and pain with pain. She is
incontinent at baseline and wears diapers. Straight cath urine sample was sent over from [facility] today and positive for UTI. She has not had any antibiotics. She also reports 5 days of left arm pain, worse with movement and better with
rest and elevation. She endorses chills, dysuria, and abdominal/flank pain to the left. She denies vomiting, dizziness, shortness of breath, or other infections.
Past History
<Aundrea Montenegro MD, Resident - Last Filed: 12/04/24 04:28>
Past History
ED Past Medical History: Arrthythmia (Atrial fibrillation), CAD, CHF, HTN, Hypercholesterolemia, IDDM, Psychiatric (Anxiety, bipolar disorder, Depression), Other (Peripheral Vascular disease, Cellulitis, MRSA, PNA, Cellulitis, UTI, Chronic back ain,
Diabetic neuropathy, PNA, Glaucoma, Anemia iron def, Herniated disc) and Other (Herniated disc)
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
Social History
Tobacco: Non-smoker (Secondhand smoke exposure)
Alcohol: None
Drug: None
Personal:
Living: detention ([facility])
Employment: Employed
Family History
Family History: Other (Father with PA, mother with diabetes, sister with diabetes)
Phy Exam
<Aundrea Montenegro MD, Resident - Last Filed: 12/04/24 04:28>
General Physical Exam
General Presentation: moderate distress
General Skin: warm and dry
Cardiovascular Exam
Cardiovascular Exam: regular rate/rhythm and no edema
Pulmonary Exam
Pulmonary Exam: lungs clear and no respiratory distress
Gastrointestinal Exam
Gastrointestinal Exam: normal bowel sounds, soft and tender (LLQ, left flank)
Musculoskeletal Exam
Musculoskeletal Exam: BKA (Right) and joint swelling (Left arm, TTP)
Sepsis
<Aundrea Montenegro MD, Resident - Last Filed: 12/04/24 04:28>
Sepsis Screening
Sepsis Assessment: Sepsis Ruled Out
Sepsis Screen
Sepsis Screen: Sepsis Ruled Out
Date: 12/04/24
Time: 04:28
Course
<Aundrea Montenegro MD, Resident - Last Filed: 12/04/24 04:28>
Orders/Labs/Results
Orders:
Orders
12/03/24 20:41
Urinalysis Reflex To Culture Urgent
Date Specimen was Collected: 12/03/24
Time Specimen was Collected: 20:41
[facility] Venous UPPER Ext LT Urgent
Comment:
Reason For Exam: pain
12/03/24 20:54
Comprehensive Metabolic Panel Urgent
12/03/24 20:55
Complete Blood Count/With Diff Urgent
12/04/24 02:38
CT Abd/pel Without Iv Or Oral Urgent
Comment:
Reason For Exam: left flank, LLQ pain, UTI
12/04/24 03:52
CefTRIAXone [Rocephin] 1,000 mg Intramuscular Injection 0 ml IM ONCE
12/04/24 03:59
Lorazepam [Ativan] 1 mg PO NOW STA
Oxycodone [Roxicodone] 5 mg PO NOW STA
Abnormal Lab Results
12/03/24 12/03/24
20:54 20:55
RBC 3.71 L 10^6/uL
(4.20-5.40)
Hgb 10.4 L g/dL
(12.0-16.0)
Hct 32.0 L %
(37.0-47.0)
MCHC 32.5 L g/dL
(33.0-37.0)
RDW 16.3 H %
(11.5-14.5)
Absolute Eos (auto) 0.9 H 10^3/uL
(0-0.7)
Lymphocytes % 18.9 L %
(20.5-51.1)
Eosinophils % 11.0 H %
(0-6)
Chloride 108 H mmol/L
(98-107)
BUN 46 H mg/dl
(7-17)
Creatinine 1.5 H mg/dL
(0.6-1.0)
Glucose 185 H mg/dl
(70-99)
AST 12 L U/L
(14-36)
12/03/24 20:55
12/03/24 20:54
Vital Signs
Initial and Last Documented VS:
Initial Vital Signs
Temp Pulse Resp BP Pulse Ox
98.6 F 91 18 166/66 95
12/03/24 20:37 12/03/24 20:37 12/03/24 20:37 12/03/24 20:37 12/03/24 20:37
Last Documented Vital Signs
Temp Pulse Resp BP Pulse Ox
98.6 F 73 20 162/67 97
12/03/24 20:37 12/04/24 04:14 12/04/24 04:14 12/04/24 04:14 12/04/24 04:14
<Nubia Ewing, DO - Last Filed: 12/04/24 04:33>
Orders/Labs/Results
Orders:
Orders
12/03/24 20:41
Urinalysis Reflex To Culture Urgent
Date Specimen was Collected: 12/03/24
Time Specimen was Collected: 20:41
US Periph Venous UPPER Ext LT Urgent
Comment:
Reason For Exam: pain
12/03/24 20:54
Comprehensive Metabolic Panel Urgent
12/03/24 20:55
Complete Blood Count/With Diff Urgent
12/04/24 02:38
CT Abd/pel Without Iv Or Oral Urgent
Comment:
Reason For Exam: left flank, LLQ pain, UTI
12/04/24 03:52
CefTRIAXone [Rocephin] 1,000 mg Intramuscular Injection 0 ml IM ONCE
12/04/24 03:59
Lorazepam [Ativan] 1 mg PO NOW STA
Oxycodone [Roxicodone] 5 mg PO NOW STA
Abnormal Lab Results
12/03/24 12/03/24
20:54 20:55
RBC 3.71 L 10^6/uL
(4.20-5.40)
Hgb 10.4 L g/dL
(12.0-16.0)
Hct 32.0 L %
(37.0-47.0)
MCHC 32.5 L g/dL
(33.0-37.0)
RDW 16.3 H %
(11.5-14.5)
Absolute Eos (auto) 0.9 H 10^3/uL
(0-0.7)
Lymphocytes % 18.9 L %
(20.5-51.1)
Eosinophils % 11.0 H %
(0-6)
Chloride 108 H mmol/L
(98-107)
BUN 46 H mg/dl
(7-17)
Creatinine 1.5 H mg/dL
(0.6-1.0)
Glucose 185 H mg/dl
(70-99)
AST 12 L U/L
(14-36)
12/03/24 20:55
12/03/24 20:54
Vital Signs
Initial and Last Documented VS:
Initial Vital Signs
Temp Pulse Resp BP Pulse Ox
98.6 F 91 18 166/66 95
12/03/24 20:37 12/03/24 20:37 12/03/24 20:37 12/03/24 20:37 12/03/24 20:37
Last Documented Vital Signs
Temp Pulse Resp BP Pulse Ox
98.6 F 73 20 162/67 97
12/03/24 20:37 12/04/24 04:14 12/04/24 04:14 12/04/24 04:14 12/04/24 04:14
<Aundrea Montenegro MD, Resident - Last Filed: 12/04/24 04:28>
MDM/Problems Addressed
MDM/Problems Addressed:
Anastasiia is a 69-year-old female with CKD 3B, chronic pain, type 2 diabetes, A-fib on Eliquis, PAD with right BKA and left forefoot amputation, renal stones, radiculopathy, MARY ANNE, and recurrent UTIs who presents from [facility] with 4-5 weeks of
dysuria, nausea, and now with LLQ and left flank pain.
#Dysuria
#Nausea
#LLQ and left flank pain, chronic versus acute
Patient complaining of 4-5 weeks of urinary discomfort and dysuria. Uses diapers and incontinent at baseline. History of stones and UTI.
- WBC 8.3
- CT A/P without contrast unremarkable for any acute stone, chronic left hydronephrosis and left lung base atelectasis seen
- UA straight cath positive for 3+ leukocyte esterase,>100 WBC, bacteria
- IM Rocephin x 1: DC home on p.o. cefpodoxime 200 mg once daily
- Home dose oxycodone 5 mg once and lorazepam 1 mg once
#Left arm pain
Patient states this started 4/[address] [facility] staff told her to get her left axillary lymph nodes ultrasound in the ED.
- Upper extremity peripheral venous ultrasound without evidence for LUE venous thrombosis.
<Aundrea Montenegro MD, Resident - Last Filed: 12/04/24 04:28>
*Pulse Oximetry
SaO2: 95
Oxygen Mode of Delivery: Room air
Patient hypoxic: no
*Critical Care Note
Total Time (30-74mins, 75-104mins- exclusive of procedures): Not Applicable
ED Attending Note
<Aundrea Montenegro MD, Resident - Last Filed: 12/04/24 04:28>
-
Portions of this chart may have been created with voice recognition software.� Occasional wrong word or��sound alike� substitutions may have occurred due to the inherent limitations of voice recognition software.
<Nubia Ewing DO - Last Filed: 12/04/24 04:33>
ED Attending Note
Patient seen and examined by attending physician: Yes
I performed the substantive portion of visit, reviewed & personally made and approve the management plan that is documented in note by myself or JOSUE.: Yes
ED Attending Note:
This is a 69-year-old woman with complex past medical history, chronic resident of a local detention. She has history of diabetes, diabetic neuropathy, peripheral vascular disease, right below the knee amputation, PAF chronically maintained on
Eliquis, CHF, chronic kidney disease, frequent UTIs, osteoarthritis with chronic back pain and chronic left shoulder pain. She states she received steroid injections to her left shoulder generally every 3 months with last injection approximately 3
months ago. She admits that she is due for follow-up with orthopedics.
She presents with several week history of UTI symptoms as well as complaints of bilateral lower extremity pain which she states generally worsens with her UTIs. She has not had a fever.
Outpatient urinalysis on November 21 showed greater than 100 WBCs, many bacteria, leukocyte esterase positive. Urine culture grew 80,000 colony count mixed farideh concerning for contaminated specimen. As such she was not started on an antibiotic.
She continues with UTI symptoms, worsening over the past several days. Patient complains of subjective fevers but no reported fever from detention. She has been afebrile since arrival to the ED.
She also notes several day history of left shoulder pain, worse with movement. No recent falls. She is wheelchair-bound. She denies chest pain or coughing or shortness of breath.
69-year-old overweight woman appears somewhat older than stated age. Appears chronically debilitated, bedbound. Easily communicative, in no acute distress.
Oral mucosa is moist.
Neck is supple, nontender.
Heart is regular rate and rhythm.
Lungs have minimally decreased breath sounds at bases otherwise clear to auscultation. No respiratory distress.
Abdomen is rotund, soft, minimal tenderness left lateral flank. Abdomen is otherwise soft without appreciable tenderness.
Extremities: Mild tenderness about the left shoulder with minimal crepitus with abduction of the left shoulder greater than 90 degrees. There is no axillary fullness nor adenopathy. There is no soft tissue swelling nor erythema.
Right below the knee amputation.
Prior records reviewed.
Urinalysis from detention from earlier today suspicious for UTI showing many bacteria, greater than 100 WBCs, +3 leukocyte esterase. Only 6-10 squamous epithelial cells.
Laboratory studies are reassuring with normal white blood cell count. Mild but stable anemia.
Creatinine of 1.3, improved from previous.
Although no complaints of abdominal pain and only noted some left lateral flank pain during physical exam, there is some concern for kidney stone, pyelonephritis is also a consideration but reassuring that patient has not had a fever and normal
white blood cell count.
Will check CT abdomen pelvis.
Will plan for IM dose of Rocephin.
Left shoulder pain, appears acute on chronic in nature. Appears musculoskeletal in nature, worse with movement. There is no evidence of inflammatory arthropathy. No axillary adenopathy. No edema. Ultrasound of the left upper upper extremity is
negative for DVT.
Maintained on as needed oxycodone.
CAT scan shows chronic left hydronephrosis but no evidence of obstructing stone. Upon review of previous CAT scans, similar hydronephrosis noted on previous CAT scans October 2023 and June 2023. Likely chronic in nature. As above, reassuring that
patient has remained afebrile and normal white blood cell count. Nothing to suggest sepsis nor pyelonephritis.
Plan as above. Will give an IM dose of Rocephin and will discharge back to detention with a prescription for Vantin. Renal dosed once daily.
Recommend follow-up with PCP as well as with orthopedist.
Return precautions discussed.
Discharge Plan
Departure
Patient Disposition: Long-Term/SNF
Date of Disposition: 12/04/24
Time of Disposition: 04:17
Patient with high blood pressure during this ER visit?: No
Condition: Good
Discharge Problem:
Acute cystitis, Chronic left shoulder pain, Chronic kidney disease, stage 3a
Instructions: Urinary tract infection (DC)
Prescriptions:
New
cefpodoxime 200 mg tablet
200 mg PO DAILY Qty: 7 0RF
No Action
trazodone 50 MG tablet
75 mg PO HS
insulin aspart U-100 [Novolog FlexPen U-100 Insulin] 300 UNITS/3 ML insulin pen
0 - 12 sliding scale dose SC MEALS
Rx Instructions:
Sliding Scale: if 151-200= 2u; 201-250= 4u; 251-300= 6u; 301-350= 8u; 351-400= 10u; >400= 12u
fluoxetine 40 mg Capsule
40 mg PO DAILY@1430
Rx Instructions:
To be given with Fluoxetine 10mg to equal prescribed dose of 50mg daily.
lamotrigine [Lamictal] 150 mg Tablet
150 mg PO QPM
atorvastatin 80 mg tablet
80 mg PO HS
acetaminophen 325 mg Tablet
650 mg PO Q4H MDD 3000 mg PRN (Reason: mild pain/fever >100.4)
lidocaine 4 % Adhesive Patch,Medicated
1 patch TOPICAL DAILYPRN PRN (Reason: left lateral shoulder)
diclofenac sodium 1 % Gel
2 g TOPICAL BID
latanoprost [Xalatan] 0.005 % Drops
1 drp BOTH EYES HS
loperamide [Imodium A-D] 2 mg Tablet
2 mg PO Q6HPRN PRN (Reason: diarrhea)
bisacodyl 10 mg Suppository
10 mg PA DAILYPRN PRN (Reason: no BM 3 days, if MOM ineffective)
Patient Comments:
Greater than 8 days ago per Long-Term
ferrous sulfate [iron] 325 mg (65 mg iron) Tablet
325 mg PO MOWEFR
Fleet Enema 19-7 gram/118 mL Enema
118 ml PA DAILY PRN (Reason: no results from/refuse suppository)
Patient Comments:
Greater than 8 days per Long-Term
lorazepam [Ativan] 1 mg Tablet
1 mg PO BID
fluoxetine 10 mg Capsule
10 mg PO DAILY@1430
Rx Instructions:
To be given w/ Fluoxetine 40mg to equal prescribed dose of 50mg daily.
ondansetron 4 mg tablet,disintegrating
4 mg PO Q6HPRN PRN (Reason: nausea/vomiting)
carvedilol 6.25 MG tablet
6.25 mg PO BID
aripiprazole [Abilify] 5 mg Tablet
5 mg PO HS
insulin glargine [Lantus Solostar U-100 Insulin] 100 unit/mL (3 mL) Insulin Pen
20 unit SC BID
Jardiance 25 mg Tablet
25 mg PO DAILY
oxycodone 5 mg Capsule
5 mg PO Q8HPRN PRN (Reason: Acute pain)
cetirizine 10 mg Capsule
10 mg PO QPM
bumetanide 1 mg Tablet
1 mg PO BID
apixaban 5 mg Tablet
5 mg PO BID
pramipexole 0.125 mg Tablet
0.125 mg PO QPM
aspirin 81 mg Tablet,Delayed Release (Dr/Ec)
81 mg PO QPM
Entresto 24-26 mg Tablet
1 tab PO BID
brimonidine 0.15 % Drops
1 drp LEFT EYE Q12H
omeprazole 40 mg Capsule,Delayed Release(Dr/Ec)
40 mg PO DAILY
dorzolamide-timolol 22.3-6.8 mg/mL Drops
1 drp LEFT EYE BID
fluocinolone 0.01 % Solution
1 applic TOPICAL DAILY
Patient Comments:
10/24/23: left parietal scalp and right posterior neck
Linzess 145 mcg Capsule
145 mcg PO DAILY
Patient Comments:
10/24/23: Note from 10/19/23, trial dosage, if diarrhea go to 72mcg, if constipation occurs go to 290mcg
cefuroxime axetil 250 mg Tablet
250 mg PO BID Qty: 6 0RF
gabapentin 100 mg Capsule
100 mg PO HS Qty: 30 0RF
insulin aspart U-100 [Novolog U-100 Insulin aspart] 100 unit/mL Solution
7 unit SC MEALS Qty: 0 0RF
Patient Comments:
per nurse at [facility], pt did not receive this med this am, 01/27/24
Referrals:
Paulo Loera DO [Family Provider, Family Practice] - Follow up in 2-3 days
Interventions
Interventions:
*Risk Screen - Suicide Last Done: 12/03/24 20:37
*General Assessment Last Done: 12/04/24 02:17
*Neglect/Abuse Screening Last Done: 12/03/24 20:37
*ED- Fall Risk Assessment Last Done: 12/04/24 02:17
*ED COVID-19 Vaccine History Last Done: 12/04/24 02:17
ED-Skin Assessment Last Done: 12/04/24 02:17
ED-Musculoskeletal Assessment Last Done: 12/04/24 02:17
Discharge Date and Time
Print Language: YORUBA
[2024-12-04 04:14] VITALS: BP 162/67
[2024-12-04] MEDS: ATIVAN 1 MG PO (04:22)
[2024-12-04] MEDS: ROXICODONE 5 MG PO ×2 (04:22→09:56)
[2024-12-04 05:08] VITALS: BP 158/61
[2024-12-04] MEDS: ROCEPHIN 2.8571 MG IM (05:35)
[2024-12-04 08:00] VITALS: BP 168/61
--- NOTE | 2024-12-04 10:20 | EDRN ---
Report called to ANABELL Taveras at [facility]. Reviewed discharge instructions with ANABELL Taveras.
--- NOTE | 2024-12-04 10:32 | EDRN ---
Report given to Jose from [facility].
[2024-12-04 10:33] VITALS: BP 160/100
== END 2024-12-04 10:30 ==
LOC: EMR 20:33
PROVIDERS: Emergency Medicine; EMERGENCY PHYSICIAN Emergency Medicine; FAMILY PHYSICIAN Student in an Organized Health Care Education/Training Program
DX: N30.00 Acute cystitis without hematuria (principal); M25.512 Pain in left shoulder; I13.0 Hypertensive heart and chronic kidney disease with heart failure and stage 1 through stage 4 chronic kidney disease, or unspecified chronic kidney disease; I50.9 Heart failure, unspecified; E11.22 Type 2 diabetes mellitus with diabetic chronic kidney disease; N18.32 Chronic kidney disease, stage 3b; I48.91 Unspecified atrial fibrillation; I25.10 Atherosclerotic heart disease of native coronary artery without angina pectoris; E11.40 Type 2 diabetes mellitus with diabetic neuropathy, unspecified; E11.51 Type 2 diabetes mellitus with diabetic peripheral angiopathy without gangrene; E78.00 Pure hypercholesterolemia, unspecified; F31.9 Bipolar disorder, unspecified; F41.9 Anxiety disorder, unspecified; H40.9 Unspecified glaucoma; Z74.01 Bed confinement status; Z77.22 Contact with and (suspected) exposure to environmental tobacco smoke (acute) (chronic); Z79.01 Long term (current) use of anticoagulants; Z82.49 Family history of ischemic heart disease and other diseases of the circulatory system; Z83.3 Family history of diabetes mellitus; Z87.01 Personal history of pneumonia (recurrent); Z87.440 Personal history of urinary (tract) infections; Z89.511 Acquired absence of right leg below knee; Z95.5 Presence of coronary angioplasty implant and graft; Z99.3 Dependence on wheelchair
CPT/HCPCS: 99284; 96374; 74176; 80053; 81003; 81015; 85025; 87086; 93971

== ENCOUNTER → 2024-12-05 12:07 | Outpatient (REF) | payer MEDICARE, OTHER, SELFPAY ==
[2024-12-05 13:37] LABS: Magnesium 2.0 mg/dl (1.6-2.3)
[2024-12-05 13:47] LABS: Glycohemoglobin (HgbA1c) 6.4 % (4.0-5.6)
== END ==
LOC: OLABN 12:07
PROVIDERS: ATTENDING PHYSICIAN Student in an Organized Health Care Education/Training Program
DX: N18.32 Chronic kidney disease, stage 3b (principal); Z79.899 Other long term (current) drug therapy
CPT/HCPCS: 36415; 83036; 83735

== ENCOUNTER → 2024-12-14 10:12 | Outpatient (REF) | payer MEDICARE, OTHER, SELFPAY | LOC: WDC 10:12 | PROVIDERS: ATTENDING PHYSICIAN Nurse Practitioner | DX: N64.4 Mastodynia (principal) | CPT/HCPCS: 76642; 77062; 77066 ==

== ENCOUNTER → 2025-01-08 10:43 | Outpatient (REF) | payer MEDICARE, OTHER, SELFPAY ==
[2025-01-08 11:41] LABS: ALT (SGPT) 11 U/L (0-35); AST (SGOT) 12 U/L (14-36); Albumin 3.7 g/dl (3.5-5.0); Alkaline Phosphatase 89 U/L (38-126); Blood Urea Nitrogen 60 mg/dl (7-17); Calcium 8.8 mg/dl (8.4-10.2); Carbon Dioxide 28 mmol/L (22-30); Chloride 109 mmol/L (98-107); Glucose 112 mg/dl (70-99); Potassium 4.5 mmol/L (3.5-5.1); Sodium 144 mmol/L (135-145); Total Protein 6.3 g/dl (6.3-8.2); eGFR 32.46
== END ==
LOC: OLABN 10:43
PROVIDERS: ATTENDING PHYSICIAN Student in an Organized Health Care Education/Training Program
DX: N18.32 Chronic kidney disease, stage 3b (principal)
CPT/HCPCS: 36415; 80053